=== PATIENT | female | born 1940 ===

== ENCOUNTER 2024-06-04 08:29 | Emergency (ER) | payer BC, SELFPAY ==
--- NOTE | ~2024-06-04 | XR_ITS ---
EXAMINATION: XR hip BI 2V w AP pelvis DATE: 06/04/2024 10:03 INDICATION: Fall post right hip surgery one week prior TECHNIQUE: Anteroposterior view of the pelvis and anteroposterior and frog-leg lateral views of the l eft hip and anteroposterior and cross-table lateral views of the right hip and were obtained. COMPARISON: None. FINDINGS: Mild lumbar levocurvature with at least moderate lower lumbar spondylosis. Subcapital fracture of the proximal right femur which is fixed with 3 cannulated screws with washers. No other fractures identi fied. Mild bilateral hip and sacroiliac osteoarthritis. Atherosclerotic calcifications in the pelvis and left groin. IMPRESSION: 1. Laterally impacted subcapital fracture of the proximal right femur with screw fixation. No acute o sseous abnormality. Reviewed, dictated and finalized at location B. TURNER IMPRESSION: 1. Laterally impacted subcapital fracture of the proximal right femur with scre w fixation. No acute osseous abnormality.
--- NOTE | ~2024-06-04 | CT_ITS ---
CT head without contrast Indication: Status post fall Technique: Serial scans were obtained through the brain without the administration of contrast. Dose reduction technique was used on this scan by utilizing automated exposure control and iterative recon struction technique. The dose-length product (DLP) was 605.33 mGy-cm. Findings: There is no evidence of intracranial hemorrhage, mass lesion, or acute infarct. The ventri cles and subarachnoid spaces are dilated, consistent with moderate atrophy. Low attenuation regions are seen within the periventricular white matter bilaterally, likely representing changes from chroni c microvascular ischemic disease. There is no evidence of edema, mass effect or midline shift. The visualized paranasal sinuses and mastoid air cells are clear. Impression: No intracranial hemorrhage, mass, or acute infarct. Atrophy and chronic white matter changes, as above. Reviewed, dictated and finalized at location . WINDER Impression: No intracranial hemorrhage, mass, or acute infarct. Atrophy and chronic white matter changes, as above.
--- NOTE | ~2024-06-04 | XR_ITS ---
EXAMINATION: XR chest 2V DATE: 06/04/2024 10:03 INDICATION: Fall post hip surgery one week prior TECHNIQUE: frontal and lateral views of the chest were obtained. COMPARISON: None FINDINGS: There are coarse interstitial opacities in the bilateral mid and lower lung zones which could represe nt mild pulmonary edema or less likely pneumonia in the acute setting or more chronic interstitial talat ng disease. No pleural effusion or pneumothorax. Heart size is normal. Mild S-shaped curvature of the thoracic and lumbar spine with severe midthoracic spondylosis. Surgical clips at the base of the nec k. Cholecystectomy clips in right upper quadrant. IMPRESSION: 1. Coarse interstitial pattern in the bilateral mid and lower lung zones which could represent mild p ulmonary edema, atelectasis, pneumonia or chronic interstitial lung disease. Reviewed, dictated and finalized at location B. MANAGER IMPRESSION: 1. Coarse interstitial pattern in the bilateral mid and lower lung zones which could represent mild pulmonary edema, atelectasis, pneumonia or chronic interst itial lung disease.
--- NOTE | ~2024-06-04 | CT_ITS ---
EXAMINATION: CT cervical spine wo con DATE: 06/04/2024 10:06 INDICATION: Fall TECHNIQUE: Computed tomography (CT) of the cervical spine was performed without intravenous contrast. Automated exposure control and iterative reconstruction technique were employed. The dose-length pr oduct was 138.28 mGy-cm. COMPARISON: None FINDINGS: 7 degrees cervicothoracic levocurvature. There is one-2 mm anterolisthesis C3 on C4 and 1-2 mm retrol isthesis C5 on C6. Moderate osteoarthritis at the atlantoaxial articulation. Vertebral body heights a re normal. No fracture. Severe disc height loss with severe uncovertebral osteoarthritis at C4-C5 and C5-C6. Mild to moderate right-sided predominant disc height loss at C6-C7. Mild disc height loss at C3-C4 and C7-T1. Posterior endplate osteophytes contribute to mild central canal stenosis at C4-C5, C 5-C6 and C6-C7. Severe facet osteoarthritis on the right at C2-C3 and C3-C4 and on the left at C4-C5, C6-C7 and C7-T1. Mild to moderate facet osteoarthritis and remainder of the cervical spine. This con tributes to mild neural from stenosis at multiple levels on both the left and right size of the cervi jordon spine. There are surgical clips at the neck likely related to prior thyroidectomy. Mild emphysema and mild biapical pleural-parenchymal scarring. IMPRESSION: 1. Severe cervical spondylosis with no acute osseous abnormality. Reviewed, dictated and finalized at location B. FEEDER OPERATOR
[2024-06-04 08:30] VITALS: BP 141/71; PULSE 91; RESP 18; O2SAT 93
--- NOTE | 2024-06-04 09:27 | ED_ITS ---
HPI - General Adult General Chief complaint: Fall Stated complaint: fall, R hip pain, recent R hip sx Time Seen by Provider: 06/04/24 09:14 History of Present Illness HPI narrative: Savannah Curry is an 84-year-old female who presents from nursing rehab facility that she is staying at after being 1 week post right hip surgery. Patient has past medical history of AFib she is on Eliquis daily, she has a history of dementia her and a recent urinary tract infection. On arrival here in the exam she is alert and oriented x4 she is requiring 2 L of oxygen which she states that has been ongoing off and on at the nursing facility since she has been there. She also states that she had a fall last night around 2330 but she is not exactly sure if she just slipped from the edge of the bed or how she fell out of the bed but staff found her on the floor and she could not get up on her own and staff assisted her up off of the floor. She denies hitting her head she denies having loss consciousness she only complains of having pain to the right hip that was postsurgical. Related Data Home Medications ?Medication ?Instructions ?Recorded ?Confirmed ?Last Taken ?Type acetaminophen 325 mg tablet 650 mg PO TID 05/30/24 05/30/24 Unknown History apixaban 5 mg tablet (Eliquis) 5 mg PO BID 05/30/24 05/30/24 Unknown History cevimeline 30 mg capsule 30 mg PO TID 05/30/24 05/30/24 Unknown History cyanocobalamin (vitamin B-12) 100 100 mcg PO DAILY 05/30/24 05/30/24 Unknown History mcg tablet diltiazem HCl 120 mg 120 mg PO DAILY 05/30/24 05/30/24 Unknown History capsule,extended release 12 hr (Cardizem SR) esomeprazole magnesium 40 mg 40 mg PO DAILY 05/30/24 05/30/24 Unknown History capsule,delayed release guaifenesin 1,200 mg tablet, 1,200 mg PO DAILY 05/30/24 05/30/24 Unknown History extended release 12 hr hydroxyzine HCl 10 mg tablet 5 mg PO HS PRN unspecified 05/30/24 05/30/24 Unknown History levothyroxine 112 mcg capsule 112 mcg PO DAILY 05/30/24 05/30/24 Unknown History lidocaine 5 % topical patch 1 patch topical Q24H 05/30/24 05/30/24 Unknown History methocarbamol 750 mg tablet 750 mg PO TID 05/30/24 05/30/24 Unknown History multivitamin 1 tablet PO DAILY 05/30/24 05/30/24 Unknown History oxycodone 5 mg tablet 2.5 mg PO Q4H PRN pain 05/30/24 05/30/24 Unknown History polyethylene glycol 3350 17 gram 17 g PO DAILY 05/30/24 05/30/24 Unknown History oral powder packet rosuvastatin 10 mg tablet 10 mg PO HS 05/30/24 05/30/24 Unknown History sennosides 8.6 mg-docusate sodium 1 tab-cap PO BID 05/30/24 05/30/24 Unknown History 50 mg tablet sertraline 100 mg tablet 100 mg PO DAILY 05/30/24 05/30/24 Unknown History Allergies Allergy/AdvReac Type Severity Reaction Status Date / Time codeine Allergy Diarrhea, Verified 06/04/24 10:29 Nausea, Vomitting sulfamethoxazole (From Allergy Hives, Verified 06/04/24 10:29 Sulfamethoxazole-Trimethoprim) Rash, Diarrhea trimethoprim (From Allergy Hives, Verified 06/04/24 10:29 Sulfamethoxazole-Trimethoprim) Rash, Diarrhea morphine AdvReac Hallucinati Verified 06/04/24 10:29 ng prednisone AdvReac Itching Verified 06/04/24 10:29 Review of Systems 2 Review of Systems: All systems reviewed & are unremarkable except as noted in HPI and below PMFSH Social History Social History Smoking status: Never smoker Alcohol intake: current Drinks per week: 1 Substance use: never Substance use type: does not use Do You Feel Safe in your Home?: Yes Lack of Transportation: No Lack of Food: Never True Current Housing: I Have Housing Concerned About Future Housing: No Difficulty Paying Gas/Electric Bills: No Difficulty Paying for Meds: No Currently Unemployed: No Education: High School Diploma/GED Difficulty w/ Childcare or Family Care: No Spiritual care concerns: No Exam 2 Narrative: GENERAL: Well-appearing, well-nourished, and in no acute distress. HEAD: Normocephalic, atraumatic. EYES: PERRLA and EOMI. ENT: Nares clear, no rhinorrhea or epistaxis. NECK: Supple. No adenopathy or masses. No carotid bruits or JVD CHEST: Clear to auscultation. No respiratory distress. No wheezes rales or rhonchi HEART: Regular rate and rhythm. No murmur heard. Normal peripheral pulses. ABDOMEN: Soft, nontender, nondistended, normal active bowel sounds. EXTREMITIES: Right hip postop dressing in place, mild swelling to the right hip area distal pulses present. Left lower extremity full range of motion intact pain distal pulses present. SKIN: Warm, dry, no rash. NEURO: No focal deficits. Alert and oriented x4 PSYCH: Normal mood and affect. Course Vital Signs Vital signs: Vital Signs Pulse Rate 91 06/04/24 08:30 Respiratory Rate 18 06/04/24 08:30 Blood Pressure 141/71 H 06/04/24 08:30 Pulse Oximetry 93 06/04/24 08:30 Oxygen Delivery Nasal Cannula 06/04/24 08:30 Oxygen Flow Rate 2 06/04/24 08:30 Temperature 36.6 C 06/04/24 14:21 Pulse Rate 98 06/04/24 16:18 Respiratory Rate 16 06/04/24 16:18 Blood Pressure 132/75 06/04/24 16:18 Pulse Oximetry 94 06/04/24 16:18 Oxygen Delivery Nasal Cannula 06/04/24 08:30 Oxygen Flow Rate 2 06/04/24 08:30 Medical Decision Making [facility] Narrative Medical decision making narrative: 82-year-old female who presents status post fall from rehab facility that happened last night around 2330. Patient states that she is not quite sure how she fell out of the bed but was able to get up by herself. She complains of pain to her right hip although did not want pain medicine in route and does not want pain medicine at this time either. She denies any shortness of breath, denies chest pain, denies any urinary symptoms denies cough denies sore throat denies runny nose or congestion. On exam patient is alert and oriented x4 there is no obvious facial trauma lung sounds clear bilaterally bowel sounds present no abdominal pain with palpation. Positive pain to her right hip surgery new pains bilateral pulses strong +2 Concern for head injury being on blood thinners, hip fracture, pneumothorax, Plan to check labs including UA with a recent UTI and imaging. CBC-white blood cell 10.2, RBCs 3.79, hemoglobin 11.5 platelet count 418 CMP-creatinine 0.52, otherwise unremarkable UA-trace leuks otherwise unremarkable [id number] non diagnostic Chest x-ray-1. Coarse interstitial pattern in the bilateral mid and lower lung zones which could represent mild pulmonary edema, atelectasis, pneumonia or chronic interstitial lung disease. CT brain-No intracranial hemorrhage, mass, or acute infarct. Atrophy and chronic white matter changes, as above. CT cervical spine-1. Severe cervical spondylosis with no acute osseous abnormality. X-ray had bilateral with pelvis -1. Laterally impacted subcapital fracture of the proximal right femur with screw fixation. No acute osseous abnormality. Discussed the labs and imaging with patient and her family and his her admission here for treatment of pneumonia for closer monitoring since she is requiring 2 L oxygen he had IV antibiotics. After to waiting for admission bad the coordinator of the rehab facility reached out and said that they can take her back continue oxygen and continue antibiotics for her pneumonia and keep a close eye on her. We discussed this plan this alternate plan with patient and family and they both agree that they would like to go back to rehab facility continue antibiotics and keep her on oxygen she can follow up with her primary care doctor for repeat x-ray. Encouraged patient to apply that she has had more symptoms or has any increased shortness of breath chest pain then she should return to the ER. And written orders to wear 2 L of oxygen while at rest and increased oxygen from 2-4 L and a activity. Written orders for continuation of azithromycin 250 mg x 1 for 4 more days and to continue ceftriaxone 1 g once daily for the next week. Medical Records Medical records reviewed: Yes I reviewed the external patient's medical records. Vital Signs Vital Signs: Vital Signs Pulse Rate 91 06/04/24 08:30 Respiratory Rate 18 06/04/24 08:30 Blood Pressure 141/71 H 06/04/24 08:30 Pulse Oximetry 93 06/04/24 08:30 Oxygen Delivery Nasal Cannula 06/04/24 08:30 Oxygen Flow Rate 2 06/04/24 08:30 Temperature 36.6 C 06/04/24 14:21 Pulse Rate 98 06/04/24 16:18 Respiratory Rate 16 06/04/24 16:18 Blood Pressure 132/75 06/04/24 16:18 Pulse Oximetry 94 06/04/24 16:18 Oxygen Delivery Nasal Cannula 06/04/24 08:30 Oxygen Flow Rate 2 06/04/24 08:30 We will review by me Lab Data Lab results reviewed: Yes I reviewed the patient's lab results. 06/04/24 10:29 06/04/24 10:29 Labs: Lab Results 06/04/24 Range/Units 10:29 WBC 10.2 H (4.5-10.0) K/mm3 RBC 3.79 L (4.2-5.4) M/mm3 Hgb 11.5 L (12.0-15.0) g/dL Hct 35.4 L (37.0-47.0) % MCV 93.4 (80-100) fl MCH 30.3 (26-34) pg MCHC 32.5 (32-36) g/dl RDW 15.8 H (11.5-14.5) % Plt Count 418 H D (150-375) k/mm3 MPV 10.1 (7.4-10.4) fl Immature Gran % (Auto) 0.9 H (0-0.5) % Neut % (Auto) 80.5 H (45.5-73.1) % Lymph % (Auto) 9.2 L (18.3-44.2) % [place] % (Auto) 7.4 (2.6-8.5) % Eos % (Auto) 1.6 (0-4.4) % Baso % (Auto) 0.4 (0.2-1.2) % Lymph # (Auto) 0.93 (0.9-3.2) K/mm3 [place] # (Auto) 0.8 H (0.1-0.6) K/mm3 Eos # (Auto) 0.2 (0-0.3) K/mm3 Baso # (Auto) 0.0 (0.0-0.1) K/mm3 Abs Immat Gran (auto) 0.09 H (0.00-0.031) K/mm3 Absolute Neuts (auto) 8.2 H (1.3-6.7) K/mm3 Absolute Nucleated RBC 0.000 (0.0-0.012) K/mm3 Nucleated RBC % 0.0 (0.0-0.2) % Sodium 137 (137-145) mmol/L Potassium 4.1 (3.4-5.0) mmol/L Chloride 101 (98-107) mmol/L Carbon Dioxide 28 (22-30) mmol/L Anion Gap 8 (4-12) mmol/L BUN 10 (7-17) mg/dL Creatinine 0.52 L (0.7-1.0) mg/dL Estim Creat Clear Calc 55 ml/min Estimated GFR > 60 (59 - ) Glucose 120 H (65-110) mg/dL Calcium 8.3 L (8.4-10.2) mg/dL Total Bilirubin 0.6 (0.2-1.3) mg/dL AST 29 (14-36) U/L ALT 19 (6-35) U/L Alkaline Phosphatase 133 H (38-126) U/L NT-Pro-B Natriuret Pep 231 H (19.9-100) pg/mL Total Protein 7.0 (6.3-8.2) g/dL Albumin 3.7 (3.5-5.1) g/dL Urine Color Yellow (Yellow) Urine Appearance Clear (Clear) Urine pH 7.5 (5.0-9.0) Ur Specific [place] 1.009 (1.001-1.035) Urine Protein Negative (Negative) mg/dL Urine Glucose (UA) Negative (Negative) mg/dL Urine Ketones Negative (Negative) mg/dL Ur Blood (Man) Negative (Negative) Urine Nitrate Negative (Negative) Urine Bilirubin Negative (Negative) Urine Urobilinogen 0.2 (<2.0) mg/dL Leukocyte Esterase Rfl Trace H (Negative) MATT/UL Urine RBC 0-2 (0-2) /hpf Urine WBC 0-5 (0-3) /hpf Ur Squamous Epith Cells None seen (Few) /hpf Urine Bacteria None seen /hpf Urine Casts 0-2 Imaging Data Radiologist's impression: Impressions Chest X-Ray 06/04/24 10:06 IMPRESSION: 1. Coarse interstitial pattern in the bilateral mid and lower lung zones which could represent mild pulmonary edema, atelectasis, pneumonia or chronic interstitial lung disease. Head CT 06/04/24 10:08 Impression: No intracranial hemorrhage, mass, or acute infarct. Atrophy and chronic white matter changes, as above. Hip/Pelvis X-Ray 06/04/24 10:08 IMPRESSION: 1. Laterally impacted subcapital fracture of the proximal right femur with screw fixation. No acute osseous abnormality. Cervical Spine CT 06/04/24 10:23 IMPRESSION: 1. Severe cervical spondylosis with no acute osseous abnormality. Discharge Plan Discharge Clinical Impression: Pneumonia Qualifiers: Pneumonia type: due to unspecified organism Laterality: bilateral Lung location: unspecified part of lung Qualified Code(s): J18.9 - Pneumonia, unspecified organism Patient Disposition: Inpatient Rehab Facility Condition: Stable Time of Disposition: 14:53
[2024-06-04 10:31] VITALS: BP 142/64; PULSE 86; RESP 18; O2SAT 92
[2024-06-04 10:44] LABS: Basophils Percent Auto 0.4 % (0.2-1.2); Eosinophils Absolute Auto 0.2 K/mm3 (0-0.3); Eosinophils Percent Auto 1.6 % (0-4.4); Hematocrit 35.4 % (37.0-47.0); Hemoglobin 11.5 g/dL (12.0-15.0); Immature Granulocyte Absolute 0.09 K/mm3 (0.00-0.031); Immature Granulocyte Percent A 0.9 % (0-0.5); Lymphocytes Absolute Auto 0.93 K/mm3 (0.9-3.2); Lymphocytes Percent Auto 9.2 % (18.3-44.2); Mean Corpuscular HGB Conc 32.5 g/dl (32-36); Mean Corpuscular Hemoglobin 30.3 pg (26-34); Mean Corpuscular Volume 93.4 fl (80-100); Mean Platelet Volume 10.1 fl (7.4-10.4); Monocytes Absolute Auto 0.8 K/mm3 (0.1-0.6); Monocytes Percent Auto 7.4 % (2.6-8.5); Neutrophils Absolute Auto 8.2 K/mm3 (1.3-6.7); Neutrophils Percent Auto 80.5 % (45.5-73.1); Platelet Count Result 418 k/mm3 (150-375); Red Blood Count 3.79 M/mm3 (4.2-5.4); Red Cell Distribution Width 15.8 % (11.5-14.5); White Blood Count 10.2 K/mm3 (4.5-10.0)
[2024-06-04 10:50] LABS: Add Urine Microscopic? YES; Appearance Urine Clear (Clear); Bacteria Urine None Seen /hpf; Bilirubin Urine Negative (Negative); Blood Urine Negative (Negative); Color Urine Yellow (Yellow); Glucose Urine UA Negative (Negative); Ketones Urine Negative (Negative); Leukocyte Esterase Ur Trace LEU/UL (Negative); Nitrate Urine Negative (Negative); Non Pathogenic Casts 0-2; Protein Urine Negative (Negative); RBC Urine 0-2 /hpf (0-2); Specific Grav Ur 1.009 (1.001-1.035); Squamous Epithelial Cell Urine None Seen /hpf (Few); Urobilinogen Urine 0.2 mg/dL (<2.0); WBC Urine 0-5 /hpf (0-3); pH Urine 7.5 (5.0-9.0)
--- OUTSIDE RECORDS SUMMARY | 2024-06-04 10:51 | XMS_ITS ---
Author Organization [facility] [address] [place] [id number] Care Team Providers Care Rag Boiler Name Role Phone Mohan Kerr MD Primary Care Provider + [phone] Behzad Fagan MD Unavailable Tamiko Teran MD Unavailable [phone] Active Problems Problem Noted Date Diagnosed Date Cognitive decline 05/28/2024 Assessment & Plan (05/28/2024 2:15 PM HADOOP ARCHITECT): - Noted by family - Score low on cognitive exam by OT - Outpatient referral to Neurology- memory clinic Acute traumatic pain 05/27/2024 Assessment & Plan (05/27/2024 12:16 PM HADOOP ARCHITECT): - Tylenol 650mg q6h - Robaxin 750mg TID - Oxycodone 2.5mg q4h PRN Acute blood loss anemia 05/27/2024 Assessment & Plan (05/30/2024 11:52 AM HADOOP ARCHITECT): - Hgb (05/26): 12.3g/dL - Hgb (05/27): 11.5g/dL - Hgb (05/28) 11.2 UTI (urinary tract infection) 05/26/2024 Assessment & Plan (05/28/2024 2:14 PM HADOOP ARCHITECT): # UTI - Urine culture (05/25): Escherichia coli - 3d ceftriaxone (susceptible), started in ED- completed Discharge planning issues 05/26/2024 Assessment & Plan (05/30/2024 11:51 AM HADOOP ARCHITECT): 05/26: PT/OT to be ordered after patient comes back from OR today 05/27: awaiting PT/OT 05/28: Weaning O2. Awaiting OT eval. 05/29-05/30 Patient is medically stable for discharge, SW/CM updated. Discharge pending facility bed availability Discharged 05/30 Closed displaced fracture of right femoral neck 05/25/2024 Assessment & Plan (05/27/2024 11:39 AM HADOOP ARCHITECT): - Orthopedic consult - Abx: periop Ancef - s/p Closed reduction, percutaneous fixation of the right hip fracture. (05/26) [CLEVER] - WBAT RLE - PT/OT Physical exam, annual 11/27/2023 Assessment & Plan (01/12/2024 1:35 PM CDT): Preventive exam; reviewed recommended preventive screenings and vaccinations. Encourage annual flu vaccine. Wear sunscreen/protective clothing when outdoors. -repeat DEXA 06/2025 Myalgia, other site 10/30/2023 Pain in both lower extremities 10/18/2023 Greater trochanteric bursitis of right hip 08/22 Hospital discharge follow-up 06/21/2023 Assessment & Plan (06/21/2023 11:11 AM HADOOP ARCHITECT): Ailyn Ly NP have personally reviewed pertinent inpatient and/or ED records, including discharge medications and [employer] if applicable. This patient's discharge medication list has been reviewed and reconciled with her outpatient medication list and has also been reviewed with patient and/or caregiver. I have noted any changes. Atrial fibrillation ([facility]) 06/21/2023 Assessment & Plan (05/27/2024 12:21 PM HADOOP ARCHITECT): - Hold Eliquis - Continue Diltiazem 120mg daily - Continue Rosuvastatin 10mg HS - Continue Cevimeline 30mg TID Assessment & Plan (01/01/2024 4:33 PM CDT): Continue apixaban. Assessment & Plan (11/27/2023 9:11 AM CDT): Following with Dr. Naqvi after episode of pAF. Denies any sob, dizziness. Doing well on diltiazem and eliquis. No problems with bleeding or bruising. Assessment & Plan (06/27/2023 2:30 PM HADOOP ARCHITECT): The patient had an episode of paroxysmal atrial fibrillation. She now is in sinus rhythm on diltiazem and Eliquis. I recommend no changes at this time Assessment & Plan (06/21/2023 11:13 AM HADOOP ARCHITECT): Clinically sinus rhythm today and rate controlled. Reviewed diltiazem and Eliquis and the risks and rationale of these medications. Reviewed other options such as warfarin which would require routine monitoring. Reviewed risks of blood clots/ bleeding. She states understanding. She is agreeable to starting Eliquis. She will also supervisor opening and picking the diltiazem from the pharmacy. She will follow-up with Dr. Naqvi as scheduled. We reviewed red flags which would warrant return to ED. She and her are in agreement with plan and states understanding. 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 Will place referral to development vice president for further evaluation and treatment. Fatigue 04/13/2023 Assessment & Plan (04/13/2023 11:34 AM HADOOP ARCHITECT): Vague reports of fatigue. She has thyroid labs ordered by Oncology. Will add CBC. Reviewed lifestyle recommendations. No other focal findings. Will monitor response. Cognitive and behavioral changes 03/06/2023 Assessment & Plan (04/13/2023 11:33 AM HADOOP ARCHITECT): A&O x3. Good conversation. Continue following with Neurology as directed. 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 Continue Synthroid 112 mcg daily. TSH in 2 months. Follow-up in 7 months Assessment & Plan (01/17/2023 10:35 PM CDT): Lab Results Component Value Date TSH 5.43 (H) 12/12/2022 Continue levothyroxine 112 mcg daily She is scheduled for repeat TSH next months. 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 Suppressed thyroglobulin is undetectable with negative anti TG antibody. TSH goal 0.3-1.0 due to recent AFib. Thyrogen stimulated labs with . Assessment & Plan (06/21/2023 11:11 AM HADOOP ARCHITECT): Stable. Continue Synthroid. Will continue to monitor. Assessment & Plan (04/13/2023 11:34 AM HADOOP ARCHITECT): Status post thyroidectomy. Continue following with multiple specialists as directed. Assessment & Plan (11/25/2022 9:42 AM CDT): S/p thyroidectomy with negative margins. Managed by ENT and radiation oncology. Repeat body scan and US in 6 months. Continues levothyroxine 88 mcg daily. Lab Results Component Value Date TSH 3.11 11/11/2022 TSH 231.00 (H) 10/26/2022 TSH 8.03 (H) 10/12/2022 Papillary carcinoma of thyroid 08/17/2022 Overview (08/17/2022): Added automatically from request for surgery [id number] Assessment & Plan (01/17/2023 10:34 PM CDT): Status post total thyroidectomy in August 2022 followed by adjuvant therapy with 30 mCi of iodine 131 in October 2022. Withdrawal whole-body scan showed uptake in thyroid bed -suppressive levothyroxine therapy as tolerated -TSH goal< 0.3. -Thyrogen stimulated thyroglobulin panel whole-body scan with radiation oncology Other osteoporosis without current pathological fracture 07/13/2022 Assessment & Plan (01/17/2023 10:32 PM CDT): Treatment options, risks and alternatives discussed. Will start denosumab 60 mg Q 6 months. Potential side effects including but not limited to allergic reaction, hypocalcemia, ONJ and atypical femoral fractures discussed. Continue calcium and vitamin-D supplementation. Repeat bone density in 2 years. Assessment & Plan (11/25/2022 8:53 AM CDT): Left fem neck -3.8 Left hip and lumbar spine -3.0 Previously taking Fosamax. Discussed medications to treat osteoporosis, patient declines. Continues calcium and vitamin D supplement and weight bearing exercise. Assessment & Plan (07/13/2022 9:48 PM HADOOP ARCHITECT): Previously treated with alendronate. She is a good candidate for denosumab. She will discuss with primary MD. Will check PTH rule out Normocalcemic hyperparathyroidism. Continue calcium and vitamin-D Weight-bearing exercises as tolerated Fall precautions.. Excessive sweating 07/13/2022 Assessment & Plan (07/13/2022 9:53 PM HADOOP ARCHITECT): 82 years old female with history of osteoporosis seen for evaluation of excessive sweating and itching. No associated tremors, palpitations or panic attacks. No new medications. Will check TFTs and morning cortisol/ACTH. Low clinical suspicion for adrenal disorder. Will check tryptase to rule out systemic mastocytosis. Will recommend dermatology evaluation if endocrine workup is unremarkable. All questions were addressed. Follow-up in 4 months. Itching 07/13/2022 Lactose intolerance 01/21/2022 Assessment & Plan (01/21/2022 12:02 PM CDT): Intermittently symptomatic. She was encouraged to continue probiotic and also avoid dairy products. I reviewed her most recent colonoscopy (2017) that did not reveal any neoplasm. Lactaid tablets p.r.n.. Regular check-up 12/31/2021 Hyperlipidemia 07/05/2019 Assessment & Plan (01/12/2024 1:34 PM CDT): Stable; continue present management with rosuvastatin 10 mg daily. Assessment & Plan (01/01/2024 4:34 PM CDT): Continue Crestor. Assessment & Plan (07/21/2023 9:32 PM CDT): Lab Results Component Value Date LDLCALC 102 12/28/2022 Stable Continue rosuvastatin. Assessment & Plan (06/27/2023 2:30 PM HADOOP ARCHITECT): Continue Crestor. Assessment & Plan (01/17/2023 10:34 PM CDT): Lipids well controlled. Continue rosuvastatin Low cholesterol diet. Assessment & Plan (12/30/2022 1:31 PM CDT): Lipids are acceptable. Continue Crestor 10 mg daily. Assessment & Plan (11/25/2022 9:30 AM CDT): Reviewed lipid panel with patient, continue crestor 10 mg daily. Assessment & Plan (07/13/2022 9:55 PM HADOOP ARCHITECT): Lab Results Component Value Date LDLCALC 103 06/23/2022 Continue rosuvastatin Low cholesterol diet Assessment & Plan (12/31/2021 1:36 PM CDT): Continue crestor at current dose. Assessment & Plan (01/01/2021 3:23 PM CDT): Continue Crestor RTC 1 year Check Lipids in about 6 months. Assessment & Plan (07/03/2020 1:51 PM HADOOP ARCHITECT): Check lipid profile today. Assessment & Plan (07/05/2019 10:10 AM HADOOP ARCHITECT): Continue Crestor. Check both lipid and hepatic panels. 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 Biopsy result revealed no evidence of dysplasia. She was reassured. Inflammatory arthritis 05/06/2019 Osteoarthritis 11/28/2012 Overview (05/19/2023): Note: Unchanged Coronary artery disease 08/01/2012 Overview (05/19/2023): Note: Unchanged Raynaud's phenomenon 08/01/2012 Overview (05/19/2023): Note: Unchanged Scleroderma 08/01/2012 Overview (05/19/2023): Note: Unchanged Snapping jaw 08/01/2012 Overview (05/19/2023): Note: Unchanged Raynauds disease 07/12/2012 Sicca syndrome 07/12/2012 Mitral valve disorder 03/27/2009 Overview (05/19/2023): Note: prolapse Assessment & Plan (12/30/2022 1:31 PM CDT): Stable, asymptomatic. Assessment & Plan (12/31/2021 1:36 PM CDT): Asymptomatic. No change. Assessment & Plan (07/03/2020 1:50 PM HADOOP ARCHITECT): Stable ECG unchanged in 4 years. Carpal tunnel syndrome 03/27/2009 Allergic rhinitis 02/10/2009 Benign essential hypertension 02/10/2009 Assessment & Plan (05/27/2024 1:03 PM HADOOP ARCHITECT): - Continue Diltiazem XT 120mg daily Palpitations 01/30/2009 Current Oncology Plans No current plan information found. Past Plans No past plan information found. Radiation Treatments * No radiation treatments are documented for this patient in [facility]. Treatments may have been administered in another system. Lifetime Dose Tracking * Chemical Lifetime Dose Automatic Entry Manual Entr y Fluoro Time 1.27 minutes 1.27 minutes 0 minutes Air kerma at the reference point (Ka,r) 12.92 mGy 1 2.92 mGy 0 mGy DLP 1,191 mGycm 1,191 mGycm 0 mGycm Resolved Problems Problem Noted Date Diagnosed Date Resolved Date Goiter diffuse 07/13/2022 01/17/2023 Assessment & Plan (07/13/2022 9:54 PM HADOOP ARCHITECT): Nodular right thyroid lobe on exam. Thyroid ultrasound for further evaluation
--- OUTSIDE RECORDS SUMMARY | 2024-06-04 10:51 | XMS_ITS | Continuity of Care Document ---
Author Organization [facility] Address [address] [place] [address] Phone Care Team Providers Care Operations Research Group Manager Name Role Phone Russell Seo MD Unavailable Unavailable Allergies, Adverse Reactions, Alerts Substance Reaction Status Criticality Sulfa (Sulfonamide Antibiotics) Active No Information Medications Medication Instructions Dosage Effective Dates (start - stop) Status Comments Celebrex 100 mg capsule take 1 capsule by oral route 2 times every day 100 MG - Active Nexium 40 mg capsule,delayed release take 1 capsule by oral route every day 40 MG - Active rosuvastatin 10 mg tablet take 1 tablet by oral route every day 10 MG - Active Voltaren 1 % topical gel apply (2G) by topical route 4 times every day to the affected area(s) - Active fluticasone 50 mcg/actuation nasal spray,suspension spray 2 spray by intranasal route every day in each nostril - Active cetirizine 10 mg tablet take 1 tablet by oral route every day as needed 10 MG - Active Vitamin D3 1,000 unit tablet take 1 tablet by oral route every day 1 tablet - Active Advance Directives Directive Yes / No Effective Date File Name No Information Encounters Encounter Description Practice Location Reason(s) For Visit Diagnoses Date Provider Providers Copied on Encounter [facility], [address], [place], [place], [id number] , [place] tel: [phone] [facility] No Information 9 Rayray Wells. [address] [facility], [address], [place], [place], [id number] , [place]. tel: [phone] [facility], [address], [place], [place], [address] , tel: [phone] [facility] No Information 8 Rayray Wells. [address] [place] [address], [address] , [place], [place], [id number] , . tel: [phone] [facility], [address], [place], [place], [id number] , tel: [phone] [facility] Screening for osteoporosis 8 Rayray Wells. [address] [place] [address], [address], [place], [place], [address] , . tel: [phone] [facility], [address], [place], [place], [address] , tel: [phone] [facility] SclerodermaGastroesop hageal reflux disease, esophagitis presence not specifiedHyperlipidem ia, unspecified hyperlipidemia typeRaynaud's phenomenon (secondary)Primary osteoarthritis involving multiple jointsScreening for breast cancerScreening for colon cancer 8 Rayray Wells. [address] [place] [address], [address] , [place], [place], [address] , . tel: [phone] Referring Provider: Russell Seo, [address] [place] [address] [address], [place], [address] . tel:[phone] Family History Family Member Type Diagnosis Age At Onset Father Problem (finding) hypercholesterolemia Father Problem (finding) prostate cancer Mother Problem (finding) alzheimer's disease Father Problem (finding) Arthritis Father Problem (finding) coronary arterioscleros is Immunizations Vaccine Date Status Comments Fluzone High-Dose , high dose, preservative free administered Source: Source U nspecified Zoster administered Source: Source Unspecified Pneumococcal polysaccharide PPV23 adminis tered Source: Source Unspecified Payers Payer name Insurance type Covered alliance party ID Authoriza tion(s) No Information Social History Type Description Quantity Date Captured Comments Alcohol Use Details Unknown Caffeine Use Details Unknown Tobacco Use Status No Information Smoking Status No Information Sex Female Sexual Orientation Straight or heterosexual Gender Identity Female Chief Complaint And Reason For Visit No Information Reason For Referral Reason For Referral No Information History Of Present Illness Encounter Date Complaint History Of Prese nt Illness No Information Functional Status Date Functional Assessmen t No Information Instructions Date Instruction Additional Infor mation No Information Assessments Type Assessment Date No Information Patient Care Teams Name Effective Dates (start - stop) Status Members No Information
--- OUTSIDE RECORDS SUMMARY | 2024-06-04 10:51 | XMS_ITS | Referral Summary ---
Author Organization [facility] [address] [place] [id number] Care Team Providers Care Paper Reel Operator Name Role Phone Mohan Kerr MD Primary Care Provider [phone] Behzad Fagan MD Unavailable [phone] Tamiko Teran MD Unavailable [phone] Encounters Date Type Department Care Team Description 05/25/2024 3:32 PM ONLINE COMMUNICATIONS MANAGER - 05/30/2024 3:41 PM ONLINE COMMUNICATIONS MANAGER Hospital Encounter [address] [address] Arpan Norman MD PhD Gianluca Garcia MD Kranker, Nicole Michel MD Closed displaced fracture of right femoral neck (HCC) (Primary Dx); Atrial fibrillation and flutter (HCC) Discharge Disposition: Discharge to SNF 05/27/2024 Treatment [facility] [address] [facility] 3rd [place] [address] Carol Ann De León MD 05/27/2024 Orders Only [facility] [address] [place] [address] Advanced Medicine 6th [place] [address] [place] [address] Ruth Hand MD Closed displaced fracture of right femoral neck (HCC) (Primary Dx) 05/26/2024 11:59 AM ONLINE COMMUNICATIONS MANAGER Anesthesia Event [facility] Operating Room 1 [place] [address] Jake Mitchell MD PhD 05/26/2024 1:15 PM ONLINE COMMUNICATIONS MANAGER - 05/26/2024 3:50 PM ONLINE COMMUNICATIONS MANAGER Surgery [facility] Operating Room [address] [place] [address] Russell Justin MD PhD PINNING PERCUTANEOUS - [place] 05/25/2024 2:56 PM ONLINE COMMUNICATIONS MANAGER - 05/25/2024 11:59 PM ONLINE COMMUNICATIONS MANAGER Hospital Encounter [facility] Discharge Disposition: Discharge to home or self care 05/25/2024 11:50 AM ONLINE COMMUNICATIONS MANAGER - 05/25/2024 2:51 PM ONLINE COMMUNICATIONS MANAGER Emergency [facility] Emergency Department 1 [place] [address] Kulwinder Johnston MD Closed fracture of right hip, initial encounter ([facility]) (Primary Dx) Discharge Disposition: Discharge to not defined facility 05/21/[address] [place] [address] Russell Pacheco MD 04/29/2024 Telephone [facility] [address] [address] Mohan Kerr MD 04/09/2024 2:58 PM ONLINE COMMUNICATIONS MANAGER - 04/09/2024 11:59 PM ONLINE COMMUNICATIONS MANAGER Hospital Encounter [facility] [address] [facility] [place] [address] Amy Wheatley NP Myalgia, other site (Primary Dx); Greater trochanteric bursitis of right hip Discharge Disposition: Discharge to home or self care 03/12/2024 1:18 PM ONLINE COMMUNICATIONS MANAGER - 03/12/2024 11:59 PM ONLINE COMMUNICATIONS MANAGER Hospital Encounter [facility] 2 [facility] [place] [address] Darian Baron MD Myalgia, other site Discharge Disposition: Discharge to home or self care from Last 3 Months Allergies Active Allergy Reactions Criticality Noted Date Comments Codeine Diarrhea,Nausea & Vomiting Low 2 Morphine Hallucinations Medium 07/12/2012 Prednisone Itching Medium 09/07/2015 Sulfamethoxazole-Trimethop rim Hives,Rash Medium 10/25/2013 Medications multivitamin tabletIndicati ons:Vitamin Deficiency Prevention Take 1 tablet by mouth daily Active guaiFENesin 1,200 mg tablet extended release 12hr Take 1,200 mg by mouth daily Active acetaminophen (TYLENOL) 325 mg tablet Take 2 tablets (650 mg total) by mouth 3 (three) times a day Active cyanocobalamin (Vitamin B-12) 100 mcg tabletIndicati ons:Prevention of Vitamin B12 Deficiency Take 1 tablet (100 mcg total) by mouth daily Active sertraline (ZOLOFT) 100 mg tablet TAKE 1 TABLET BY MOUTH ONCE DAILY 14 tablet 01/04/20 24 Active Eliquis 5 mg tablet TAKE 1 TABLET BY MOUTH TWICE DAILY 28 tablet 01/04/20 24 Active dilTIAZem SR (CARDIZEM SR) 120 mg 12 hr capsule TAKE 1 CAPSULE BY MOUTH ONCE DAILY 14 capsule 01/04/[address] (NexIUM) 40 mg capsule TAKE 1 CAPSULE BY MOUTH ONCE DAILY 14 capsule 01/04/20 24 Active levothyroxine (SYNTHROID) 112 mcg tablet TAKE 1 TABLET BY MOUTH ONCE DAILY 14 tablet 01/04/20 24 Active rosuvastatin (CRESTOR) 10 mg tablet TAKE 1 TABLET BY MOUTH AT BEDTIME 14 tablet 01/04/20 24 Active polyethylene glycol (MIRALAX) 17 gram/dose bulk powderIndicati ons:constipati on Take 17 g by mouth daily 05/30/19 25 Active methocarbamoL (ROBAXIN) 750 mg tablet Take 1 tablet (750 mg total) by mouth 3 (three) times a day 05/30/19 25 Active lidocaine (LIDODERM) 5 % Place 1 patch on the skin daily Remove & discard patch within 12 hours or as directed by . 05/31/19 25 025 Active senna-docusate (PERICOLACE) 8.6-50 mgIndications: constipation Take 1 tablet by mouth 2 (two) times a day 05/30/19 25 Active oxyCODONE (ROXICODONE) 5 mg immediate release tabletIndicati ons:Pain Take 0.5 tablets (2.5 mg total) by mouth every 4 (four) hours as needed for pain 10 tablet 05/30/19 25 Active hydrOXYzine (ATARAX) 10 mg tablet Take 0.5 tablets (5 mg total) by mouth nightly as needed for anxiety 30 tablet 05/30/19 25 Active cevimeline (EVOXAC) 30 mg capsule Take 1 capsule (30 mg total) by mouth 3 (three) times a day 42 capsule 05/30/19 25 Active diphenhydrAMIN E 25 mg capsule Take 1 tablet/capsu le (25 mg total) by mouth every morning 025 Discontinued(St op Taking at Discharge) cevimeline (EVOXAC) 30 mg capsule TAKE 1 CAPSULE BY MOUTH THREE TIMES DAILY 42 capsule 23 01/04/20 24 025 Discontinued dilTIAZem CD/XR/XT (CARDIZEM CD,DILACOR XR) 120 mg 24 hr capsule Take 1 capsule (120 mg total) by mouth daily 90 capsule 3 01/05/20 24 025 Discontinued hydrOXYzine (ATARAX) 10 mg tablet Take 0.5 tablets (5 mg total) by mouth nightly as needed for anxiety 30 tablet 05/30/19 25 025 Discontinued hydrOXYzine (ATARAX) 10 mg tablet Take 0.5 tablets (5 mg total) by mouth nightly as needed for anxiety 05/30/19 25 025 Discontinued Active Problems Problem Noted Date Diagnosed Date Cognitive decline 05/28/2024 Assessment & Plan (05/28/2024 2:15 PM ONLINE COMMUNICATIONS MANAGER): - Noted by family - Score low on cognitive exam by OT - Outpatient referral to Neurology- memory clinic Acute traumatic pain 05/27/2024 Assessment & Plan (05/27/2024 12:16 PM ONLINE COMMUNICATIONS MANAGER): - Tylenol 650mg q6h - Robaxin 750mg TID - Oxycodone 2.5mg q4h PRN Acute blood loss anemia 05/27/2024 Assessment & Plan (05/30/2024 11:52 AM ONLINE COMMUNICATIONS MANAGER): - Hgb (05/26): 12.3g/dL - Hgb (05/27): 11.5g/dL - Hgb (05/28) 11.2 UTI (urinary tract infection) 05/26/2024 Assessment & Plan (05/28/2024 2:14 PM ONLINE COMMUNICATIONS MANAGER): # UTI - Urine culture (05/25): Escherichia coli - 3d ceftriaxone (susceptible), started in ED- completed Discharge planning issues 05/26/2024 Assessment & Plan (05/30/2024 11:51 AM ONLINE COMMUNICATIONS MANAGER): 05/26: PT/OT to be ordered after patient comes back from OR today 05/27: awaiting PT/OT 05/28: Weaning O2. Awaiting OT eval. 05/29-05/30 Patient is medically stable for discharge, SW/CM updated. Discharge pending facility bed availability Discharged 05/30 Closed displaced fracture of right femoral neck 05/25/2024 Assessment & Plan (05/27/2024 11:39 AM ONLINE COMMUNICATIONS MANAGER): - Orthopedic consult - Abx: periop Ancef [...] 06/21/2023 Assessment & Plan (06/21/2023 11:11 AM ONLINE COMMUNICATIONS MANAGER): I, Ailyn Moreno NP have personally reviewed pertinent inpatient and/or ED records, including discharge medications and [employer] if applicable. This patient's discharge medication list has been reviewed and reconciled with her outpatient medication list and has also been reviewed with patient and/or caregiver. I have noted any changes. Atrial fibrillation (CMS/HCC) 06/21/2023 Assessment & Plan (05/27/2024 12:21 PM ONLINE COMMUNICATIONS MANAGER): - Hold Eliquis - Continue Diltiazem 120mg [...] bruising. Assessment & Plan (06/27/2023 2:30 PM ONLINE COMMUNICATIONS MANAGER): The patient had an episode of paroxysmal atrial fibrillation. She now is in sinus rhythm on diltiazem and Eliquis. I recommend no changes at this time Assessment & Plan (06/21/2023 11:13 AM ONLINE COMMUNICATIONS MANAGER): Clinically sinus rhythm today and rate controlled. Reviewed diltiazem and Eliquis and the risks and rationale of these medications. Reviewed other options such as warfarin which would require routine monitoring. Reviewed risks of blood clots/ bleeding. She states understanding. She is agreeable to starting Eliquis. She will also vegetable picker the diltiazem from the pharmacy. She will follow-up with Dr. Naqvi as scheduled. We reviewed red flags which would warrant return to ED. She and her are in agreement with plan and states understanding. 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 Will place referral to domestic freight forwarder for further evaluation and treatment. Fatigue 04/13/2023 Assessment & Plan (04/13/2023 11:34 AM ONLINE COMMUNICATIONS MANAGER): Vague reports of fatigue. She has thyroid labs ordered by Oncology. Will add CBC. Reviewed lifestyle recommendations. No other focal findings. Will monitor response. Cognitive and behavioral changes 03/06/2023 Assessment & Plan (04/13/2023 11:33 AM ONLINE COMMUNICATIONS MANAGER): A&O x3. Good conversation. Continue following with [...] . Assessment & Plan (06/21/2023 11:11 AM ONLINE COMMUNICATIONS MANAGER): Stable. Continue Synthroid. Will continue to monitor. Assessment & Plan (04/13/2023 11:34 AM ONLINE COMMUNICATIONS MANAGER): Status post thyroidectomy. Continue following with multiple [...] (08/17/2022): Added automatically from request for surgery [id number] Assessment & Plan (01/17/2023 10:34 PM CDT): [...] exercise. Assessment & Plan (07/13/2022 9:48 PM ONLINE COMMUNICATIONS MANAGER): Previously treated with alendronate. She is a good candidate for denosumab. She will discuss with primary MD. Will check PTH rule out Normocalcemic hyperparathyroidism. Continue calcium and vitamin-D Weight-bearing exercises as tolerated Fall precautions.. Excessive sweating 07/13/2022 Assessment & Plan (07/13/2022 9:53 PM ONLINE COMMUNICATIONS MANAGER): 82 years old female with history of [...] rosuvastatin. Assessment & Plan (06/27/2023 2:30 PM ONLINE COMMUNICATIONS MANAGER): Continue Crestor. Assessment & Plan (01/17/2023 10:34 PM CDT): Lipids well controlled. Continue rosuvastatin Low cholesterol diet. Assessment & Plan (12/30/2022 1:31 PM CDT): Lipids are acceptable. Continue Crestor 10 mg daily. Assessment & Plan (11/25/2022 9:30 AM CDT): Reviewed lipid panel with patient, continue crestor 10 mg daily. Assessment & Plan (07/13/2022 9:55 PM ONLINE COMMUNICATIONS MANAGER): Lab Results Component Value Date LDLCALC 103 06/23/2022 Continue rosuvastatin Low cholesterol diet Assessment & Plan (12/31/2021 1:36 PM CDT): Continue crestor at current dose. Assessment & Plan (01/01/2021 3:23 PM CDT): Continue Crestor RTC 1 year Check Lipids in about 6 months. Assessment & Plan (07/03/2020 1:51 PM ONLINE COMMUNICATIONS MANAGER): Check lipid profile today. Assessment & Plan (07/05/2019 10:10 AM ONLINE COMMUNICATIONS MANAGER): Continue Crestor. Check both lipid and hepatic [...] change. Assessment & Plan (07/03/2020 1:50 PM ONLINE COMMUNICATIONS MANAGER): Stable ECG unchanged in 4 years. Carpal tunnel syndrome 03/27/2009 Allergic rhinitis 02/10/2009 Benign essential hypertension 02/10/2009 Assessment & Plan (05/27/2024 1:03 PM ONLINE COMMUNICATIONS MANAGER): - Continue Diltiazem XT 120mg daily Palpitations 01/30/2009 Resolved Problems Problem Noted Date Diagnosed Date Resolved Date Goiter diffuse 07/13/2022 01/17/2023 Assessment & Plan (07/13/2022 9:54 PM ONLINE COMMUNICATIONS MANAGER): Nodular right thyroid lobe on exam. Thyroid ultrasound for further evaluation Immunizations Name Administration Dates Next Due H1N1 All Forms 02/09/2010 Influenza, Quadrivalent, Purnima l Culture-based MDCK, Antibiotic Free, Intramuscular 03/05/2019 Influenza, Quadrivalent, Spl it, Intramuscular 03/02/2018 Influenza, Quadrivalent, Spl it, Preservative Free, Intramuscular 03/05/2019,02/09/2016,02/02/2015,03/05,02/27/2013 Influenza, Trivalent, High D ose, Split, Preservative Free, Intramuscular 03/10/2017 Influenza, Trivalent, IM (MDV) 02/09/2016 Influenza, Unspecified 03/02/2023,02/05/2022 Moderna SARS-CoV-2 Monovalen t Vaccination (12+ YRS) 05/20/2020 Pneumococcal Conjugate PCV 13 02/09/2016 Pneumococcal Polysaccharide PPV23 02/09/2016,10/2008 RSV Vaccine, Pref, Recombina nt, Subunit, Adjuvanted, PF, IM (Arexvy) 03/02/2023 Tdap 03/22/2019,06/23/2015,06/19/2015 ZOSTER LIVE 02/19/2019,11/05/2016,12/02/2010 ZOSTER Recombinant 04/22/2019,02/19/2019 Social History Tobacco Use Types Packs/Day Years Used Date Smoking Tobacco: Former Cigarettes Passive Smoke Exposure: Past Smokeless Tobacco: Never Tobacco Cessation:Counseling Given: Not Answered Alcohol Use Standard Drinks/Week Comments Never 0 (1 standard drink = 0.6 oz pur e alcohol) AUDIT-C Answer Date Recorded Q1: How often do you have a drink containing alc ohol? Monthly or less 08/29/2023 Q2: How many drinks containi ng alcohol do you have on a typical day when you are drinking? 1 or 2 08/29/2023 Q3: How often do you have si x or more drinks on one occasion? Never 08/29/2023 PHQ-2 Answer Date Recorded PHQ-2 Total Score (If total score is 3 or more points, staff should administer the PHQ-9) 0 02/21/2024 Personal Safety Answer Date Recorded Have you ever been in or are you currently in a harmful physical or emotional relationship or is someone making you feel afraid or unsafe? Denies 05/25/2024 Comments No Sex and Gender Information Value Date Recorded Sex Assigned at Not on file Legal Sex Female 11:55 PM ONLINE COMMUNICATIONS MANAGER Gender Identity Female 06/28/2019 7:58 AM ONLINE COMMUNICATIONS MANAGER Sexual Orientation Straight 06/28/2019 7: 59 AM ONLINE COMMUNICATIONS MANAGER Last Filed Vital Signs Vital Sign Reading Time Taken Comments Blood Pressure 109/62 05/30/2024 11:21 AM ONLINE COMMUNICATIONS MANAGER Pulse 90 05/30/2024 11:21 AM ONLINE COMMUNICATIONS MANAGER Temperature 36.9 ??C (98.4 ??F) 05/30/2024 11:[address] Respiratory Rate 18 05/30/2024 11:21 AM ONLINE COMMUNICATIONS MANAGER Oxygen Saturation 93% 05/30/2024 1:14 PM ONLINE COMMUNICATIONS MANAGER Inhaled Oxygen Concentration - - Weight 50.8 kg (112 lb) 05/25/2024 11:51 PM ONLINE COMMUNICATIONS MANAGER Height 157.5 cm (5' 2.01 ) 05/25/2024 11:[address] Body Mass Index 20.48 05/25/2024 11:51 PM ONLINE COMMUNICATIONS MANAGER Plan of Treatment Not on file Medical Devices Implanted Type Area Marine Firefighter Device Identifier Shelf Expiration Date Model / Serial / Lot Synthes 7.3mm 8.2mm 2.9mm 80mm Cannulated Self Tap Self Drill 209.680 - S0 - [id number] Implanted:Qty: 3 on 05/26/2024 by Russell Justin MD PhD at [facility] Screw Right: Hip Synthes 209.680 / 0 / 0 Synthes 13mm Washer Orthopedic Stainless Steel Nonsterile 6.5/7/7.3mm 219.99 - S0 - [id number] Implanted:Qty: 3 on 05/26/2024 by Russell Justin MD PhD at [facility] Washer Right: Hip Synthes 219.99 / 0 / 0 [employer] Sls-Clip Ligate Triangular Wire Sabrina Groove Small Chevron Clip Latex Free [id number] - [id number] Implanted:Qty: 2 on 08/25/2022 by Tamiko Teran MD at [facility] N/A: Neck [employer] [id number] 02/04/2027 [id number] / / [id number] Procedures Procedure Name Priority Date/Time Associated Diagnosis Comments EGFR Routine 05/27/2024 8:29 PM ONLINE COMMUNICATIONS MANAGER PHOSPHORUS Routine 05/27/2024 8:29 PM ONLINE COMMUNICATIONS MANAGER MAGNESIUM Routine 05/27/2024 8:29 PM ONLINE COMMUNICATIONS MANAGER BASIC METABOLIC PANEL Routine 05/27/2024 8:29 PM ONLINE COMMUNICATIONS MANAGER CBC WITHOUT DIFFERENTIAL Routine 05/27/2024 8:29 PM ONLINE COMMUNICATIONS MANAGER EGFR Routine 05/26/2024 10:39 PM ONLINE COMMUNICATIONS MANAGER PHOSPHORUS Routine 05/26/2024 10:39 PM ONLINE COMMUNICATIONS MANAGER MAGNESIUM Routine 05/26/2024 10:39 PM ONLINE COMMUNICATIONS MANAGER BASIC METABOLIC PANEL Routine 05/26/2024 10:39 PM ONLINE COMMUNICATIONS MANAGER CBC WITHOUT DIFFERENTIAL Routine 05/26/2024 10:39 PM ONLINE COMMUNICATIONS MANAGER XR SHOULDER RIGHT 2 OR MORE VIEWS ED Urgent/IP Urgent 05/26/2024 9:10 PM ONLINE COMMUNICATIONS MANAGER FL FLUOROSCOPY < 1 HOUR IP Routine 05/26/2024 1:00 PM ONLINE COMMUNICATIONS MANAGER DE AN PROCEDURE PLACEHOLDER Routine 05/26/2024 12:40 PM ONLINE COMMUNICATIONS MANAGER DE AN PROCEDURE PLACEHOLDER Routine 05/26/2024 12:39 PM ONLINE COMMUNICATIONS MANAGER DE AN ELECTIVE ENDOTRACHEAL AIRWAY Routine 05/26/2024 12:39 PM ONLINE COMMUNICATIONS MANAGER PINNING PERCUTANEOUS - HIP 05/26/2024 12:01 PM ONLINE COMMUNICATIONS MANAGER Closed displaced fracture of right femoral neck (HCC) PREPARE RBC Timed 05/26/2024 3:07 AM ONLINE COMMUNICATIONS MANAGER TROPONIN I HIGH-SENSITIVITY 4-HOUR Timed 05/25/2024 9:35 PM ONLINE COMMUNICATIONS MANAGER POCUS GUIDED NEEDLE PLACEMENT 05/25/2024 9:33 PM ONLINE COMMUNICATIONS MANAGER URINALYSIS, MICROSCOPIC ONLY STAT 05/25/2024 7:26 PM ONLINE COMMUNICATIONS MANAGER URINE CULTURE STAT 05/25/2024 7:26 PM ONLINE COMMUNICATIONS MANAGER URINALYSIS AND REFLEX TO MICROSCOPIC AND CULTURE STAT 05/25/2024 7:26 PM ONLINE COMMUNICATIONS MANAGER TROPONIN I HIGH-SENSITIVITY 2-HOUR Timed 05/25/2024 7:21 PM ONLINE COMMUNICATIONS MANAGER DE INJECTION AA&/STRD OTHER PERIPHERAL NERVE/BRANCH Routine 05/25/2024 6:32 PM ONLINE COMMUNICATIONS MANAGER CT PELVIS WO CONTRAST ED 05/25/2024 5:47 PM ONLINE COMMUNICATIONS MANAGER CT HEAD AND CERVICAL SPINE WO CONTRAST ED 05/25/2024 5:47 PM ONLINE COMMUNICATIONS MANAGER ECG 12-LEAD Routine 05/25/2024 5:31 PM ONLINE COMMUNICATIONS MANAGER TROPONIN I HIGH-SENSITIVITY SERIES (BASELINE, 2HR, 4HR, 6HR) STAT 05/25/2024 5:22 PM ONLINE COMMUNICATIONS MANAGER ANTIBODY IDENTIFICATION STAT 05/25/2024 5:21 PM ONLINE COMMUNICATIONS MANAGER XR KNEE RIGHT 1 OR 2 VIEWS ED 05/25/2024 5:18 PM ONLINE COMMUNICATIONS MANAGER XR FEMUR RIGHT 2 OR MORE VIEWS ED 05/25/2024 5:17 PM ONLINE COMMUNICATIONS MANAGER XR CHEST 1 VIEW ED 05/25/2024 5:17 PM ONLINE COMMUNICATIONS MANAGER B CHECK SAMPLE STAT 05/25/2024 4:38 PM ONLINE COMMUNICATIONS MANAGER EGFR STAT 05/25/2024 4:26 PM ONLINE COMMUNICATIONS MANAGER DIFFERENTIAL AUTO STAT 05/25/2024 4:2 6 PM ONLINE COMMUNICATIONS MANAGER HEPARIN ANTI FACTOR XA ACTIVITY STAT 05/25/2024 4:26 PM ONLINE COMMUNICATIONS MANAGER BASIC METABOLIC PANEL STAT 05/25/2024 4:26 PM ONLINE COMMUNICATIONS MANAGER CBC WITH AUTO DIFFERENTIAL STAT 05/25/2024 4:26 PM ONLINE COMMUNICATIONS MANAGER APTT STAT 05/25/2024 4:26 PM ONLINE COMMUNICATIONS MANAGER PROTIME-INR STAT 05/25/2024 4:26 PM ONLINE COMMUNICATIONS MANAGER TYPE AND SCREEN STAT 05/25/2024 4:26 PM ONLINE COMMUNICATIONS MANAGER ECG 12-LEAD Routine 05/25/2024 1:58 PM ONLINE COMMUNICATIONS MANAGER XR HIP RIGHT W PELVIS 2 OR 3 VIEWS ED 05/25/2024 12:46 PM ONLINE COMMUNICATIONS MANAGER EGFR STAT 05/25/2024 12:32 PM ONLINE COMMUNICATIONS MANAGER DIFFERENTIAL AUTO STAT 05/25/2024 12: 32 PM ONLINE COMMUNICATIONS MANAGER COMPREHENSIVE METABOLIC PANEL STAT 05/25/2024 12:32 PM ONLINE COMMUNICATIONS MANAGER CBC WITH AUTO DIFFERENTIAL STAT 05/25/2024 12:32 PM ONLINE COMMUNICATIONS MANAGER PAIN MGMT IMAGING ULTRASOUND TRIGGER POINT INJ 3+ MUSCLE GROUP Schedule Routine, Read Routine (OP Routine) 03/12/2024 1:18 PM ONLINE COMMUNICATIONS MANAGER Myalgia, other site DEXA AXIAL SKELETON BONE DENSITY 1 OR MORE SITES Schedule Routine, Read Routine (OP Routine) 06/23/2022 12:15 PM ONLINE COMMUNICATIONS MANAGER Asymptomatic menopausal state from Last 3 Months or Most Recently Relevant to Health Maintenance Results * eGFR (05/27/2024 8:29 PM ONLINE COMMUNICATIONS MANAGER) eGFR 88 >=60 mL/min/1. 73 m2 Comment: Interpretive Data Reference Interval Normal ?>/= 90 mL/min/1.73m2 Mildly decreased* ? 60 - 89 mL/min/1.73m2 Mildly to moderately decreased ?45 - 59 mL/min/1.73m2 Moderately to severely decreased ??30 - 44 mL/min/1.73m2 Severely decreased ?15 - 29 mL/min/1.73m2 Kidney Failure ?< 15 ??mL/min/1.73m2 *Relative to young adult level Estimated glomerular filtration rate is determined by the 2020 CKD-EPI equation recommended by the National Kidney Foundation (A Unifying Approach to GFR Estimation: Recommendations of the NKF-ASK Task Force on Reassessing the Inclusion of Race in Diagnosing Kidney Disease, JASN 202). The CKD-EPI equation should not be used for patients with unstable renal function and has not been validated in children and those over 70. Current interpretive data was last reviewed 2021. Blood 05/27/2024 8:29 PM ONLINE COMMUNICATIONS MANAGER 05/27/2024 9:28 PM ONLINE COMMUNICATIONS MANAGER Nicole Borrego MD LAB BLOOD ORDERABLES F inal Result Performing Organization Address [facility] Co de Phone Number [facility] Department [place] [address] * (ABNORMAL) CBC without differential (05/27/2024 8:29 PM ONLINE COMMUNICATIONS MANAGER) Pathologist [facility] WBC 9.1 3.8 - 9.9 K/cumm Hgb 11.2(L) 11.9 - 15.5 g/dL [facility] Hct 34.0(L) 35.6 - 45.5 % [facility] Plt 179 150 - 400 K/cumm [facility] MPV 11.0 9.1 - 12.3 fL [facility] RBC 3.58(L) 3.90 - 5.20 M/cumm [facility] MCV 95.0 81.3 - 96.4 fL [facility] MCH 31.3 27.1 - 33.3 pg [facility] MCHC 32.9 32.3 - 35.7 g/dL [facility] RDW CV 15.6(H) 11.1 - 14.9 % [facility] RDW SD 55.1(H) 35.7 - 48.1 fL [facility] NRBC abs 0.00 0.00 - 0.01 K/cumm [facility] Blood 05/27/2024 8:29 PM ONLINE COMMUNICATIONS MANAGER 05/27/2024 9:38 PM ONLINE COMMUNICATIONS MANAGER Nicole Borrego MD LAB BLOOD ORDERABLES F inal Result [facility] [place] [address] * Phosphorus (05/27/2024 8:29 PM ONLINE COMMUNICATIONS MANAGER) Phosphorus, pl 2.8 2.3 - 4.5 mg/dL Blood 05/27/2024 8:29 PM ONLINE COMMUNICATIONS MANAGER 05/27/2024 9:28 PM ONLINE COMMUNICATIONS MANAGER Nicole Borrego MD LAB BLOOD ORDERABLES F inal Result Performing Organization Address [facility] Co de Phone Number [facility] Department [place] [place] [address] * Magnesium (05/27/2024 8:29 PM ONLINE COMMUNICATIONS MANAGER) Pathologist [facility] Magnesium 1.8 1.4 - 2.5 mg/dL Blood 05/27/2024 8:29 PM ONLINE COMMUNICATIONS MANAGER 05/27/2024 9:28 PM ONLINE COMMUNICATIONS MANAGER Nicole Borrego MD LAB BLOOD ORDERABLES F inal Result Performing Organization Address [facility] de Phone Number [facility] [place] [address] * (ABNORMAL) Basic metabolic panel (05/27/2024 8:29 PM ONLINE COMMUNICATIONS MANAGER) [facility] Sodium 140 135 - 145 mmol/L Potassium, pl 3.9 3.3 - 4.9 mmol/L [facility] Chloride 103 97 - 110 mmol/L [facility] CO2 27 22 - 32 mmol/L [facility] Anion gap 10 2 - 15 mmol/L [facility] BUN 10 6 - 25 mg/dL [facility] Creatinine 0.64 0.60 - 1.10 mg/dL [facility] Glucose 110 70 - 199 mg/dL [facility] Comment: Interpretive Data Fasting glucose >/= 126 mg/dl is diagnostic for diabetes. ?? Fasting is defined as no caloric intake for at least 8 hours. Fasting glucose between 100 mg/dl to 125 mg/dl is diagnostic of prediabetes. In a patient with classic symptoms of hyperglycemia or hyperglycemic crisis, a random glucose >/= 200 mg/dl is diagnostic for diabetes. In the absence of unequivocal hyperglycemia, results should be confirmed by repeat testing. The classification and Diagnosis of Diabetes Diabetes Care 2021; 46: S19-S40. Current interpretive data was last revised 2022. Calcium 8.2(L) 8.5 - 10.3 mg/dL [facility] Blood 05/27/2024 8:29 PM ONLINE COMMUNICATIONS MANAGER 05/27/2024 9:28 PM ONLINE COMMUNICATIONS MANAGER Nicole Borrego MD LAB BLOOD ORDERABLES F inal Result [facility] Department [place] [address] * eGFR (05/26/2024 10:39 PM ONLINE COMMUNICATIONS MANAGER) eGFR 85 >=60 mL/min/1. 73 m2 Comment: Interpretive Data Reference Interval Normal ?>/= 90 mL/min/1.73m2 Mildly decreased* ? 60 - 89 mL/min/1.73m2 Mildly to moderately decreased ?45 - 59 mL/min/1.73m2 Moderately to severely decreased ??30 - 44 mL/min/1.73m2 Severely decreased ?15 - 29 mL/min/1.73m2 Kidney Failure ?< 15 ??mL/min/1.73m2 *Relative to young adult level Estimated glomerular filtration rate is determined by the 2020 CKD-EPI equation recommended by the National Kidney Foundation (A Unifying Approach to GFR Estimation: Recommendations of the NKF-ASK Task Force on Reassessing the Inclusion of Race in Diagnosing Kidney Disease, JASN 2020). The CKD-EPI equation should not be used for patients with unstable renal function and has not been validated in children and those over 70. Current interpretive data was last reviewed 2021. Blood 05/26/2024 10:3 9 PM ONLINE COMMUNICATIONS MANAGER 05/26/2024 11:50 PM ONLINE COMMUNICATIONS MANAGER Nicole Borrego MD LAB BLOOD ORDERABLES F inal Result Performing Organization Address [facility] de Phone Number [facility] Department [place] [address] * (ABNORMAL) CBC without differential (05/26/2024 10:39 PM ONLINE COMMUNICATIONS MANAGER) [facility] WBC 8.7 3.8 - 9.9 K/cumm Hgb 11.5(L) 11.9 - 15.5 g/dL [facility] Hct 36.2 35.6 - 45.5 % [facility] Plt 170 150 - 400 K/cumm [facility] MPV 11.0 9.1 - 12.3 fL [facility] RBC 3.74(L) 3.90 - 5.20 M/cumm [facility] MCV 96.8(H) 81.3 - 96.4 fL [facility] MCH 30.7 27.1 - 33.3 pg [facility] MCHC 31.8(L) 32.3 - 35.7 g/dL [facility] RDW CV 15.8(H) 11.1 - 14.9 % [facility] RDW SD 56.0(H) 35.7 - 48.1 fL [facility] NRBC abs 0.00 0.00 - 0.01 K/cumm [facility] Blood 05/26/2024 10:3 9 PM ONLINE COMMUNICATIONS MANAGER 05/26/2024 11:52 PM ONLINE COMMUNICATIONS MANAGER Nicole Borrego MD LAB BLOOD ORDERABLES F inal Result Performing Organization Address [facility] Co de Phone Number [facility] Department [place] [address] * Phosphorus (05/26/2024 10:39 PM ONLINE COMMUNICATIONS MANAGER) [facility] Phosphorus, pl 4.3 2.3 - 4.5 mg/dL Blood 05/26/2024 10:3 9 PM ONLINE COMMUNICATIONS MANAGER 05/26/2024 11:50 PM ONLINE COMMUNICATIONS MANAGER Nicole Borrego MD LAB BLOOD ORDERABLES F inal Result [facility] [place] [address] * Magnesium (05/26/2024 10:39 PM ONLINE COMMUNICATIONS MANAGER) [facility] Magnesium 1.8 1.4 - 2.5 mg/dL Blood 05/26/2024 10:3 9 PM ONLINE COMMUNICATIONS MANAGER 05/26/2024 11:50 PM ONLINE COMMUNICATIONS MANAGER Nicole Borrego MD LAB BLOOD ORDERABLES F inal Result Performing Organization Address [facility] Co de Phone Number [facility] [place] [address] * (ABNORMAL) Basic metabolic panel (05/26/2024 10:39 PM ONLINE COMMUNICATIONS MANAGER) [facility] Sodium 144 135 - 145 mmol/L Potassium, pl 3.7 3.3 - 4.9 mmol/L [facility] Chloride 108 97 - 110 mmol/L [facility] CO2 25 22 - 32 mmol/L [facility] Anion gap 11 2 - 15 mmol/L [facility] BUN 10 6 - 25 mg/dL [facility] Creatinine 0.71 0.60 - 1.10 mg/dL [facility] Glucose 113 70 - 199 mg/dL [facility] Comment: Interpretive Data Fasting glucose >/= 126 mg/dl is diagnostic for diabetes. ?? Fasting is defined as no caloric intake for at least 8 hours. Fasting glucose between 100 mg/dl to 125 mg/dl is diagnostic of prediabetes. In a patient with classic symptoms of hyperglycemia or hyperglycemic crisis, a random glucose >/= 200 mg/dl is diagnostic for diabetes. In the absence of unequivocal hyperglycemia, results should be confirmed by repeat testing. The classification and Diagnosis of Diabetes Diabetes Care 2021; 46: S19-S40. Current interpretive data was last revised 2022. Calcium 8.4(L) 8.5 - 10.3 mg/dL [facility] Blood 05/26/2024 10:3 9 PM ONLINE COMMUNICATIONS MANAGER 05/26/2024 11:50 PM ONLINE COMMUNICATIONS MANAGER Nicole Borrego MD LAB BLOOD ORDERABLES F inal Result [facility] Department [place] [address] * XR Shoulder Right 2 or More Views (05/26/2024 9:10 PM ONLINE COMMUNICATIONS MANAGER) Anatomical Region Laterality Modality Upper Extremities, Shoulder Right Comp uted Radiography 05/27/2024 6:08 AM ONLINE COMMUNICATIONS MANAGER Impressions 05/27/2024 6:08 AM ONLINE COMMUNICATIONS MANAGER 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 Electronically signed by: Johny Shaffer M.D. Narrative 05/27/2024 6:08 AM ONLINE COMMUNICATIONS MANAGER XR SHOULDER RIGHT 2 OR MORE VIEWS HISTORY: ??Right shoulder pain. FINDINGS: ??3 views of the right shoulder are obtained and interpreted without comparison. There is no fracture. ??There is moderate acromioclavicular and mild glenohumeral osteoarthritis. ??Alignment and soft tissues are normal. Procedure Note Johny Shaffer MD - 05/27/2024 XR SHOULDER RIGHT 2 OR MORE VIEWS HISTORY: Right shoulder pain. FINDINGS: 3 views of the right shoulder are obtained and interpreted without comparison. There is no fracture. There is moderate acromioclavicular and mild glenohumeral osteoarthritis. Alignment and soft tissues are normal. 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 Electronically signed by: Johny Shaffer M.D. Nicole Borrego MD IMG XR PROCEDURES Kita l Result * FL Fluoroscopy < 1 Hour (05/26/2024 1:00 PM ONLINE COMMUNICATIONS MANAGER) Narrative [facility] - 05/26/2024 1:01 PM ONLINE COMMUNICATIONS MANAGER The images from this study are not interpreted by Radiology. ??Please refer to the physician's procedure / OR operative note. us Russell Justin MD PhD IMG FLUOROSCOPY PROC EDURES Final Result [facility] * DE AN PROCEDURE PLACEHOLDER (05/26/2024 12:40 PM ONLINE COMMUNICATIONS MANAGER) Narrative Mansoor Daily CRNA - 05/26/2024 12:40 PM ONLINE COMMUNICATIONS MANAGER Mansoor Daily CRNA ? 05/26/2024 12:40 PM Peripheral IV Catheter Patient location: OR Staff: Placed by: WET ROASTER: Mansoor Daily CRNA Preprocedure prep: Prep solution: chlorhexadine PPE: gloves and provider hat/mask PIV line: Laterality: left Site: wrist Catheter size: 20 g Technique: palpatation Procedure details: occlusive dressing applied and good blood return Number of attempts: 1 Assessment: Events: patient tolerated procedure well with no complications us Jake Mitchell MD PhD ANESTHESIA ORDERABLES Final Result * DE AN ELECTIVE ENDOTRACHEAL AIRWAY, DE AN PROCEDURE PLACEHOLDER (05/26/2024 12:39 PM ONLINE COMMUNICATIONS MANAGER) Narrative Mansoor Daily CRNA - 05/26/2024 12:39 PM ONLINE COMMUNICATIONS MANAGER Mansoor Daily CRNA ? 05/26/2024 12:39 PM Airway Patient location: OR Urgency: elective Indications for airway management: anesthesia Difficult airway: no Staff: Supervising provider: Jake Mitchell MD PhD Placed by: WET ROASTER: Mansoor Daily CRNA Emergent airway documentation: Risks and benefits discussed: yes Consent obtained: yes Consent given by: patient Airway prep: Preoxygenated: yes Patient position: sniffing Mask difficulty assessment: 1 - vent by mask Spontaneous ventilation during airway: absent Sedation level during airway: GA Final airway details: Final airway type: endotracheal airway Tube type: ETT ETT size: 7.0 mm Cuffed: yes Technique used for successful ETT placement: direct laryngoscopy Insertion site: oral Blade type: Edie Blade size: 3 Cormack-Lehane (direct): grade I - full view of glottis Cuff volume: 25 mL Cuff inflated with: air ETT to lips: 21 cm Placement verified by: auscultation and CO2 detection Airway secured with: silk tape Number of attempts: 1no us Jake Mitchell MD PhD ANESTHESIA ORDERABLES Final Result * Prepare RBC: 2 Units (05/26/2024 3:07 AM ONLINE COMMUNICATIONS MANAGER) Product code [id number] Unit Number [id number] 0-Y [facility] Product Blood Type ONEG [facility] Dispense Status RETURNED [facility] Product code [id number] [facility] Unit Number [id number] 5-3 [facility] Product Blood Type ONEG [facility] Dispense Status RETURNED [facility] Blood 05/26/2024 3:07 AM ONLINE COMMUNICATIONS MANAGER 05/26/2024 3:06 AM ONLINE COMMUNICATIONS MANAGER Narrative [facility] - 05/29/2024 12:05 AM ONLINE COMMUNICATIONS MANAGER Are special requirements needed? (All products are leukoreduced and CMV- safe)- >No Date required:-[id number] LRRBC # of [id number] Reasons:-Intra-op transfusion} us Nicole Borrego MD BLOOD BANK PRODUCT ORD ERABLES Final Result [facility] Department [place] [address] * Troponin I high-sensitivity 4-hour (05/25/2024 9:35 PM ONLINE COMMUNICATIONS MANAGER) Trop I hs <4 <=17 ng/L Comment: Interpretive Data For further hscTnI resources including the diagnostic algorithm and an aid in interpretation, copy and paste this link: [email or web address].[email or web address]/show/[email or web address] Current Interpretive Data last revised 2019. Trop I hs delta 0 ng/L [facility] Trop I hs interp Insignificant [facility] Blood 05/25/2024 9:35 PM ONLINE COMMUNICATIONS MANAGER 05/25/2024 10:25 PM ONLINE COMMUNICATIONS MANAGER us Lesia Lisa MD LAB BLOOD ORDERABLES Fin al Result [facility] Department [place] [address] * POCUS GUIDED NEEDLE PLACEMENT (05/25/2024 9:33 PM ONLINE COMMUNICATIONS MANAGER) Anatomical Region Laterality Modality Other 05/25/2024 6:10 PM ONLINE COMMUNICATIONS MANAGER Narrative 05/25/2024 10:25 PM ONLINE COMMUNICATIONS MANAGER Performed by: Gianluca Garcia Procedural guidance: ?Exam Information: ?Exam type: ??Diagnostic ?Procedure type: ??Nerve block ?See procedure note in [facility] Electronically signed by Gianluca Garcia on Saturday, May 25, 2024 at 10:25 PM I have reviewed the images & the resident's interpretation. I agree with the findings. Procedure Note Gianluca Garcia MD - 05/25/2024 Performed by: Gianluca Garcia Procedural guidance: Exam Information: Exam type: Diagnostic Procedure type: Nerve block See procedure note in Epic Electronically signed by Gianluca Garcia on Saturday, May 25, 2024 at10:25 PM I have reviewed the images & the resident's interpretation. I agree withthe findings. us Gianluca Garcia MD POCUS ORDERABLES Final Res ult * (ABNORMAL) Urinalysis reflex to microscopic and culture Urine, bladder (05/25/2024 7:26 PM ONLINE COMMUNICATIONS MANAGER) Color, ur Yellow Yellow Clarity, ur Cloudy(A) Clear [facility] Specific gravity, ur 1.013 1.003 - 1.030 [facility] pH, urine 7.0 [facility] Comment: Interpretive Data ? Urine pH is affected by diet, medications, systemic acid-base disturbances, and renal tubular function. ??pH may affect urinary stone formation. ??For example, urine pH below 6.0 may help reduce the tendency for calcium phosphate stones and pH greater than 6.0 may reduce the tendency for uric acid stone formation. Source: [facility] Current Interpretive Data was last revised on 2017 Protein, ur ql Trace Negative [facility] Glucose, ur ql Negative Negative [facility] Ketones, ur Negative Negative [facility] Bilirubin, ur Negative Negative [facility] Blood, ur Negative Negative [facility] Urobilinogen, ur <2.0 <2.0 mg/dL [facility] Nitrite, ur Positive(A) Negative [facility] Leukocyte esterase, ur 3+(A) Negative [facility] UA reflex comment Reflex to microscopic UA will be performed. [facility] Urine, bladder 05/25/2024 7: 26 PM ONLINE COMMUNICATIONS MANAGER 05/25/2024 7:36 PM ONLINE COMMUNICATIONS MANAGER Trinh Peacock MD LAB MICROBIOLOGY - GENERA L ORDERABLES Final Result Performing Organization Address [facility] de Phone Number [facility] Department [place] [address] * (ABNORMAL) Urinalysis, microscopic only (05/25/2024 7:26 PM ONLINE COMMUNICATIONS MANAGER) WBC, ur >50(A) 0 - 5 /HPF RBC, ur 3-5(A) 0 - 2 /HPF [facility] Bacteria, ur 4+(A) [facility] Mucous, ur Present(A) [facility] Culture Reflex Comment Reflex to urine culture will be performed. [facility] Urine, bladder 05/25/2024 7: 26 PM ONLINE COMMUNICATIONS MANAGER 05/25/2024 7:36 PM ONLINE COMMUNICATIONS MANAGER us Trinh Peacock MD LAB URINE ORDERABLES Kita l Result Performing Organization Address [facility] Co de Phone Number [facility] [place] [address] * (ABNORMAL) Urine culture Urine, bladder (05/25/2024 7:26 PM ONLINE COMMUNICATIONS MANAGER) Report Final Report: Greater than or equal to 100,000 colonies/mL of Escherichia coli (.) Organism ESCHERICHIA COLI [facility] Urine, bladder 05/25/2024 7: 26 PM ONLINE COMMUNICATIONS MANAGER 05/25/2024 8:33 PM ONLINE COMMUNICATIONS MANAGER Narrative [facility] - 05/27/2024 3:34 PM ONLINE COMMUNICATIONS MANAGER Urine culture reflexed based upon urinalysis results. Testing performed by [facility] ([phone]) Organism Antibiotic Method Susceptibility Escherichia coli Ampicillin INTERPRETATION Resistant Escherichia coli Cefazolin INTERPRETATION Susceptible Escherichia coli Nitrofurantoin INTERPRETATION Susceptible Escherichia coli Gentamicin INTERPRETATION Susceptible Escherichia coli Trimethoprim with Sulfamethoxazole IN TERPRETATION Susceptible Escherichia coli Meropenem INTERPRETATION Susceptible Escherichia coli Cefepime INTERPRETATION Susceptible Escherichia coli Ciprofloxacin INTERPRETATION Resistant Escherichia coli Ceftazidime INTERPRETATION Susceptible Escherichia coli Ceftriaxone INTERPRETATION Susceptible Escherichia coli Piperacillin/Tazobactam INTERPRETATIO N Susceptible Escherichia coli Cephalexin INTERPRETATION Susceptible Escherichia coli Cefuroxime-axetil INTERPRETATION Susceptible Escherichia coli Cefdinir INTERPRETATION Susceptible us Trinh Peacock MD LAB MICROBIOLOGY - GENERA L ORDERABLES Final Result Performing Organization Address City/[facility]/ZIP Co de Phone Number [facility] Department [place] [address] * Troponin I high-sensitivity 2-hour (05/25/2024 7:21 PM ONLINE COMMUNICATIONS MANAGER) Trop I hs 4 <=17 ng/L Comment: Interpretive Data For [facility] resources including the diagnostic algorithm and an aid in interpretation, copy and paste this link: [email or web address]/[email or web address] Current Interpretive Data last revised 2019. Trop I hs delta 0 ng/L [facility] Trop I hs interp Insignificant [facility] Blood 05/25/2024 7:21 PM ONLINE COMMUNICATIONS MANAGER 05/25/2024 7:43 PM ONLINE COMMUNICATIONS MANAGER us Lesia Lisa MD LAB BLOOD ORDERABLES Fin al Result Performing Organization Address City/[facility]/ZIP Co de Phone Number [facility] Department [place] [address] * DE INJECTION AA&/STRD OTHER PERIPHERAL NERVE/BRANCH (05/25/2024 6:32 PM ONLINE COMMUNICATIONS MANAGER) Narrative Gianluca Garcia MD - 05/25/2024 6:32 PM ONLINE COMMUNICATIONS MANAGER Lesia Lisa MD ? 05/25/2024 ??6:32 PM Nerve Block Date/Time: 05/25/2024 6:32 PM Performed by: Lesia Lisa MD Authorized by: Gianluca Garcia MD ?? [place] Protocol: ??RN Notified of Procedure: yes ?Informed consent: ??Risks, benefits, alternatives discussed ??Patient's stated name/ matches armband: ??Yes ??Allergies confirmed: yes ?Consent form signed, dated, timed; matches correct patient, intended procedure and site: ??Yes ??Imaging: ??Pertinent imaging reviewed, correctly oriented and match to patient identifiers Indications: ??Indications: ??Procedural anesthesia Location: ??Body area: ??Lower extremity ??Lower extremity nerve: ??Fascia iliaca ??Laterality: ??Right Pre-procedure details: ??Skin preparation: ??2% chlorhexidine Skin anesthesia (see MAR for exact dosages): ??Skin anesthesia method: ??None Procedure details (see MAR for exact dosages): ??Block needle gauge: ??20 G ??Guidance: ultrasound ?Anesthetic injected: ??Bupivacaine 0.5% ??Steroid injected: ??None ??Additive injected: ??Normal saline ??Injection procedure: ??Anatomic landmarks identified, incremental injection, introduced needle, anatomic landmarks palpated and negative aspiration for blood Post-procedure details: ??Dressing: bandage. ??Patient tolerance of procedure: ??Tolerated well, no immediate complications us Gianluca Garcia MD IN CLINIC/BEDSIDE ORDERABL ES Final Result * CT Head and Cervical Spine WO Contrast (05/25/2024 5:47 PM ONLINE COMMUNICATIONS MANAGER) Anatomical Region Laterality Modality Head and Neck N/A Computed Tomogra phy 05/25/2024 6:09 PM ONLINE COMMUNICATIONS MANAGER Impressions 05/25/2024 6:14 PM ONLINE COMMUNICATIONS MANAGER 1. No acute intracranial process. 2. No evidence of acute fracture in the cervical spine. 3. Retained debris noted within the upper thoracic esophagus, placing the patient risk of aspiration. ?? 4. Biapical consolidation, right greater than left, which may represent atelectasis, scarring, and/or aspiration. ?? Dictated by: Tyler Albright M.D. The radiology attending physician has personally reviewed this study, and had reviewed and/or edited this written report and agrees with it. Electronically signed by: Joseph Pryor MD Narrative 05/25/2024 6:14 PM ONLINE COMMUNICATIONS MANAGER EXAMINATION: 1. CT head without contrast 2. CT of the cervical spine without contrast HISTORY: Fall while on Eliquis. TECHNIQUE: CT of the head was performed with images acquired from skull base to vertex without intravenous contrast. CT of the cervical spine was performed according to the standard protocol without intravenous contrast. COMPARISON: MRI from 09/22/2023. FINDINGS: HEAD: Redemonstrated partially calcified meningiomas along the anterior and posterior falx cerebri measuring up to 1.0 and 1.6 cm in size, respectively. Scattered areas of periventricular white matter hypoattenuation, a nonspecific finding but likely related to chronic small vessel ischemic disease. ??Mild diffuse cerebral volume loss with associated ex vacuo ventricular dilatation. There is no acute intracranial hemorrhage. Moderate ventriculomegaly. No mass effect or midline shift is present. The zelaya-white matter differentiation is normal. ??Bilateral lens replacements and scleral calcifications. ??The visualized portions of the orbits are otherwise normal. The visualized portions of the mastoids are normal. The visualized portions of the paranasal sinuses are normal. No fractures are identified. CERVICAL SPINE: Grade 1 anterolisthesis of C3-C4, C6-C7 and C7-T1. There is no acute fracture. ??Mild diffuse osteopenia. ??Vertebral bodies are normal in height without compression fractures. Intervertebral disk heights are normal. ??Degenerative changes of the atlantoaxial articulations. ??The craniocervical junction is normal. Limited views of the skull base appear normal. The sphenoid sinus is well aerated. ??Retained debris noted within the upper thoracic esophagus. ??Biapical consolidation, right greater than left, which may represent atelectasis, scarring, and/or aspiration. ??Postsurgical changes of thyroidectomy. Varying degrees of multilevel facet and uncovertebral arthropathy leading to varying degrees of multilevel neuroforaminal stenosis. Varying degrees of multilevel degenerative disc disease, most pronounced and moderate from C4 to C6. ?No severe neuroforaminal stenosis. ??No severe spinal stenosis. ?? Procedure Note Joseph Pryor MD PhD - 05/25/2024 EXAMINATION: 1. CT head without contrast 2. CT of the cervical spine without contrast HISTORY: Fall while on Eliquis. TECHNIQUE: CT of the head was performed with images acquired from skull base to vertex without intravenous contrast. CT of the cervical spine was performed according to the standard protocol without intravenous contrast. COMPARISON: MRI from 09/22/2023. FINDINGS: HEAD: Redemonstrated partially calcified meningiomas along the anterior and posterior falx cerebri measuring up to 1.0 and 1.6 cm in size, respectively. Scattered areas of periventricular white matter hypoattenuation, a nonspecific finding but likely related to chronic small vessel ischemic disease. Mild diffuse cerebral volume loss with associated ex vacuo ventricular dilatation. There is no acute intracranial hemorrhage. Moderate ventriculomegaly. No mass effect or midline shift is present. The zelaya-white matter differentiation is normal. Bilateral lens replacements and scleral calcifications. The visualized portions of the orbits are otherwise normal. The visualized portions of the mastoids are normal. The visualized portions of the paranasal sinuses are normal. No fractures are identified. CERVICAL SPINE: Grade 1 anterolisthesis of C3-C4, C6-C7 and C7-T1. There is no acute fracture. Mild diffuse osteopenia. Vertebral bodies are normal in height without compression fractures. Intervertebral disk heights are normal. Degenerative changes of the atlantoaxial articulations. The craniocervical junction is normal. Limited views of the skull base appear normal. The sphenoid sinus is well aerated. Retained debris noted within the upper thoracic esophagus. Biapical consolidation, right greater than left, which may represent atelectasis, scarring, and/or aspiration. Postsurgical changes of thyroidectomy. Varying degrees of multilevel facet and uncovertebral arthropathy leading to varying degrees of multilevel neuroforaminal stenosis. Varying degrees of multilevel degenerative disc disease, most pronounced and moderate from C4 to C6. No severe neuroforaminal stenosis. No severe spinal stenosis. IMPRESSION: 1. No acute intracranial process. 2. No evidence of acute fracture in the cervical spine. 3. Retained debris noted within the upper thoracic esophagus, placing the patient risk of aspiration. 4. Biapical consolidation, right greater than left, which may represent atelectasis, scarring, and/or aspiration. Dictated by: Tyler Albright M.D. The radiology attending physician has personally reviewed this study, and had reviewed and/or edited this written report and agrees with it. Electronically signed by: Joseph Pryor MD us Lesia Lisa MD IMG CT PROCEDURES Final Result * CT Pelvis WO Contrast (05/25/2024 5:47 PM ONLINE COMMUNICATIONS MANAGER) Anatomical Region Laterality Modality Body N/A Computed Tomogra phy 05/25/2024 5:58 PM ONLINE COMMUNICATIONS MANAGER Impressions 05/25/2024 7:19 PM ONLINE COMMUNICATIONS MANAGER Nondisplaced minimally impacted transcervical femoral neck fracture. Dictated by: Fili Velasquez MD The radiology attending physician has personally reviewed this study, and had reviewed and/or edited this written report and agrees with it. Electronically signed by: Fidel Troncoso MD, PHD Narrative 05/25/2024 7:19 PM ONLINE COMMUNICATIONS MANAGER EXAMINATION: CT of the pelvis without intravenous contrast. HISTORY: Femoral neck fracture. TECHNIQUE: Transaxial computed tomographic images of the pelvis were obtained without contrast according to standard protocol. ?? COMPARISON: Same day radiographs. FINDINGS: Diffuse osteopenia limits evaluation. Nondisplaced minimally impacted transcervical femoral neck fracture. The femoral head is seated well within the acetabulum. ??Mild bilateral hip osteoarthritis. ??Multilevel degenerative changes in the imaged lower spine. The imaged lower pelvis is unremarkable. ??Bilateral iliac vascular calcifications. Procedure Note Fidel Troncoso MD PhD - 05/25/2024 EXAMINATION: CT of the pelvis without intravenous contrast. HISTORY: Femoral neck fracture. TECHNIQUE: Transaxial computed tomographic images of the pelvis were obtained without contrast according to standard protocol. COMPARISON: Same day radiographs. FINDINGS: Diffuse osteopenia limits evaluation. Nondisplaced minimally impacted transcervical femoral neck fracture. The femoral head is seated well within the acetabulum. Mild bilateral hip osteoarthritis. Multilevel degenerative changes in the imaged lower spine. The imaged lower pelvis is unremarkable. Bilateral iliac vascular calcifications. IMPRESSION: Nondisplaced minimally impacted transcervical femoral neck fracture. Dictated by: Fili Velasquez MD The radiology attending physician has personally reviewed this study, and had reviewed and/or edited this written report and agrees with it. Electronically signed by: Fidel Troncoso MD, PHD us Lesia Lisa MD IMG CT PROCEDURES Final Result * ECG 12-LEAD (05/25/2024 5:31 PM ONLINE COMMUNICATIONS MANAGER) Narrative [facility] - 05/25/2024 5:31 PM ONLINE COMMUNICATIONS MANAGER Gianluca Garcia MD ? 05/25/2024 ??5:31 PM ECG 12 lead Date/Time: 05/25/2024 5:31 PM Performed by: Gianluca Garcia MD Authorized by: Lesia Lisa MD ?? Rate: ??ECG rate: ??96 ??ECG rate assessment: normal ?? Rhythm: ??Rhythm: sinus rhythm ?? Ectopy: ??Ectopy: none ?? QRS: ??QRS axis: ??Normal ??QRS intervals: ??Normal Conduction: ??Conduction: normal ?? ST segments: ??ST segments: ??Normal T waves: ??T waves: normal ?? Previous ECG: ??Previous ECG: ??Unavailable Recommended Follow-up: ??Recommended follow up: further workup in the ED ?? Procedure Note Gianluca Garcia MD - 05/25/2024 5:31 PM CST Procedure ECG 12 lead Date/Time: 05/25/2024 5:31 PM Performed by: Gianluca Garcia MD Authorized by: Lesia Lisa MD Rate: ECG rate: 96 ECG rate assessment: normal Rhythm: Rhythm: sinus rhythm Ectopy: Ectopy: none QRS: QRS axis: Normal QRS intervals: Normal Conduction: Conduction: normal ST segments: ST segments: Normal T waves: T waves: normal Previous ECG: Previous ECG: Unavailable Recommended Follow-up: Recommended follow up: further workup in the ED Gianluca Garcia MD 05/25/24 1731 us Lesia Lisa MD ECG ORDERABLES Final Re sult Performing Organization Address City/[facility]/ZIP Co de Phone Number [facility] * Troponin I high-sensitivity series (baseline, 2hr, 4hr, 6hr) (05/25/2024 5:22 PM ONLINE COMMUNICATIONS MANAGER) Trop I hs <4 <=17 ng/L Comment: Interpretive Data For further hscTnI resources including the diagnostic algorithm and an aid in interpretation, copy and paste this link: [email or web address]://bjhlab.testcatalog.org/show/[email or web address] Current Interpretive Data last revised 2019. Blood 05/25/2024 5:22 PM ONLINE COMMUNICATIONS MANAGER 05/25/2024 5:38 PM ONLINE COMMUNICATIONS MANAGER us Lesia Lisa MD LAB BLOOD ORDERABLES Fin al Result Performing Organization Address [facility] Co de Phone Number SAMUEL [facility] Department [place] [address] * Antibody identification (05/25/2024 5:21 PM ONLINE COMMUNICATIONS MANAGER) [facility] Antibody ID 1 Anti-D Blood 05/25/2024 5:21 PM ONLINE COMMUNICATIONS MANAGER 05/25/2024 5:21 PM ONLINE COMMUNICATIONS MANAGER us Lesia Lisa MD LAB BLOOD BANK TEST ORDE RABLES Final Result Performing Organization Address [facility] Co de Phone Number [facility] [place] [address] * XR Knee Right 1 or 2 Views (05/25/2024 5:18 PM ONLINE COMMUNICATIONS MANAGER) Anatomical Region Laterality Modality Lower Extremities, Knee Right Computed Radiography 05/25/2024 5:24 PM ONLINE COMMUNICATIONS MANAGER Impressions 05/25/2024 8:22 PM ONLINE COMMUNICATIONS MANAGER Chest: Small lung volumes. ??Streaky bilateral opacities favor atelectasis. No pneumothorax or pleural effusion. ??Stable cardiomediastinal silhouette. Right femur: Unchanged mildly displaced subcapital right femoral neck fracture. The mid and distal femur are unremarkable. ??Mild right hip osteoarthritis. Right knee: No acute fracture or dislocation. ??Normal alignment. ??Mild tricompartmental osteoarthritis. ??No joint effusion. ??Vascular calcifications. Dictated by: Fili Velasquez MD The radiology attending physician has personally reviewed this study, and had reviewed and/or edited this written report and agrees with it. Electronically signed by: Fidel Troncoso MD, PHD Narrative 05/25/2024 8:22 PM ONLINE COMMUNICATIONS MANAGER EXAMINATION: XR CHEST 1 VIEW, XR FEMUR RIGHT 2 OR MORE VIEWS, XR KNEE RIGHT 1 OR 2 VIEWS HISTORY: dev trauma COMPARISON: 06/18/2023 Procedure Note Fidel Troncoso MD PhD - 05/25/2024 EXAMINATION: XR CHEST 1 VIEW, XR FEMUR RIGHT 2 OR MORE VIEWS, XR KNEE RIGHT 1 OR 2 VIEWS HISTORY: dev trauma COMPARISON: 06/18/2023 IMPRESSION: Chest: Small lung volumes. Streaky bilateral opacities favor atelectasis. No pneumothorax or pleural effusion. Stable cardiomediastinal silhouette. Right femur: Unchanged mildly displaced subcapital right femoral neck fracture. The mid and distal femur are unremarkable. Mild right hip osteoarthritis. Right knee: No acute fracture or dislocation. Normal alignment. Mild tricompartmental osteoarthritis. No joint effusion. Vascular calcifications. Dictated by: Fili Velasquez MD The radiology attending physician has personally reviewed this study, and had reviewed and/or edited this written report and agrees with it. Electronically signed by: Fidel Troncoso MD, PHD Lesia Lisa MD IMG XR PROCEDURES Final Result * XR Femur Right 2 or More Views (05/25/2024 5:17 PM ONLINE COMMUNICATIONS MANAGER) Anatomical Region Laterality Modality Lower Extremities, Thigh, Femur Right Computed Radiography 05/25/2024 5:24 PM ONLINE COMMUNICATIONS MANAGER Impressions 05/25/2024 8:22 PM ONLINE COMMUNICATIONS MANAGER Chest: Small lung volumes. ??Streaky bilateral opacities favor atelectasis. No pneumothorax or pleural effusion. ??Stable cardiomediastinal silhouette. Right femur: Unchanged mildly displaced subcapital right femoral neck fracture. The mid and distal femur are unremarkable. ??Mild right hip osteoarthritis. Right knee: No acute fracture or dislocation. ??Normal alignment. ??Mild tricompartmental osteoarthritis. ??No joint effusion. ??Vascular calcifications. Dictated by: Fili Velasquez MD The radiology attending physician has personally reviewed this study, and had reviewed and/or edited this written report and agrees with it. Electronically signed by: Fidel Troncoso MD, PHD Narrative 05/25/2024 8:22 PM ONLINE COMMUNICATIONS MANAGER EXAMINATION: XR CHEST 1 VIEW, XR FEMUR RIGHT 2 OR MORE VIEWS, XR KNEE RIGHT 1 OR 2 VIEWS HISTORY: dev trauma COMPARISON: 06/18/2023 Procedure Note Fidel Troncoso MD PhD - 05/25/2024 EXAMINATION: XR CHEST 1 VIEW, XR FEMUR RIGHT 2 OR MORE VIEWS, XR KNEE RIGHT 1 OR 2 VIEWS HISTORY: dev trauma COMPARISON: 06/18/2023 IMPRESSION: Chest: Small lung volumes. Streaky bilateral opacities favor atelectasis. No pneumothorax or pleural effusion. Stable cardiomediastinal silhouette. Right femur: Unchanged mildly displaced subcapital right femoral neck fracture. The mid and distal femur are unremarkable. Mild right hip osteoarthritis. Right knee: No acute fracture or dislocation. Normal alignment. Mild tricompartmental osteoarthritis. No joint effusion. Vascular calcifications. Dictated by: Fili Velasquez MD The radiology attending physician has personally reviewed this study, and had reviewed and/or edited this written report and agrees with it. Electronically signed by: Fidel Troncoso MD, PHD Lesia Lisa MD IMG XR PROCEDURES Final Result * XR Chest 1 View (05/25/2024 5:17 PM ONLINE COMMUNICATIONS MANAGER) Anatomical Region Laterality Modality Body, Chest N/A Computed Radiogr aphy 05/25/2024 5:24 PM ONLINE COMMUNICATIONS MANAGER Impressions 05/25/2024 8:22 PM ONLINE COMMUNICATIONS MANAGER Chest: Small lung volumes. ??Streaky bilateral opacities favor atelectasis. No pneumothorax or pleural effusion. ??Stable cardiomediastinal silhouette. Right femur: Unchanged mildly displaced subcapital right femoral neck fracture. The mid and distal femur are unremarkable. ??Mild right hip osteoarthritis. Right knee: No acute fracture or dislocation. ??Normal alignment. ??Mild tricompartmental osteoarthritis. ??No joint effusion. ??Vascular calcifications. Dictated by: Fili Velasquez MD The radiology attending physician has personally reviewed this study, and had reviewed and/or edited this written report and agrees with it. Electronically signed by: Fidel Troncoso MD, PHD Narrative 05/25/2024 8:22 PM ONLINE COMMUNICATIONS MANAGER EXAMINATION: XR CHEST 1 VIEW, XR FEMUR RIGHT 2 OR MORE VIEWS, XR KNEE RIGHT 1 OR 2 VIEWS HISTORY: dev trauma COMPARISON: 06/18/2023 Procedure Note Fidel Troncoso MD PhD - 05/25/2024 EXAMINATION: XR CHEST 1 VIEW, XR FEMUR RIGHT 2 OR MORE VIEWS, XR KNEE RIGHT 1 OR 2 VIEWS HISTORY: dev trauma COMPARISON: 06/18/2023 IMPRESSION: Chest: Small lung volumes. Streaky bilateral opacities favor atelectasis. No pneumothorax or pleural effusion. Stable cardiomediastinal silhouette. Right femur: Unchanged mildly displaced subcapital right femoral neck fracture. The mid and distal femur are unremarkable. Mild right hip osteoarthritis. Right knee: No acute fracture or dislocation. Normal alignment. Mild tricompartmental osteoarthritis. No joint effusion. Vascular calcifications. Dictated by: Fili Velasquez MD The radiology attending physician has personally reviewed this study, and had reviewed and/or edited this written report and agrees with it. Electronically signed by: Fidel Troncoso MD, PHD us Lesia Lisa MD IMG XR PROCEDURES Final Result * Check Sample (05/25/2024 4:38 PM ONLINE COMMUNICATIONS MANAGER) ABO Rh O Negative [facility] HCLL OTHER 05/25/2024 4:38 PM ONLINE COMMUNICATIONS MANAGER 05/25/2024 4:45 PM ONLINE COMMUNICATIONS MANAGER us Gianluca Garcia MD LAB BLOOD ORDERABLES Final Result Performing Organization Address [facility] de Phone Number [facility] Department [place] [address] [facility] * eGFR (05/25/2024 4:26 PM ONLINE COMMUNICATIONS MANAGER) eGFR 87 >=60 mL/min/1. 73 m2 Comment: Interpretive Data Reference Interval Normal ?>/= 90 mL/min/1.73m2 Mildly decreased* ? 60 - 89 mL/min/1.73m2 Mildly to moderately decreased ?45 - 59 mL/min/1.73m2 Moderately to severely decreased ??30 - 44 mL/min/1.73m2 Severely decreased ?15 - 29 mL/min/1.73m2 Kidney Failure ?< 15 ??mL/min/1.73m2 *Relative to young adult level Estimated glomerular filtration rate is determined by the 2020 CKD-EPI equation recommended by the National Kidney Foundation (A Unifying Approach to GFR Estimation: Recommendations of the NKF-ASK Task Force on Reassessing the Inclusion of Race in Diagnosing Kidney Disease, JASN 2020). The CKD-EPI equation should not be used for patients with unstable renal function and has not been validated in children and those over 70. Current interpretive data was last reviewed 2021. Blood 05/25/2024 4:26 PM ONLINE COMMUNICATIONS MANAGER 05/25/2024 4:48 PM ONLINE COMMUNICATIONS MANAGER us Lesia Lisa MD LAB BLOOD ORDERABLES Fin al Result Performing Organization Address [facility] Co de Phone Number SAMUEL [facility] Department [place] [address] * (ABNORMAL) Differential, auto (05/25/2024 4:26 PM ONLINE COMMUNICATIONS MANAGER) Neutrophil abs 8.6(H) 1.5 - 6.5 K/cumm Imm gran abs 0.0 0.0 - 0.1 K/cumm [facility] Lymphocyte abs 0.7(L) 0.8 - 3.3 K/cumm [facility] Monocyte abs 0.8 0.2 - 0.8 K/cumm [facility] Eosinophil abs 0.0 0.0 - 0.5 K/cumm [facility] Basophil abs 0.0 0.0 - 0.1 K/cumm [facility] Neutrophil pct 84.7 % [facility] Comment: Interpretive Data Percent cell count reference ranges are not reported, since discordance with absolute values may lead to misinterpretation of CBC data. Current Interpretive Data was last revised on 2017. Imm gran pct 0.4 % [facility] Comment: Interpretive Data Percent cell count reference ranges are not reported, since discordance with absolute values may lead to misinterpretation of CBC data. Current Interpretive Data was last revised on 2017. Lymphocyte pct 6.9 % [facility] Comment: Interpretive Data Percent cell count reference ranges are not reported, since discordance with absolute values may lead to misinterpretation of CBC data. Current Interpretive Data was last revised on 2017. Monocyte pct 7.6 % [facility] Comment: Interpretive Data Percent cell count reference ranges are not reported, since discordance with absolute values may lead to misinterpretation of CBC data. Current Interpretive Data was last revised on 2017. Eosinophil pct 0.2 % [facility] Comment: Interpretive Data Percent cell count reference ranges are not reported, since discordance with absolute values may lead to misinterpretation of CBC data. Current Interpretive Data was last revised on 2017. Basophil pct 0.2 % [facility] Comment: Interpretive Data Percent cell count reference ranges are not reported, since discordance with absolute values may lead to misinterpretation of CBC data. Current Interpretive Data was last revised on 2017. Blood 05/25/2024 4:26 PM ONLINE COMMUNICATIONS MANAGER 05/25/2024 4:48 PM ONLINE COMMUNICATIONS MANAGER Lesia Lisa MD LAB BLOOD ORDERABLES Fin al Result Performing Organization Address [facility] de Phone Number SAMUEL [facility] [place] [address] * Heparin anti factor Xa activity (05/25/2024 4:26 PM ONLINE COMMUNICATIONS MANAGER) [facility] Anti Factor Xa 1.87 IUnits/mL Comment: Interpretive Data Enoxaparin therapeutic range (peak): VTE treatment, Q12hr dosin.60-1.00 IUnits/mL VTE treatment, Q24hr dosin.00-2.00 IUnits/mL Q24hr dosing for renal impairment (CrCl <30 mL/min): 0.60-1.00 IUnits/mL VTE prevention: 0.10-0.40 IUnits/mL - Anti-Xa therapeutic ranges apply to blood samples drawn 4 hours after last dose (peak). - Unfractionated heparin (UFH) therapeutic range: 0.30-0.70 IUnits/mL - Direct factor Xa inhibitors (rivaroxaban, apixaban): Results must be interpreted qualitatively. No activity detected suggests little anticoagulant activity. - In severe antithrombin deficiency, anti-Xa measurement may be inaccurate. - Interpretive guidelines developed in adult populations. Interpretive guidelines for pediatric patients have not been rigorously defined. - Current interpretive data was last revised on 2018. Blood 05/25/2024 4:26 PM ONLINE COMMUNICATIONS MANAGER 05/25/2024 5:40 PM ONLINE COMMUNICATIONS MANAGER Lesia Lisa MD LAB BLOOD ORDERABLES Fin al Result Performing Organization Address [facility] de Phone Number [facility] [place] [address] * (ABNORMAL) CBC with auto differential (05/25/2024 4:26 PM ONLINE COMMUNICATIONS MANAGER) [facility] WBC 10.1(H) 3.8 - 9.9 K/cumm Hgb 12.3 11.9 - 15.5 g/dL [facility] Hct 37.9 35.6 - 45.5 % [facility] Plt 223 150 - 400 K/cumm [facility] MPV 10.2 9.1 - 12.3 fL [facility] RBC 4.15 3.90 - 5.20 M/cumm [facility] MCV 91.3 81.3 - 96.4 fL [facility] MCH 29.6 27.1 - 33.3 pg [facility] MCHC 32.5 32.3 - 35.7 g/dL [facility] RDW CV 15.4(H) 11.1 - 14.9 % [facility] RDW SD 51.8(H) 35.7 - 48.1 fL [facility] NRBC abs 0.00 0.00 - 0.01 K/cumm [facility] Blood 05/25/2024 4:26 PM ONLINE COMMUNICATIONS MANAGER 05/25/2024 4:48 PM ONLINE COMMUNICATIONS MANAGER us Lesia Lisa MD LAB BLOOD ORDERABLES Fin al Result Performing Organization Address [facility] Co de Phone Number [facility] Department [place] [address] * aPTT (05/25/2024 4:26 PM ONLINE COMMUNICATIONS MANAGER) [facility] aPTT 38 28 - 38 sec Comment: Interpretive Data Heparin therapeutic range: 66.0 - 100.0 seconds. Range based on correlation with therapeutic heparin activity range of 0.3 - 0.7 Units/mL. Current interpretive data was last revised on 2023. Blood 05/25/2024 4:26 PM ONLINE COMMUNICATIONS MANAGER 05/25/2024 5:40 PM ONLINE COMMUNICATIONS MANAGER us Lesia Lisa MD LAB BLOOD ORDERABLES Fin al Result Performing Organization Address [facility] Co de Phone Number [facility] [place] [address] * (ABNORMAL) Protime-INR (05/25/2024 4:26 PM ONLINE COMMUNICATIONS MANAGER) Pathologist [facility] PT 15.7(H) 9.7 - 13.0 sec INR 1.44(H) 0.90 - 1.20 [facility] Comment: Interpretive data Oral anticoagulant therapeutic ranges: Venous thromboembolism prophylaxis or treatment: 2.0-3.0 CARDIOLOGY Standard range: 2.0-3.0 High-intensity range: 2.5-3.5 Refer to indication-specific guidelines for appropriate target ranges for prosthetic heart valve replacement. Current interpretive data was last revised on 2019. Blood 05/25/2024 4:26 PM ONLINE COMMUNICATIONS MANAGER 05/25/2024 5:40 PM ONLINE COMMUNICATIONS MANAGER us Lesia Lisa MD LAB BLOOD ORDERABLES Fin al Result Performing Organization Address City/[facility]/ZIP Co de Phone Number [facility] [place] [address] * (ABNORMAL) Type and screen (05/25/2024 4:26 PM ONLINE COMMUNICATIONS MANAGER) [facility] Oma, indirect Positive(A) ABO Rh O Negative [facility] Blood 05/25/2024 4:26 PM ONLINE COMMUNICATIONS MANAGER 05/25/2024 4:34 PM ONLINE COMMUNICATIONS MANAGER Narrative [facility] - 05/25/2024 5:21 PM ONLINE COMMUNICATIONS MANAGER Has the patient had Daratumumab or Isatuximab in the past 6 months?->Unknown us Lesia Lisa MD LAB BLOOD BANK TEST ORDE RABLES Final Result Performing Organization Address City/[facility]/[place] [address] * (ABNORMAL) Basic metabolic panel (05/25/2024 4:26 PM ONLINE COMMUNICATIONS MANAGER) [facility] Sodium 142 135 - 145 mmol/L Potassium, pl 3.4 3.3 - 4.9 mmol/L [facility] Chloride 105 97 - 110 mmol/L [facility] CO2 26 22 - 32 mmol/L [facility] Anion gap 11 2 - 15 mmol/L [facility] BUN 9 6 - 25 mg/dL [facility] Creatinine 0.67 0.60 - 1.10 mg/dL [facility] Glucose 129 70 - 199 mg/dL [facility] Comment: Interpretive Data Fasting glucose >/= 126 mg/dl is diagnostic for diabetes. ?? Fasting is defined as no caloric intake for at least 8 hours. Fasting glucose between 100 mg/dl to 125 mg/dl is diagnostic of prediabetes. In a patient with classic symptoms of hyperglycemia or hyperglycemic crisis, a random glucose >/= 200 mg/dl is diagnostic for diabetes. In the absence of unequivocal hyperglycemia, results should be confirmed by repeat testing. The classification and Diagnosis of Diabetes Diabetes Care 2021; 46: S19-S40. Current interpretive data was last revised 2022. Calcium 8.4(L) 8.5 - 10.3 mg/dL [facility] Blood 05/25/2024 4:26 PM ONLINE COMMUNICATIONS MANAGER 05/25/2024 4:48 PM ONLINE COMMUNICATIONS MANAGER us Lesia Lisa MD LAB BLOOD ORDERABLES Fin al Result [facility] Department [place] [address] * ECG 12 lead (05/25/2024 1:58 PM ONLINE COMMUNICATIONS MANAGER) 05/25/2024 1:58 PM ONLINE COMMUNICATIONS MANAGER Narrative [facility] - 05/27/2024 9:22 AM ONLINE COMMUNICATIONS MANAGER Vent Rate: 81 bpm RR Interval: 735 msec DE Interval: 183 msec QRS Duration: 89 msec QT Interval: 392 msec QTC Interval: 429 msec P-R-T [place]: 80 - -62 - 71 degrees IMPRESSION: SINUS RHYTHM POSSIBLE LEFT ATRIAL ENLARGEMENT ??[-0.1mV P-WAVE IN V1/V2] LOW QRS VOLTAGE IN PRECORDIAL LEADS ??[QRS DEFLECTION < 1.0 mV IN CHEST LEADS] PATTERN CONSISTENT WITH PULMONARY DISEASE LEFT ANTERIOR FASCICULAR BLOCK ??[QRS AXIS <= -45, QR IN I, RS IN II] ABNORMAL ECG NO CHANGE FROM PREVIOUS TRACING NOTED Electronically Signed By: Hunter Vazquez MD us Kulwinder Johnston MD ECG ORDERABLES Final Result [facility] * XR Hip Right 2 or 3 Views W Pelvis (05/25/2024 12:46 PM ONLINE COMMUNICATIONS MANAGER) Anatomical Region Laterality Modality Lower Extremities, Hip, Pelvis Right C omputed Radiography 05/25/2024 1:00 PM ONLINE COMMUNICATIONS MANAGER Narrative 05/25/2024 1:02 PM ONLINE COMMUNICATIONS MANAGER EXAM DESCRIPTION: ?? XR HIP RIGHT 2 OR 3 VIEWS W PELVIS REASON FOR STUDY: Right hip pain after fall today. TECHNIQUE: AP pelvis and AP and frog-leg lateral views of the right hip ?? COMPARISON: Right hip radiographs 02/08/2021 FINDINGS: BONES/JOINTS: ??Mildly impacted subcapital right femoral neck fracture. ?No dislocation. ??The iliopectineal and ilioischial lines are intact. SOFT TISSUES: ??Within normal limits. IMPRESSION: Mildly impacted subcapital right femoral neck fracture. ?? THIS IS AN ELECTRONICALLY VERIFIED FINAL REPORT 05/25/2024 1:02 PM - Electronically signed by ??Yoni Calderon M.D. LB: TARIK D: ??05/25/2024 1:02 PM T: ??05/25/2024 1:02 PM Report ID: [id number] Reading Location: ??[id number] Procedure Note Yoni Calderon MD - 05/25/2024 EXAM DESCRIPTION: XR HIP RIGHT 2 OR 3 VIEWS W PELVIS REASON FOR STUDY: Right hip pain after fall today. TECHNIQUE: AP pelvis and AP and frog-leg lateral views of the right hip COMPARISON: Right hip radiographs 02/08/2021 FINDINGS: BONES/JOINTS: Mildly impacted subcapital right femoral neck fracture.No dislocation. The iliopectineal and ilioischial lines are intact. SOFT TISSUES: Within normal limits. IMPRESSION: Mildly impacted subcapital right femoral neck fracture. THIS IS AN ELECTRONICALLY VERIFIED FINAL REPORT 05/25/2024 1:02 PM - Electronically signed by Yoni Calderon M.D. LB: TARIK Report ID: [id number] Reading Location: [place] [address] Kulwinder Johnston MD IMG XR PROCEDURES Final Resu lt * eGFR (05/25/2024 12:32 PM ONLINE COMMUNICATIONS MANAGER) eGFR 88 >=60 mL/min/1. 73 m2 Comment: Interpretive Data Reference Interval Normal ?>/= 90 mL/min/1.73m2 Mildly decreased* ? 60 - 89 mL/min/1.73m2 Mildly to moderately decreased ?45 - 59 mL/min/1.73m2 Moderately to severely decreased ??30 - 44 mL/min/1.73m2 Severely decreased ?15 - 29 mL/min/1.73m2 Kidney Failure ?< 15 ??mL/min/1.73m2 *Relative to young adult level Estimated glomerular filtration rate is determined by the 2020 CKD-EPI equation recommended by the National Kidney Foundation (A Unifying Approach to GFR Estimation: Recommendations of the NKF-ASK Task Force on Reassessing the Inclusion of Race in Diagnosing Kidney Disease, JASN 2020). The CKD-EPI equation should not be used for patients with unstable renal function and has not been validated in children and those over 70. Current interpretive data was last reviewed 2021. Blood 05/25/2024 12:3 2 PM ONLINE COMMUNICATIONS MANAGER 05/25/2024 12:35 PM ONLINE COMMUNICATIONS MANAGER Kulwinder Johnston MD LAB BLOOD ORDERABLES Final R esult [facility] ([place]) 1 [facility] [place] [address] * Differential, auto (05/25/2024 12:32 PM ONLINE COMMUNICATIONS MANAGER) Neutrophil abs 4.3 1.5 - 6.5 K/cumm Imm gran abs 0.0 0.0 - 0.1 K/cumm [facility] ([facility]) Lymphocyte abs 0.9 0.8 - 3.3 K/cumm [facility] ([facility]) Monocyte abs 0.5 0.2 - 0.8 K/cumm [facility] ([facility]) Eosinophil abs 0.1 0.0 - 0.5 K/cumm [facility] ([facility]) Basophil abs 0.0 0.0 - 0.1 K/cumm [facility] ([facility]) Neutrophil pct 73.5 % [facility] ([facility]) Comment: Interpretive Data Percent cell count reference ranges are not reported, since discordance with absolute values may lead to misinterpretation of CBC data. Current Interpretive Data was last revised on 2017. Imm gran pct 0.7 % [facility] ([facility]) Comment: Interpretive Data Percent cell count reference ranges are not reported, since discordance with absolute values may lead to misinterpretation of CBC data. Current Interpretive Data was last revised on 2017. Lymphocyte pct 15.7 % [facility] ([facility]) Comment: Interpretive Data Percent cell count reference ranges are not reported, since discordance with absolute values may lead to misinterpretation of CBC data. Current Interpretive Data was last revised on 2017. Monocyte pct 8.6 % [facility] ([facility]) Comment: Interpretive Data Percent cell count reference ranges are not reported, since discordance with absolute values may lead to misinterpretation of CBC data. Current Interpretive Data was last revised on 2017. Eosinophil pct 1.0 % [facility] ([facility]) Comment: Interpretive Data Percent cell count reference ranges are not reported, since discordance with absolute values may lead to misinterpretation of CBC data. Current Interpretive Data was last revised on 2017. Basophil pct 0.5 % [facility] ([facility]) Comment: Interpretive Data Percent cell count reference ranges are not reported, since discordance with absolute values may lead to misinterpretation of CBC data. Current Interpretive Data was last revised on 2017. Blood 05/25/2024 12:3 2 PM ONLINE COMMUNICATIONS MANAGER 05/25/2024 12:35 PM ONLINE COMMUNICATIONS MANAGER Kulwinder Johnston MD LAB BLOOD ORDERABLES Final R esult [facility] ([place]) [facility] [place] [address] * (ABNORMAL) CBC with auto differential (05/25/2024 12:32 PM ONLINE COMMUNICATIONS MANAGER) WBC 5.8 3.8 - 9.9 K/cumm Hgb 13.2 11.9 - 15.5 g/dL [facility]) Hct 40.6 35.6 - 45.5 % [facility]) Plt 207 150 - 400 K/cumm [facility] ([facility]) MPV 9.9 9.1 - 12.3 fL [facility]) RBC 4.28 3.90 - 5.20 M/cumm [facility] ([facility]) MCV 94.9 81.3 - 96.4 fL [facility] ([facility]) MCH 30.8 27.1 - 33.3 pg [facility] ([facility]) MCHC 32.5 32.3 - 35.7 g/dL [facility] ([facility]) RDW CV 15.5(H) 11.1 - 14.9 % [facility]) RDW SD 53.5(H) 35.7 - 48.1 fL [facility] ([facility]) NRBC abs 0.00 0.00 - 0.01 K/cumm [facility]) Blood 05/25/2024 12:3 2 PM ONLINE COMMUNICATIONS MANAGER 05/25/2024 12:35 PM ONLINE COMMUNICATIONS MANAGER Kulwinder Johnston MD LAB BLOOD ORDERABLES Final R esult [facility] ([place]) [facility] [place] [address] * Comprehensive metabolic panel (05/25/2024 12:32 PM ONLINE COMMUNICATIONS MANAGER) Sodium 140 135 - 145 mmol/L Potassium, pl 3.8 3.3 - 4.9 mmol/L [facility]) Chloride 103 97 - 110 mmol/L [facility]) CO2 27 22 - 32 mmol/L [facility]) Anion gap 11 2 - 15 mmol/L [facility]) BUN 8 6 - 25 mg/dL [facility]) Creatinine 0.65 0.60 - 1.10 mg/dL [facility]) Glucose 135 70 - 199 mg/dL [facility] ([facility]) Comment: Interpretive Data Fasting glucose >/= 126 mg/dl is diagnostic for diabetes. ?? Fasting is defined as no caloric intake for at least 8 hours. Fasting glucose between 100 mg/dl to 125 mg/dl is diagnostic of prediabetes. In a patient with classic symptoms of hyperglycemia or hyperglycemic crisis, a random glucose >/= 200 mg/dl is diagnostic for diabetes. In the absence of unequivocal hyperglycemia, results should be confirmed by repeat testing. The classification and Diagnosis of Diabetes Diabetes Care 2021; 46: S19-S40. Current interpretive data was last revised 2022. Calcium 9.0 8.5 - 10.3 mg/dL [facility]) Bilirubin, total 0.5 0.1 - 1.2 mg/dL [facility]) Protein, pl 6.8 6.5 - 8.5 g/dL [facility]) Albumin 4.3 3.5 - 5.0 g/dL [facility]) Alk phos 107 40 - 130 Units/L [facility]) ALT 19 7 - 45 Units/L [facility]) AST 26 10 - 45 Units/L [facility]) Blood 05/25/2024 12:3 2 PM ONLINE COMMUNICATIONS MANAGER 05/25/2024 12:35 PM ONLINE COMMUNICATIONS MANAGER us Kulwinder Johnston MD LAB BLOOD ORDERABLES Final R esult [facility] ([place]) 1 [facility] Department [place] [address] * Imaging Ultrasound Trigger Point INJ 3+ Muscle Groups () (03/12/2024 1:18 PM ONLINE COMMUNICATIONS MANAGER) Narrative [facility] - 03/12/2024 1:18 PM ONLINE COMMUNICATIONS MANAGER The images from this study are not interpreted by Radiology. ??Please refer to the physician's procedure / OR operative note. us Darian Baron MD IMG PAIN MGMT PROCEDURE S Final Result Performing Organization Address [facility] Co de Phone Number [facility] * Dexa Axial Skeleton Bone Density 1 Or 2 Site (06/23/2022 12:15 PM ONLINE COMMUNICATIONS MANAGER) Anatomical Region Laterality Modality Body N/A Other 06/23/2022 7:39 PM ONLINE COMMUNICATIONS MANAGER Narrative 06/23/2022 7:40 PM ONLINE COMMUNICATIONS MANAGER EXAM DESCRIPTION: ?? DEXA AXIAL SKELETON BONE DENSITY 1 OR MORE SITES REASON FOR STUDY: ?82 y/o ?? year old ?? F ??with given history of screening. ?? 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 Maximum height: ??62 ??inches ? Weight: ??125 ??pounds Risk factors: ??Postmenopausal COMPARISON: 09/26/2018. FINDINGS: AP LUMBAR SPINE L1-L4: Total BMD is ??0.718 ??g/cm2 T-score is ??-3.0 Dissimilar scan types or analysis methods precludes assessment for calculating a significant change. ?? LEFT HIP: Total BMD is ??0.574 ??g/cm2 T-score is ??-3.0 Dissimilar scan types or analysis methods precludes assessment for calculating a significant change. ?? Femoral neck BMD is ??0.427 ??g/cm2 T-score is ??-3.8 ?? FRAX: FRAX not reported due to T-scores of hip, femoral neck and/or spine being at or below -2.5 (Osteoporosis). IMPRESSION: ??Based on the ??left femoral neck ??bone mineral density (T-score ??-3.8 ) the patient has ??osteoporosis . REFERENCE: Bone mineral density: ? Normal (T-score above or = -1.0) ? Low bone mass ??(T-score between -1.0 and -2.5) replaces the previously used term osteopenia ? Osteoporosis (T-score = or below -2.5) Medical evaluation for secondary causes of low bone mineral density may be appropriate. FRAX is a World Health Organization validated fracture risk assessment tool that calculates a person's 10 year probability of a major osteoporosis related fracture and hip fracture. ??According to the National Osteoporosis Foundation guidelines, postmenopausal women and men age 50 or older with low bone mass and a 10 year probability of a major osteoporosis related fracture = or greater than 20% or a 10 year probability of a hip fracture = or greater than 3% should be considered for treatment. For further information, including treatment recommendations, please refer to the 2013 ISCD Official Positions (http://www.iscd.org) and the NOF's Clinician's Guide to Prevention and Treatment of Osteoporosis (http://www.nof.org/professionals/clinical-guidelines) THIS IS AN ELECTRONICALLY VERIFIED FINAL REPORT 06/23/2022 7:40 PM - Electronically signed by ??Zenon Hernandez M.D. MF: [email or web address] D: ??06/23/2022 7:40 PM T: ??06/23/2022 7:40 PM Report ID: [id number] Reading Location: ??[id number] Procedure Note Zenon Hernandez MD - 06/23/2022 EXAM DESCRIPTION: DEXA AXIAL SKELETON BONE DENSITY 1 OR MORE SITES REASON FOR STUDY: 82 y/o year old F with given history ofscreening. 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 FINDINGS: AP LUMBAR SPINE L1-L4: Total BMD is 0.718 g/cm2 T-score is -3.0 Dissimilar scan types or analysis methods precludes assessment for calculating a significant change. LEFT HIP: Total BMD is 0.574 g/cm2 T-score is -3.0 Dissimilar scan types or analysis methods precludes assessment for calculating a significant change. Femoral neck BMD is 0.427 g/cm2 T-score is -3.8 FRAX: FRAX not reported due to T-scores of hip, femoral neck and/or spine beingat or below -2.5 (Osteoporosis). IMPRESSION: Based on the left femoral neck bone mineral density (T-score -3.8 )the patient has osteoporosis . REFERENCE: Bone mineral density: Normal (T-score above or = -1.0) Low bone mass (T-score between -1.0 and -2.5) replaces thepreviously used term osteopenia Osteoporosis (T-score = or below -2.5) Medical evaluation for secondary causes of low bone mineral density may be appropriate. FRAX is a World Health Organization validated fracture risk assessmenttool that calculates a person's 10 year probability of a major osteoporosisrelated fracture and hip fracture. According to the National OsteoporosisFoundation guidelines, postmenopausal women and men age 50 or older with low bonemass and a 10 year probability of a major osteoporosis related fracture = or greater than 20% or a 10 year probability of a hip fracture = or greaterthan 3% should be considered for treatment. For further information, including treatment recommendations, please referto the 2013 ISCD Official Positions (http://www.iscd.org) and the NOF's Clinician's Guide to Prevention and Treatment of Osteoporosis (http://www.nof.org/professionals/clinical-guidelines) THIS IS AN ELECTRONICALLY VERIFIED FINAL REPORT 06/23/2022 7:40 PM - Electronically signed by Zenon Hernandez M.D. MF: [email or web address] Report ID: [id number] Reading Location: [place] [address] Mohan Kerr MD IM DXA PROCEDURES Final Result from Last 3 Months or Most Recently Relevant to Health Maintenance Insurance [facility] Address: [address] [place] [address] [place] [address] MEDICARE [facility] [employer]AL Advance Directives For more information, please contact: [phone] Documents on File Type Date Recorded Patient Log Processor Operator Expl anation Power of Political Advisor 12/11/2023 9:14 AM ADVANCE DIRECTIVE 11/29/2023 3:53 PM POLST FORM Power of Political Advisor 08/25/2022 10:31 AM * Full Code (Latest Code Status on File) Date Activated Date Inactivated Comments 05/25/2024 10:22 PM 05/30/2024 7:41 PM * Full Code Date Activated Date Inactivated Comments 08/25/2022 5:56 PM 08/26/2022 9:11 PM * Full Code Date Activated Date Inactivated Comments 07/03/2018 9:48 AM 07/03/2018 3:26 PM * Full Code Date Activated Date Inactivated Comments 02/20/2018 7:32 AM 02/20/2018 1:11 PM * Full Code Date Activated Date Inactivated Comments 12/19/2017 11:45 AM 12/19/2017 2:56 PM Care Teams Paper Reel Operator Relationship Specialty Start Date End Date Mohan Kerr MD [address] [place] [address] PCP - General Family Medicine 06/23/22 Behzad Fagan MD [address] [place] [address] Consulting Physician Radiation Oncology 09/01/22 Tamiko Teran MD [address] [address] Consulting Physician Otolaryngology 09/01/22
--- OUTSIDE RECORDS SUMMARY | 2024-06-04 10:52 | XMS_ITS ---
Author Organization [facility] ela Address [address] [place] [address] Care Team Providers Care Mobile Pet Groomer Name Role Phone Leigh Newell Unavailable [phone] Lavonne Borjas NP Unavailable Unavailable zzzzMigration, zzzzProvider Unavailable Unav ailable Allergies Allergen (clinical drug ingredient) Drug/Non Drug Allergy documented on EMR Reaction Allergy Type Onset Date Status predniSONE Unknown Drug Allergy 11/16/2020 Activ e morphine Morphine Unknown Drug Allergy 11/16/2020 Active Substance with sulfonamide structure and antibacterial mechanism of action (substance) Sulfa Antibiotics Unknown Drug Allergy 11/16/2020 Active REASON FOR VISIT EMR-Kody Medications Medication SIG (Take, Route, Frequency, Duration) Notes Start Date End Date Status Magnesium Gluconate 30 mg (550 mg) take 1 tablet by oral route once ORAL 1 *Pick strength-form from [facility] for eRX* Active Fexofenadine HCl 180 MG take 1 tablet (180 mg) by oral route once daily Oral 1 Active Enzyme Digest take 1 capsule by oral route once Oral 1 Active NexIUM 40 MG take 1 capsule (40 mg) by oral route once daily Oral 1 Active Mucinex 600 mg take 1 tablet (600 mg) by oral route every 12 hours oral *Pick strength-form from [facility] for eRX* Active Women's 50 Plus Multivitamin 400 mcg-500 mg calcium-20 mcg take 1 tablet by oral route once oral 1 *Reorder from [facility] for eRx and Interaction Alerts* Active Calcium Citrate + D 315 mg-5 mcg (200 unit) take 1 tablet by oral route once oral 1 *Pick strength-form from [facility] for eRX* Active Levothyroxine Sodium 88 MCG take 1 capsule (88 mcg) by oral route once daily Oral 1 Active Cevimeline HCl 30 mg TAKE 1 CAPSULE BY MOUTH THREE TIMES DAILY FOR 30 DAYS Oral 01/16/2023 Active PROBIOTIC WITH PREBIOTIC - take 2 tablets 2 times daily oral *Reorder from [facility] for eRx and Interaction Alerts* Active Crestor 10 MG take 1 tablet (10 mg) by oral route once daily Oral 1 Active Aspirin Adult Low Strength 81 MG take 1 tablet (81 mg) by oral route once daily Oral 1 Active Calcium Carbonate 1250 mg take 2 tablets orally by mouth once a day oral *Pick strength-form from [facility] for eRX* Active esomeprazole 40 mg take orally once a day oral *Reorder from [facility] for eRx and Interaction Alerts* Active Rocaltrol 0.5 mcg take 2 capsules (1 mcg) by oral route once daily Oral 1 Active FiberCon 625 MG take 1 tablet by oral route once Oral 1 Active Align 4 mg take 1 capsule by oral route once Oral 1 Active Rosuvastatin Calcium 10 MG take 1 tablet (10 mg) by oral route once daily at bedtime Oral 1 Active Encounters Encounter Location Date Provider Diagnosis [facility] [address] [place] [address] 02/26/2023 zzzzProvider zzzzMigration Plan Of Treatment No Information Progress Notes * Savannah SKINNERDOB: [birth year] (84 yo F)Acc No.[id number]:02/26/2023 Patient:?Savannah SKINNER :1940???Age:83 Y???Sex:Female Address:[address] [place] [address] Subjective: * Chief Complaints: * ???EMR-Kody * Medical History:? * Surgical History:?Hand surge ry; 2020-11-16C section; [id number]; [id number]; 2020-11-16 * Hospitalization/Major Diagno stic Procedure:? * Family History:?Migrated Fam yolanda History: ALZHEIMER'S , Prostate Cancer .? * Social History:?Migrated Social History:?Migrated Social History: :: 3 Children , Exercise :: Exercises regularly :: note : 06/04/2021 -Cardio 2-3 times a week at [facility], Marital Status :: , Substance Use :: Alcohol-Does not give any significant history , Substance Use :: Tobacco :: Never. * Medications:?TakingCalcium C itrate + D 315 mg-5 mcg (200 unit) tablet take 1 tablet by oral route once oral 1 , Notes to Pharmacist: *Pick strength-form from [facility] for eRX*Aspirin Adult Low Strength 81 MG Tablet Delayed Release take 1 tablet (81 mg) by oral route once daily Oral 1 Women's 50 Plus Multivitamin 400 mcg-500 mg calcium-20 mcg tablet take 1 tablet by oral route once oral 1 , Notes to Pharmacist: *Reorder from [facility] for eRx and Interaction Alerts*Mucinex 600 mg tablet extended release 12hr take 1 tablet (600 mg) by oral route every 12 hours oral , Notes to Pharmacist: *Pick strength-form from [facility] for eRX*FiberCon 625 MG Tablet take 1 tablet by oral route once Oral 1 Magnesium Gluconate 30 mg (550 mg) TABLET take 1 tablet by oral route once ORAL 1 , Notes to Pharmacist: *Pick strength-form from [facility] for eRX*Align 4 mg Capsule take 1 capsule by oral route once Oral 1 Calcium Carbonate 1250 mg take 2 tablets orally by mouth once a day oral , Notes to Pharmacist: *Pick strength-form from [facility] for eRX*Cevimeline HCl 30 mg Capsule TAKE 1 CAPSULE BY MOUTH THREE TIMES DAILY FOR 30 DAYS Oral Crestor 10 MG Tablet take 1 tablet (10 mg) by oral route once daily Oral 1 Levothyroxine Sodium 88 MCG Capsule take 1 capsule (88 mcg) by oral route once daily Oral 1 Rosuvastatin Calcium 10 MG Tablet take 1 tablet (10 mg) by oral route once daily at bedtime Oral 1 Fexofenadine HCl 180 MG Tablet take 1 tablet (180 mg) by oral route once daily Oral 1 Enzyme Digest Capsule take 1 capsule by oral route once Oral 1 Rocaltrol 0.5 mcg Capsule take 2 capsules (1 mcg) by oral route once daily Oral 1 esomeprazole 40 mg take orally once a day oral , Notes to Pharmacist: *[facility] and Interaction [facility]*PROBIOTIC WITH PREBIOTIC - capsule take 2 tablets 2 times daily oral , Notes to Pharmacist: *Reorder from [facility] for eRx and Interaction Alerts*NexIUM 40 MG Capsule Delayed Release take 1 capsule (40 mg) by oral route once daily Oral 1 Taking Calcium Citrate + D 315 mg-5 mcg (200 unit) tablet take 1 tablet by oral route once oral 1 , Notes to Pharmacist: *Pick strength-form from [facility] for eRX*Taking Aspirin Adult Low Strength 81 MG Tablet Delayed Release take 1 tablet (81 mg) by oral route once daily Oral 1 Taking Women's 50 Plus Multivitamin 400 mcg-500 mg calcium-20 mcg tablet take 1 tablet by oral route once oral 1 , Notes to Pharmacist: *Reorder from [facility] for eRx and Interaction Alerts*Taking Mucinex 600 mg tablet extended release 12hr take 1 tablet (600 mg) by oral route every 12 hours oral , Notes to Pharmacist: *Pick strength-form from [facility] for eRX*Taking FiberCon 625 MG Tablet take 1 tablet by oral route once Oral 1 Taking Magnesium Gluconate 30 mg (550 mg) TABLET take 1 tablet by oral route once ORAL 1 , Notes to Pharmacist: *Pick strength-form from [facility] for eRX*Taking Align 4 mg Capsule take 1 capsule by oral route once Oral 1 Taking Calcium Carbonate 1250 mg take 2 tablets orally by mouth once a day oral , Notes to Pharmacist: *Pick strength-form from [facility] for eRX*Taking Cevimeline HCl 30 mg Capsule TAKE 1 CAPSULE BY MOUTH THREE TIMES DAILY FOR 30 DAYS Oral Taking Crestor 10 MG Tablet take 1 tablet (10 mg) by oral route once daily Oral 1 Taking Levothyroxine Sodium 88 MCG Capsule take 1 capsule (88 mcg) by oral route once daily Oral 1 Taking Rosuvastatin Calcium 10 MG Tablet take 1 tablet (10 mg) by oral route once daily at bedtime Oral 1 Taking Fexofenadine HCl 180 MG Tablet take 1 tablet (180 mg) by oral route once daily Oral 1 Taking Enzyme Digest Capsule take 1 capsule by oral route once Oral 1 Taking Rocaltrol 0.5 mcg Capsule take 2 capsules (1 mcg) by oral route once daily Oral 1 Taking esomeprazole 40 mg take orally once a day oral , Notes to Pharmacist: *Reorder from [facility] for eRx and Interaction Alerts*Taking PROBIOTIC WITH PREBIOTIC - capsule take 2 tablets 2 times daily oral , Notes to Pharmacist: *Reorder from [facility] for eRx and Interaction Alerts*Taking NexIUM 40 MG Capsule Delayed Release take 1 capsule (40 mg) by oral route once daily Oral 1 * Allergies:?predniSONE: Aller gy - Onset Date 11/16/2020Morphine: Allergy - Onset Date 11/16/2020ulfa Antibiotics: Allergy - Onset Date 11/16/2020 Objective: * Vitals:? * Physical Examination:? Assessment: Plan: * Treatment: * Procedure Codes:? * * Date:?
--- OUTSIDE RECORDS SUMMARY | 2024-06-04 10:52 | XMS_ITS | Clinical Summary ---
Author Organization [facility] Address [address] [place] [address] Care Team Providers Care Crate Tier Name Role Phone Zenon Thomas MD Primary Care Provider [phone] Allergies No known active allergies Medications atorvastatin (LIPITOR) 10 mg tablet 07/13/2015 Active celecoxib (CELEBREX) 200 mg capsule 07/28/2015 Active VOLTAREN 1 % gel 05/16/2015 Ac tive naproxen (NAPROSYN) 250 mg tablet Take 250 mg by mouth 2 times daily with meals. Active calcium-vitamin D3 (CALTRATE 600+D) 600 mg(1,500mg) -200 unit Tablet Take by mouth. Active Magnesium 100 mg Capsule Take 0.5 mg by mouth. Active ERGOCALCIFEROL, VITAMIN D2, (VITAMIN D ORAL) Take by mouth. Active cetirizine (ZyrTEC) 1 mg/mL Solution Take 1 mg by mouth daily. Active Glucosamine Sulfate 1,000 mg Capsule Take by mouth. Active Active Problems Problem Noted Date Diagnosed Date Inflammatory arthritis Family History Medical History Relation Name Comments Cancer Father Heart Disease Father Arthritis-osteo Mother Relation Name Status Comments Father Mother Social History Tobacco Use Types Packs/Day Years Used Date Smoking Tobacco: Never Smokeless Tobacco: Never Alcohol Use Standard Drinks/Week Comments No 0 (1 standard drink = 0.6 oz pur e alcohol) Comments No Sex and Gender Information Value Date Recorded Sex Assigned at Not on file Legal Sex Female 12:05 PM CDT Gender Identity Not on file Sexual Orientation Not on file Last Filed Vital Signs Vital Sign Reading Time Taken Comments Blood Pressure 119/68 07/27/2016 12:04 PM CDT Pulse 82 07/27/2016 12:04 PM CDT Temperature - - Respiratory Rate - - Oxygen Saturation - - Inhaled Oxygen Concentration - - Weight 53.5 kg (118 lb) 07/27/2016 12:04 PM CDT Height 157.5 cm (5' 2 ) 07/27/2016 12:04 PM CDT Body Mass Index 21.58 07/27/2016 12:04 PM CDT Plan of Treatment Health Maintenance Due Date Last Done Comments DTAP/TDAP/TD VACCINES (1 - Tdap) 1961 PNEUMOCOCCAL VACCINE 65+ YEARS (1 of 1 - PCV) 02/13/19 92 ZOSTER VACCINE (1 of 2) 02/14/1992 OSTEOPOROSIS SCREENING 2007 RSV VACCINE (60+ or ) (1 - 1-dose 75+ series) 2017 INFLUENZA VACCINE (#1) 2023 Insurance [facility] Advance Directives For more information, please contact: [phone] Documents on File Type Date Recorded Patient Dramatic Critic Expl anation Advance Directive Living Will 08/10/2015 2:01 PM Advance Directive Living Will Care Teams Crate Tier Relationship Specialty Start Date End Date Zenon Thomas MD [address] [place] [address] PCP - General Internal Medicine 08/10/15
--- OUTSIDE RECORDS SUMMARY | 2024-06-04 10:52 | XMS_ITS ---
Author Organization [facility] Address [address] [facility] [address] [place] [address] Care Team Providers Care Tire Technician Name Role Phone Leigh Santana Unavailable [phone] Lavonne Borjas NP Unavailable Unavailable REASON FOR VISIT 6 month f/09-07-23@1:02pm left msg to reschedule/flc Encounters Encounter Location Date Provider Diagnosis [facility] [address] [facility] [address] [place] [address] 10/09/2023 Leigh Santana Plan Of Treatment No Information Progress Notes * Savannah CURRYDOB: [birth year] (84 yo F)Acc No.[id number]:10/09/2023 Progress Notes Patient:?Savannah CURRY Provider:?LEIGH SANTANA MD :1940???Age:83 Y???Sex:Female D ate:10/09/2023 Address:[address] [place] [address] Subjective: * Chief Complaints: * ???1. 6 month f/09-07-23@1 :02pm left msg to reschedule/flc. * Medical History:? Objective: * Vitals:? Assessment: Plan: * Treatment: * Billing Information: * Visit Code:? * Procedure Codes:? * Electronic signature of Leigh Santana MD on 06/04/2024 at 10:52 AM SUPERVISOR WATER TREATMENT PLANT Sign off status: Pending * Provider:?LEIGH SANTANA MD Date:?10/09/2023 Generated for Rick escalante/Ricardo/eTransmitting on:?06/04/2024 10:52 AM SUPERVISOR WATER TREATMENT PLANT
--- OUTSIDE RECORDS SUMMARY | 2024-06-04 10:52 | XMS_ITS | Encounter Summary ---
Author Organization [facility] Address [address] [place] [address] Care Team Providers Care Phone Representative Name Role Phone Mohan Kerr MD Primary Care Provider [phone] Behzad Fagan MD Unavailable [phone] Tamiko Teran MD Unavailable [phone] Encounter Details Date Type Department Care Team (Late st Contact Info) Description 05/27/2024 Treatment [facility] [address] [facility] [address] [place] [address] Carol Ann De León MD [address] [facility] [address] [place] [address] Social History Tobacco Use Types Packs/Day Years Used Date Smoking Tobacco: Former Cigarettes Passive Smoke Exposure: Past Smokeless Tobacco: Never Alcohol Use Standard Drinks/Week Comments Never 0 [...] on file Legal Sex Female 11:55 PM ELEVATOR CONSTRUCTOR Gender Identity Female 06/28/2019 7:58 AM ELEVATOR CONSTRUCTOR Sexual Orientation Straight 06/28/2019 7: 59 AM ELEVATOR CONSTRUCTOR documented as of this encounter Progress Notes * Carol Ann De León MD - 05/27/2024 12:09 PM CST Transfusion Medicine Blood Bank Note Patient Information: ABO/Rh: O negative Antibody screen: Positive Previously identified antibodies: no known antibodies New antibodies identified: anti-D Additional testing performed: None Relevant Patient History: Savannah Curry is a 84 y.o. woman with PMH of atrial fibrillation on Eliquis, coronary artery disease, hypertension, hyperlipidemia, osteoporosis, and scleroderma who presented to the ED s/p fall. She was found to have a right femoral neck fracture. She underwent for closed reduction percutaneouspinning on 05/26/2024. Testing Information: The antibody screen was positive. Antibody identification demonstrated antibodies against the D antigen in the patient???s plasma. Additional testing was not performed. All other common, clinically significant antibodies have been ruled out. Clinical Relevance: Antibodies against the D antigen(s) generally have been implicated in hemolytic transfusion reactions. Therefore, anti-D antibodies are generally considered to be clinically significant. Presence of this antibody requires that additional testing be performed and this may result in additional time for blood product selection when ordered for transfusion. Therapeutic Relevance: ABO/Rh and crossmatch compatible red blood cell units will be provided for future transfusions. Contact Information: Please contact the [facility] Transfusion [facility] Service at (option 1) with any questions. This report has been prepared by: Carol Ann De León MD Cosigned by Ana Rosa Ruelas MD PhD at 06/01/2024 8:09 AM ELEVATOR CONSTRUCTOR ATOR CONSTRUCTOR ATOR CONSTRUCTOR Associated attestation - Ana Rosa Ruelas MD PhD - 06/01/2024 8:09 AM ELEVATOR CONSTRUCTOR Attestation: I have personally reviewed the antibody result and agree with the interpretation contained in this written blood bank report. Ana Rosa Ruelas MD PhD documented in this encounter Plan of Treatment Not on file documented as of this encounter Visit Diagnoses Not on filedocumented in this encounter Care Teams Phone Representative Relationship Specialty Start Date End Date Mohan Kerr MD [address] [place] [address] PCP - General Family Medicine 06/23/22 Behzad Fagan MD [address] [place] [address] Consulting Physician Radiation Oncology 09/01/22 Tamiko Teran MD [address] [address] Consulting Physician Otolaryngology 09/01/22 documented as of this encounter
--- OUTSIDE RECORDS SUMMARY | 2024-06-04 10:52 | XMS_ITS | Referral Summary ---
Author Organization [facility] Address [address] [facility] [place] [address] Care Team Providers Care Studio Technician Video Operator Name Role Phone Zenon Thomas MD Primary Care Provider [phone] Source Comments [facility] and Associated Physician Practices is amultiple site organization consisting of ambulatory clinics and hospital sitesin [place], [place], [place] and [place]. This disclosure is being madepursuant to the Care Everywhere program and may not contain all information available regarding this patient. Last updated 18.[facility] [employer] Allergies Active Allergy Reactions Criticality Noted Date Comments Morphine 07/12/2012 Medications * Be aware that medications may not be up to date on this document. Alwaysverify current medications with the patient. Medication Sig Dispensed Refills Start Date End Date Status atorvastatin (LIPITOR) 10 MG tablet Take 10 mg by mouth at bedtime. Active estrogens, conjugated, (PREMARIN) 0.3 MG tablet Take 0.3 mg by mouth once daily. Active metoprolol succinate XL 24hr (TOPROL XL) 25 MG tablet Take 12.5 mg by mouth once daily. Active Calcium Polycarbophil (FIBER LAXATIVE PO) Take by mouth. Active aspirin 81 MG tablet Take 81 mg by mouth once daily. Active Calcium Carbonate-Vitamin D (CALCIUM + D PO) Take by mouth. Acti ve Lactase (DAIRY DIGESTIVE SUPPLEMENT PO) Take by mouth. Active naproxen (NAPROSYN) 500 MG tablet Take 500 mg by mouth 2 times daily. Active diclofenac sodium (VOLTAREN) 1 % gel Apply to affected area 4 times daily. Active loratadine (CLARITIN) 10 MG tabletIndications:Al lergic rhinitis Take 1 Tab by mouth once daily. 30 Tab 5 07/12/2012 Active saline nasal spray (SODIUM CHLORIDE) 0.65 % nasal sprayIndications:All ergic rhinitis Stuart 1 Stuart into each nostril as needed for Dry Nose. 0 07/12/2012 Active acetaminophen (TYLENOL) 500 MG tabletIndications:Os teoarthritis Take 2 Tabs by mouth 3 times daily. Maximum allowable Acetaminophen amount = 4 Grams (4000 mg) / 24 hours. 07/12/2012 Active Cholecalciferol (VITAMIN D) 1000 UNIT capsule Take 1 Cap by mouth once daily. 07/12/2012 Active Active Problems Problem Noted Date Diagnosed Date Raynauds disease 07/12/2012 Heart murmur 07/12/2012 Sicca syndrome 07/12/2012 Social History Tobacco Use Types Packs/Day Years Used Date Smoking Tobacco: Never Assessed Sex and Gender Information Value Date Recorded Sex Assigned at Not on file Gender Identity Not on file Sexual Orientation Not on file Last Filed Vital Signs Vital Sign Reading Time Taken Comments Blood Pressure 114/80 07/12/2012 1:53 PM TECHNOLOGY RESOURCE TEACHER Pulse 72 07/12/2012 1:53 PM TECHNOLOGY RESOURCE TEACHER Temperature - - Respiratory Rate - - Oxygen Saturation - - Inhaled Oxygen Concentration - - Weight 69.1 kg (152 lb 6.4 oz) 07/12/2012 1:53 P M TECHNOLOGY RESOURCE TEACHER Height 157.5 cm (5' 2 ) 07/12/2012 1:53 PM TECHNOLOGY RESOURCE TEACHER Body Mass Index 27.87 07/12/2012 1:53 PM TECHNOLOGY RESOURCE TEACHER Plan of Treatment Not on file Care Teams Studio Technician Video Operator Relationship Specialty Start Date End Date Zenon Thomas MD [address] [place] [phone] PCP - General 06/21/12
--- OUTSIDE RECORDS SUMMARY | 2024-06-04 10:52 | XMS_ITS ---
Author Organization [facility] Address [address] [facility] [address] [place] [address] Care Team Providers Care Hospice Music Therapy Name Role Phone Leigh Santana Unavailable [phone] Suad BOWEN, Lavonne Unavailable Unavailable Allergies Allergen (clinical drug ingredient) Drug/Non Drug Allergy documented on EMR Reaction Allergy Type Onset Date Status predniSONE Unknown Drug Allergy 11/16/2020 Activ e morphine Morphine Unknown Drug Allergy 11/16/2020 Active Substance with sulfonamide structure and antibacterial mechanism of action (substance) Sulfa Antibiotics Unknown Drug Allergy 11/16/2020 Active REASON FOR VISIT yd,f/u,cc, PCP Lavonne Borjas, JESSI, Dr. Kerr Medications Medication SIG (Take, Route, Frequency, Duration) Notes Start Date End Date Status Mucinex 600 mg take 1 tablet (600 mg) by oral route every 12 hours oral *[facility]* Active FiberCon 625 MG take 1 tablet by oral route once Oral 1 Active Aspirin Adult Low Strength 81 MG take 1 tablet (81 mg) by oral route once daily Oral 1 Active NexIUM 40 MG take 1 capsule (40 mg) by oral route once daily Oral 1 Active PROBIOTIC WITH PREBIOTIC - take 2 tablets 2 times daily oral *Reorder from [employer] for eRx and Interaction Alerts* Active Enzyme Digest take 1 capsule by oral route once Oral 1 Active esomeprazole 40 mg take orally once a day oral *Reorder from [facility] for eRx and Interaction Alerts* Active Cevimeline HCl 30 mg TAKE 1 CAPSULE BY MOUTH THREE TIMES DAILY FOR 30 DAYS Oral 01/16/2023 Active Align 4 mg take 1 capsule by oral route once Oral 1 Active Synthroid 112 MCG 1 tablet in the morning on an empty stomach Orally Once a day for 30 day(s) Active Crestor 10 MG take 1 tablet (10 mg) by oral route once daily Oral 1 Active Vital Signs Temperature 97.3 degrees Fahrenheit 04/07/20 23 Blood pressure systolic 139 mm Hg 04/07/20 23 Blood pressure diastolic 74 mm Hg 023 Heart Rate 62 /min 04/07/2023 Height 61 in 04/07/2023 Weight 131.8 lbs 04/07/2023 BMI 24.9 kg/m2 04/07/2023 Oximetry 94 % 04/07/2023 Encounters Encounter Location Date Provider Diagnosis [facility] [address] [facility] [address] [place] [address] 04/07/2023 Leigh Santana 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 ; Raynaud's disease without gangrene I73.00 and Sicca, unspecified type M35.00 Assessments Encounter Date Diagnosis (ICD Code) Assessment Notes Treatment Notes Treatment Clinical Notes Section Notes 04/07/2023 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.1) clinically stable, continue evoxac, return in 6 months 04/07/2023 Raynaud's disease without gangrene (ICD-10 - I73.00) clinically stable, continue evoxac, return in 6 months 04/07/2023 Sicca, unspecified type (ICD-10 - M35.00) clinically stable, continue evoxac, return in 6 months Plan Of Treatment Next Appt Details Follow Up: 6 Months, Reason: f/u Progress Notes * Savannah CURRYDOB: [birth year] (83 yo F)Acc No.[id number]:04/07/2023 Progress Notes Patient:?SUSANNE Savannah Neumann Provider:?LEIGH SANTANA MD :1940???Age:83 Y???Sex:Female D ate:04/07/2023 Address:[address] [place] [address] Subjective: * Chief Complaints: * ???Yd,f/u,ccPCP Lavonne hernandez, FOLEY ARTIST, Dr. Kerr * HPI: ???General Follow up:?CREST - telangiectasia, calcinosis, sclerodactyly, and Raynaud's, sicca symptoms, saw Dr. Fraser, knees ache a little, other joints are fine, no dyspnea, no dysphagia, +dry mouth, took salagen (7.5mg), did not help, on evoxac, biotene did not work, takes XyliDENT, it helps a little 11/2020, MADAY >1:1280 (centromere), 1:160 (homogeneous), SCL 70 (-), anti-DNA/chromatin/SSA/SSB/SM/SENIOR SCIENTIST (-), RF 32.6, CCP (-) 07/08/20: PFTs: air trapping, mildly decreased diffusion, used Mucinex sees tire assembler Dr. Navqi, had ECG and ECHO diagnosed with thyroid cancer, s/p surgery, to have radiation takes Nexium for acid reflux. * ROS:?General / Constitutional:?Patient denies?fevers, chills.?Patient complains of?fatigue.?Musculoskeletal:?Patient complains of?see HPI.?Skin:?Patient denies?rash.? * Medical History:? * Surgical History:?Hand surge ry; 2020-11-16C section; [id number]; [id number]; 2020-11-16 * Hospitalization/Major Diagno stic Procedure:? * Family History:?Migrated Fam yolanda History: ALZHEIMER'S , Prostate Cancer .? * Social History:?Migrated Social History:?Migrated Social History: :: 3 Children , Exercise :: Exercises regularly :: note : 06/04/2021 -Cardio 2-3 times a week at [employer], Marital Status :: , Substance Use :: Alcohol-Does not give any significant history , Substance Use :: Tobacco :: Never. * Medications:?TakingSynthroid 112 MCG Tablet 1 tablet in the morning on an empty stomach Orally Once a day Align 4 mg Capsule take 1 capsule by oral route once Oral 1 Cevimeline HCl 30 mg Capsule TAKE 1 CAPSULE BY MOUTH THREE TIMES DAILY FOR 30 DAYS Oral Crestor 10 MG Tablet take 1 tablet (10 mg) by oral route once daily Oral 1 Enzyme Digest Capsule take 1 capsule by oral route once Oral 1 esomeprazole 40 mg take orally once a day oral , Notes to Pharmacist: *Reorder from [facility] for eRx and Interaction Alerts*PROBIOTIC WITH PREBIOTIC - capsule take 2 tablets 2 times daily oral , Notes to Pharmacist: *Reorder from [facility] for eRx and Interaction Alerts*NexIUM 40 MG Capsule Delayed Release take 1 capsule (40 mg) by oral route once daily Oral 1 Aspirin Adult Low Strength 81 MG Tablet Delayed Release take 1 tablet (81 mg) by oral route once daily Oral 1 Mucinex 600 mg tablet extended release 12hr take 1 tablet (600 mg) by oral route every 12 hours oral , Notes to Pharmacist: *Pick strength-form from [facility] for eRX*FiberCon 625 MG Tablet take 1 tablet by oral route once Oral 1 Taking Synthroid 112 MCG Tablet 1 tablet in the morning on an empty stomach Orally Once a day Taking Align 4 mg Capsule take 1 capsule by oral route once Oral 1 Taking Cevimeline HCl 30 mg Capsule TAKE 1 CAPSULE BY MOUTH THREE TIMES DAILY FOR 30 DAYS Oral Taking Crestor 10 MG Tablet take 1 tablet (10 mg) by oral route once daily Oral 1 Taking Enzyme Digest Capsule take 1 capsule by oral route once Oral 1 Taking esomeprazole 40 mg take orally once a day oral , Notes to Pharmacist: *Reorder from [facility] for eRx and Interaction Alerts*Taking PROBIOTIC WITH PREBIOTIC - capsule take 2 tablets 2 times daily oral , Notes to Pharmacist: *Reorder from [facility] for eRx and Interaction Alerts*Taking NexIUM 40 MG Capsule Delayed Release take 1 capsule (40 mg) by oral route once daily Oral 1 Taking Aspirin Adult Low Strength 81 MG Tablet Delayed Release take 1 tablet (81 mg) by oral route once daily Oral 1 Taking Mucinex 600 mg tablet extended release 12hr take 1 tablet (600 mg) by oral route every 12 hours oral , Notes to Pharmacist: *Pick strength-form from [facility] for eRX*Taking FiberCon 625 MG Tablet take 1 tablet by oral route once Oral 1 DiscontinuedCalcium Citrate + D 315 mg-5 mcg (200 unit) tablet take 1 tablet by oral route once oral 1 , Notes to Pharmacist: *Pick strength-form from [facility] for eRX*Women's 50 Plus Multivitamin 400 mcg-500 mg calcium-20 mcg tablet take 1 tablet by oral route once oral 1 , Notes to Pharmacist: *Reorder from [facility] for eRx and Interaction Alerts*Magnesium Gluconate 30 mg (550 mg) TABLET take 1 tablet by oral route once ORAL 1 , Notes to Pharmacist: *Pick strength-form from [facility] for eRX*Calcium Carbonate 1250 mg take 2 tablets orally by mouth once a day oral , Notes to Pharmacist: *Pick strength-form from [facility] for eRX*Levothyroxine Sodium 88 MCG Capsule take 1 capsule (88 mcg) by oral route once daily Oral 1 Rosuvastatin Calcium 10 MG Tablet take 1 tablet (10 mg) by oral route once daily at bedtime Oral 1 Fexofenadine HCl 180 MG Tablet take 1 tablet (180 mg) by oral route once daily Oral 1 Rocaltrol 0.5 mcg Capsule take 2 capsules (1 mcg) by oral route once daily Oral 1 Medication List reviewed and reconciled with the patientDiscontinued Calcium Citrate + D 315 mg-5 mcg (200 unit) tablet take 1 tablet by oral route once oral 1 , Notes to Pharmacist: *Pick strength-form from [facility] for eRX*Discontinued Women's 50 Plus Multivitamin 400 mcg-500 mg calcium-20 mcg tablet take 1 tablet by oral route once oral 1 , Notes to Pharmacist: *Reorder from [facility] for eRx and Interaction Alerts*Discontinued Magnesium Gluconate 30 mg (550 mg) TABLET take 1 tablet by oral route once ORAL 1 , Notes to Pharmacist: *Pick strength-form from [facility] for eRX*Discontinued Calcium Carbonate 1250 mg take 2 tablets orally by mouth once a day oral , Notes to Pharmacist: *Pick strength-form from [facility] for eRX*Discontinued Levothyroxine Sodium 88 MCG Capsule take 1 capsule (88 mcg) by oral route once daily Oral 1 Discontinued Rosuvastatin Calcium 10 MG Tablet take 1 tablet (10 mg) by oral route once daily at bedtime Oral 1 Discontinued Fexofenadine HCl 180 MG Tablet take 1 tablet (180 mg) by oral route once daily Oral 1 Discontinued Rocaltrol 0.5 mcg Capsule take 2 capsules (1 mcg) by oral route once daily Oral 1 Medication List reviewed and reconciled with the patient * Allergies:?predniSONE: Aller gy - Onset Date 11/16/2020Morphine: Allergy - Onset Date 11/16/2020ulfa Antibiotics: Allergy - Onset Date 11/16/2020no[Allergies Verified] Objective: * Vitals:?BP:139/74mm Hg, HR:6 2/min, Temp:97.3F, Oxygen sat %:94%, Wt:131.8lbs, Ht:61in, BMI:24.90Index. * Examination: ???General Examination: ?General appearance:?alert, well-nourished and in no acute distress.?Head:?normocephalic, atraumatic.?Eyes:?normal.?Skin:?sclerodactyly, +telangiectasia on fingers.?Lungs:?respiratory effort normal.?Neurology: ?Speech:?normal.?Psychiatry: ?Affect / mood:?appropriate.?Rheumatology: ???fingers a little puffy diffusely, nontender. Assessment: * Assessment: 1.?CREST syndrome - M34.1 (P rimary)?2.?Raynaud's disease without gangrene - I73.00?3.?Sicca, unspecified type - M35.00? clinically stable, continue evoxac, return in 6 months. Plan: * Treatment: * Procedure Codes:? * Follow Up:?6 Months (Reason: f/u) * Billing Information: * Visit Code:? 05246 Office Visit, Est Pt., Level 4. * Procedure Codes:? * GN ENGINEER PRODUCTS Sign off status: Completed true * Provider:?LEIGH SANTANA MD Date:?04/07/2023 Generated for Rick escalante/Ricardo/Ramses on:?06/04/2024 10:52 AM DESIGN ENGINEER PRODUCTS History and Physical Notes * HPI (History of Present Illness) Category Sub-Category Detail Notes Category Not es General Follow up CREST - telangiectasia, calcinosis, sclerodactyly, and Raynaud's, sicca symptoms, saw Dr. Fraser, knees ache a little, other joints are fine, no dyspnea, no dysphagia, +dry mouth, took salagen (7.5mg), did not help, on evoxac, biotene did not work, takes XyliDENT, it helps a little 11/2020, MADAY >1:1280 (centromere), 1:160 (homogeneous), SCL 70 (-), anti-DNA/chromatin/SSA/SSB/SM/RN P (-), RF 32.6, CCP (-) 07/08/20: PFTs: air trapping, mildly decreased diffusion, used Mucinex sees tire assembler Dr. Naqvi, had ECG and ECHO diagnosed with thyroid cancer, s/p surgery, to have radiation takes Nexium for acid reflux Examination Category Sub-Category Detail Notes Category Not es Rheumatology fingers a little puffy diffusely, nontender Neurology Speech: normal Psychiatry Affect / mood: appropriate General Examination General appearance: alert, w ell-nourished and in no acute distress Head: normocephalic, atrau matic Eyes: normal Lungs: respiratory effort n ormal Skin: sclerodactyly, +nessa ngiectasia on fingers
--- OUTSIDE RECORDS SUMMARY | 2024-06-04 10:52 | XMS_ITS | Clinical Summary ---
Author Organization [facility] Categorical Address [address] [place] [address] Care Team Providers Care Care Mgr Name Role Phone Zenon Thomas MD Primary Care Provider [phone] Source Comments [facility] and [facility] Practices is amultiple site organization consisting of ambulatory clinics and hospital sitesin [place], [place], [place] and [place]. This disclosure is being madepursuant to the Care Everywhere program and may not contain all information available regarding this patient. Last updated 18.[facility] Allergies Active Allergy Reactions Criticality Noted Date [...] CHLORIDE) 0.65 % nasal sprayIndications:All ergic rhinitis Shoshone 1 Shoshone into each nostril as needed for Dry [...] Comments Blood Pressure 114/80 07/12/2012 1:53 PM [facility] Pulse 72 07/12/2012 1:53 PM [facility] Temperature - - Respiratory Rate - - Oxygen Saturation - - Inhaled Oxygen Concentration - - Weight 69.1 kg (152 lb 6.4 oz) 07/12/2012 1:53 P M [facility] Height 157.5 cm (5' 2 ) 07/12/2012 1:53 PM [facility] Body Mass Index 27.87 07/12/2012 1:53 PM [facility] Plan of Treatment Health Maintenance Due Date Last Done Comments BONE DENSITY TESTING 1942 DTAP/TDAP/TD VACCINES (1 - Tdap) 1961 PNEUMOCOCCAL VACCINE 50+ (1 of 1 - PCV) 02/14/1992 ZOSTER VACCINE (1 of 2) 02/14/1992 Respiratory Syncytial Virus (RSV) Vaccine Pt: or over 60 yrs (1 - 1-dose 75+ series) 2017 COVID-19 VACCINE ( - 2023-2 5 season) 2024 INFLUENZA VACCINE (#1) 2024 DEPRESSION SCREENING 05/08/2024 HEPATITIS B VACCINE Aged Out No longe r eligible based on patient's age to complete this topic HIB VACCINE Aged Out No longer eligi ble based on patient's age to complete this topic HPV VACCINE Aged Out No longer eligi ble based on patient's age to complete this topic MENINGOCOCCAL (Group B) VACCINE Aged Out No longer eligible based on patient's age to complete this topic MENINGOCOCCAL VACCINE Aged Out No maggy gayatri eligible based on patient's age to complete this topic Care Teams Care Mgr Relationship Specialty Start Date End Date Zenon Thomas MD [address] [place] [id number] PCP - General 06/21/12
--- OUTSIDE RECORDS SUMMARY | 2024-06-04 10:52 | XMS_ITS | Clinical Summary ---
Author Organization [facility] Physician Office Building [address] [place] [id number] Care Team Providers Care Route Returner Name Role Phone Mohan Kerr MD Primary Care Provider [phone] Behzad Fagan MD Unavailable Tamiko Teran MD Unavailable [phone] Allergies Active Allergy Reactions Criticality Noted Date [...] BY MOUTH THREE TIMES DAILY 42 capsule 01/04/20 24 025 Discontinued dilTIAZem CD/XR/XT (CARDIZEM [...] 05/28/2024 Assessment & Plan (05/28/2024 2:15 PM SURG TECH): - Noted by family - Score low on cognitive exam by OT - Outpatient referral to Neurology- memory clinic Acute traumatic pain 05/27/2024 Assessment & Plan (05/27/2024 12:16 PM SURG TECH): - Tylenol 650mg q6h - Robaxin 750mg TID - Oxycodone 2.5mg q4h PRN Acute blood loss anemia 05/27/2024 Assessment & Plan (05/30/2024 11:52 AM SURG TECH): - Hgb (05/26): 12.3g/dL - Hgb (05/27): 11.5g/dL - Hgb (05/28) 11.2 UTI (urinary tract infection) 05/26/2024 Assessment & Plan (05/28/2024 2:14 PM SURG TECH): # UTI - Urine culture (05/25): Escherichia coli - 3d ceftriaxone (susceptible), started in ED- completed Discharge planning issues 05/26/2024 Assessment & Plan (05/30/2024 11:51 AM SURG TECH): 05/26: PT/OT to be ordered after patient comes back from OR today 05/27: awaiting PT/OT 05/28: Weaning O2. Awaiting OT eval. 05/29-05/30 Patient is medically stable for discharge, SW/CM updated. Discharge pending facility bed availability Discharged 05/30 Closed displaced fracture of right femoral neck 05/25/2024 Assessment & Plan (05/27/2024 11:39 AM SURG TECH): - Orthopedic consult - Abx: periop Ancef [...] 06/21/2023 Assessment & Plan (06/21/2023 11:11 AM SURG TECH): I, Ailyn Moreno NP have personally reviewed pertinent inpatient and/or ED records, including discharge medications and [employer] if applicable. This patient's discharge medication list has been reviewed and reconciled with her outpatient medication list and has also been reviewed with patient and/or caregiver. I have noted any changes. Atrial fibrillation ([facility]) 06/21/2023 Assessment & Plan (05/27/2024 12:21 PM SURG TECH): - Hold Eliquis - Continue Diltiazem 120mg [...] bruising. Assessment & Plan (06/27/2023 2:30 PM SURG TECH): The patient had an episode of paroxysmal atrial fibrillation. She now is in sinus rhythm on diltiazem and Eliquis. I recommend no changes at this time Assessment & Plan (06/21/2023 11:13 AM SURG TECH): Clinically sinus rhythm today and rate controlled. Reviewed diltiazem and Eliquis and the risks and rationale of these medications. Reviewed other options such as warfarin which would require routine monitoring. Reviewed risks of blood clots/ bleeding. She states understanding. She is agreeable to starting Eliquis. She will also warp picker the diltiazem from the pharmacy. She will follow-up with Dr. Naqvi as scheduled. We reviewed red flags which would warrant return to ED. She and her are in agreement with plan and states understanding. Vaginal venereal warts 04/13/2023 Assessment & Plan (04/13/2023 11:33 AM SURG TECH): Declines exam today. Will place referral to crossing guard for further evaluation and treatment. Fatigue 04/13/2023 Assessment & Plan (04/13/2023 11:34 AM SURG TECH): Vague reports of fatigue. She has thyroid labs ordered by Oncology. Will add CBC. Reviewed lifestyle recommendations. No other focal findings. Will monitor response. Cognitive and behavioral changes 03/06/2023 Assessment & Plan (04/13/2023 11:33 AM SURG TECH): A&O x3. Good conversation. Continue following with [...] . Assessment & Plan (06/21/2023 11:11 AM SURG TECH): Stable. Continue Synthroid. Will continue to monitor. Assessment & Plan (04/13/2023 11:34 AM SURG TECH): Status post thyroidectomy. Continue following with multiple [...] (08/17/2022): Added automatically from request for surgery [id number] Assessment & Plan (01/17/2023 10:34 PM CDT): [...] exercise. Assessment & Plan (07/13/2022 9:48 PM SURG TECH): Previously treated with alendronate. She is a good candidate for denosumab. She will discuss with primary MD. Will check PTH rule out Normocalcemic hyperparathyroidism. Continue calcium and vitamin-D Weight-bearing exercises as tolerated Fall precautions.. Excessive sweating 07/13/2022 Assessment & Plan (07/13/2022 9:53 PM SURG TECH): 82 years old female with history of [...] products. I reviewed her most recent colonoscopy (2018) that did not reveal any neoplasm. Lactaid tablets p.r.n.. Regular check-up 12/31/2021 Hyperlipidemia 07/05/2019 Assessment & Plan (01/12/2024 1:34 PM CDT): Stable; continue present management with rosuvastatin 10 mg daily. Assessment & Plan (01/01/2024 4:34 PM CDT): Continue Crestor. Assessment & Plan (07/21/2023 9:32 PM CDT): Lab Results Component Value Date LDLCALC 102 12/28/2022 Stable Continue rosuvastatin. Assessment & Plan (06/27/2023 2:30 PM SURG TECH): Continue Crestor. Assessment & Plan (01/17/2023 10:34 PM CDT): Lipids well controlled. Continue rosuvastatin Low cholesterol diet. Assessment & Plan (12/30/2022 1:31 PM CDT): Lipids are acceptable. Continue Crestor 10 mg daily. Assessment & Plan (11/25/2022 9:30 AM CDT): Reviewed lipid panel with patient, continue crestor 10 mg daily. Assessment & Plan (07/13/2022 9:55 PM SURG TECH): Lab Results Component Value Date LDLCALC 103 06/23/2022 Continue rosuvastatin Low cholesterol diet Assessment & Plan (12/31/2021 1:36 PM CDT): Continue crestor at current dose. Assessment & Plan (01/01/2021 3:23 PM CDT): Continue Crestor RTC 1 year Check Lipids in about 6 months. Assessment & Plan (07/03/2020 1:51 PM SURG TECH): Check lipid profile today. Assessment & Plan (07/05/2019 10:10 AM SURG TECH): Continue Crestor. Check both lipid and hepatic [...] change. Assessment & Plan (07/03/2020 1:50 PM SURG TECH): Stable ECG unchanged in 4 years. Carpal tunnel syndrome 03/27/2009 Allergic rhinitis 02/10/2009 Benign essential hypertension 02/10/2009 Assessment & Plan (05/27/2024 1:03 PM SURG TECH): - Continue Diltiazem XT 120mg daily Palpitations 01/30/2009 Resolved Problems Problem Noted Date Diagnosed Date Resolved Date Goiter diffuse 07/13/2022 01/17/2023 Assessment & Plan (07/13/2022 9:54 PM SURG TECH): Nodular right thyroid lobe on exam. Thyroid ultrasound for further evaluation Encounters Date Type Department Care Team Description 05/27/2024 Treatment [facility] [address] [place] [address] Carol Ann De León MD 05/27/2024 Orders Only [facility] Orthopaedic Surgery [address] 6th [place] [address] [place] [address] Ruth Hand MD Closed displaced fracture of right femoral neck (HCC) (Primary Dx) 05/26/2024 1:15 PM SURG TECH - 05/26/2024 3:50 PM SURG TECH Surgery [facility] Operating Room [address] [place] [address] Russell Justin MD PhD PINNING PERCUTANEOUS - HI 05/26/2024 11:59 AM SURG TECH Anesthesia Event [facility] Operating Room [address] [place] [address] Jake Mitchell MD PhD 05/25/2024 3:32 PM SURG TECH - 05/30/2024 3:41 PM SURG TECH Hospital Encounter [address] [address] Arpan Norman MD PhD Gianluca Garcia MD Kranker, Lindsay Morgan, MD Closed displaced fracture of right femoral neck (HCC) (Primary Dx); Atrial fibrillation and flutter (HCC) Discharge Disposition: Discharge to SNF 05/25/2024 2:56 PM SURG TECH - 05/25/2024 11:59 PM SURG TECH Hospital Encounter [facility] Discharge Disposition: Discharge to home or self care 05/25/2024 11:50 AM SURG TECH - 05/25/2024 2:51 PM SURG TECH Emergency [facility] Emergency Department [address] [place] [address] Kulwinder Johnston MD Closed fracture of right hip, initial encounter (HCC) (Primary Dx) Discharge Disposition: Discharge to not defined facility 05/21/2024 Telephone [facility] Stroke [address] [place] [id number] Russell Pacheco MD 04/29/2024 Telephone [facility] [address] [address] Mohan Kerr MD 04/09/2024 2:58 PM SURG TECH - 04/09/2024 11:59 PM SURG TECH Hospital Encounter [facility] [address] [place] [address] A, [address] [place] [address] Amy Wheatley NP Myalgia, other site (Primary Dx); Greater trochanteric bursitis of right hip Discharge Disposition: Discharge to home or self care 03/12/2024 1:18 PM SURG TECH - 03/12/2024 11:59 PM SURG TECH Hospital Encounter [facility] [address] [place] [address], 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 THYROIDECTOMY 09/05/2022 - 10/05/2022 POLYPECTOMY Medical History Medical History Date Comments Osteoarthritis Raynaud's disease GERD (gastroesophageal reflux disease) Hyperlipidemia Scleroderma, localized Lactose intolerance PONV (postoperative nausea and vomiting) Thyroid cancer (HCC) s/p resecti on Osteoporosis osteopenia Autoimmune disease (CMS/HCC) (HCC) Atrial fibrillation (CMS/HCC) (HCC) Stroke (HCC) Pneumonia Cataract Colon polyp Family History Medical History Relation Name Comments Cancer Father Heart attack Father Heart disease Father Diabetes Maternal Grandfather Mistake Alzheimer's disease Mother at age 80, Onset in early to mid 70's Colon polyps Mother Alcohol abuse Mother's Brother Alcohol abuse Mother's Sister 1 Depression Mother's Sister 2 -Tawana Diabetes Mother's Sister 3 - Colleen Prostate cancer Other 1 Family histo ry of Cancer, prostate; Heart disease Other 2 Family history of Heart disease; Osteoarthritis Other 3 Family histor y of Osteoarthritis; Relation Name Status Comments Father Maternal Grandfather Mistake Mother Mother's Brother Mother's Sister 1 Mother's Sister 2 -Tawana Mother's Sister 3 - Colleen Other 1 Other 2 Other 3 Social History Tobacco Use Types Packs/Day Years [...] on file Legal Sex Female 11:55 PM SURG TECH Gender Identity Female 06/28/2019 7:58 AM SURG TECH Sexual Orientation Straight 06/28/2019 7: 59 AM SURG TECH Obstetrics History Last Filed Vital Signs Vital Sign Reading Time Taken Comments Blood Pressure 109/62 05/30/2024 11:21 AM SURG TECH Pulse 90 05/30/2024 11:21 AM SURG TECH Temperature 36.9 ??C (98.4 ??F) 05/30/2024 11:[address] Respiratory Rate 18 05/30/2024 11:21 AM SURG TECH Oxygen Saturation 93% 05/30/2024 1:14 PM SURG TECH Inhaled Oxygen Concentration - - Weight 50.8 kg (112 lb) 05/25/2024 11:51 PM SURG TECH Height 157.5 cm (5' 2.01 ) 05/25/2024 11:[address] Body Mass Index 20.48 05/25/2024 11:51 PM SURG TECH Plan of Treatment Health Maintenance Due Date Last Done Comments Hepatitis B Screening 02/14/1958 Covid-19 Vaccine (2 - 2023-2 5 season) 2024 05/20/2020 Influenza Vaccine (#1) 2024 , 02/05/2022, 03/05/2019, Additional history exists Osteoporosis Screening-Bone Density Scan 06/23/2024 06/23/2022, 09/26/2018 Well Visit 65+ 11/26/2024 11/27/2023 Depression Screening 02/20/2025 02/21/2024, 02/21/2024, 11/27/2023, Additional history exists Fall Risk Assessment 05/30/2025 05/30/2024, 11/27/2023, 06/21/2023, Additional history exists DTaP/Tdap/Td Vaccine (4 - Td or Tdap) 03/22/2029 03/22/2019, 06/23/2015, 06/19/2015 Pneumococcal vaccine 65+ Completed 016, 02/09/2016, 02/10/2009 Zoster Vaccine Completed 04/22/2019, 02/05, 02/19/2019, Additional history exists Medical Devices Implanted Type Area Plan Examiner Device Identifier Shelf Expiration Date Model / Serial / Lot Synthes 7.3mm 8.2mm 2.9mm 80mm Cannulated Self Tap Self Drill 209.680 - S0 - [id number] Implanted:Qty: 3 on 05/26/2024 by Russell Justin MD PhD at [facility] Screw Right: Hip Synthes 209.680 / 0 / 0 Synthes 13mm Washer Orthopedic Stainless Steel Nonsterile 6.5/7/7.3mm 219.99 - S0 - [id number] Implanted:Qty: 3 on 05/26/2024 by Russell Justin MD PhD at [facility] Washer Right: Hip Synthes 219.99 / 0 / 0 [employer] Sls-Clip Ligate Triangular Wire Sabrina Groove Small [employer] Clip Latex Free M0827-7 - [id number] Implanted:Qty: 2 on 08/25/2022 by Tamiko Teran MD at [facility] N/A: Neck [employer] [id number] 02/04/2027 [id number] / / [id number] Procedures Procedure Name Priority Date/Time Associated Diagnosis Comments EGFR Routine 05/27/2024 8:29 PM SURG TECH PHOSPHORUS Routine 05/27/2024 8:29 PM SURG TECH MAGNESIUM Routine 05/27/2024 8:29 PM SURG TECH BASIC METABOLIC PANEL Routine 05/27/2024 8:29 PM SURG TECH CBC WITHOUT DIFFERENTIAL Routine 05/27/2024 8:29 PM SURG TECH EGFR Routine 05/26/2024 10:39 PM SURG TECH PHOSPHORUS Routine 05/26/2024 10:39 PM SURG TECH MAGNESIUM Routine 05/26/2024 10:39 PM SURG TECH BASIC METABOLIC PANEL Routine 05/26/2024 10:39 PM SURG TECH CBC WITHOUT DIFFERENTIAL Routine 05/26/2024 10:39 PM SURG TECH XR SHOULDER RIGHT 2 OR MORE VIEWS ED Urgent/IP Urgent 05/26/2024 9:10 PM SURG TECH FL FLUOROSCOPY < 1 HOUR IP Routine 05/26/2024 1:00 PM SURG TECH OR AN PROCEDURE PLACEHOLDER Routine 05/26/2024 12:40 PM SURG TECH OR AN PROCEDURE PLACEHOLDER Routine 05/26/2024 12:39 PM SURG TECH OR AN ELECTIVE ENDOTRACHEAL AIRWAY Routine 05/26/2024 12:39 PM SURG TECH PINNING PERCUTANEOUS - HIP 05/26/2024 12:01 PM SURG TECH Closed displaced fracture of right femoral neck (HCC) PREPARE RBC Timed 05/26/2024 3:07 AM SURG TECH TROPONIN I HIGH-SENSITIVITY 4-HOUR Timed 05/25/2024 9:35 PM SURG TECH POCUS GUIDED NEEDLE PLACEMENT 05/25/2024 9:33 PM SURG TECH URINALYSIS, MICROSCOPIC ONLY STAT 05/25/2024 7:26 PM SURG TECH URINE CULTURE STAT 05/25/2024 7:26 PM SURG TECH URINALYSIS AND REFLEX TO MICROSCOPIC AND CULTURE STAT 05/25/2024 7:26 PM SURG TECH TROPONIN I HIGH-SENSITIVITY 2-HOUR Timed 05/25/2024 7:21 PM SURG TECH OR INJECTION AA&/STRD OTHER PERIPHERAL NERVE/BRANCH Routine 05/25/2024 6:[address] PELVIS WO CONTRAST ED 05/25/2024 5:[address] HEAD AND CERVICAL SPINE WO CONTRAST ED 05/25/2024 5:47 PM SURG TECH ECG 12-LEAD Routine 05/25/2024 5:31 PM SURG TECH TROPONIN I HIGH-SENSITIVITY SERIES (BASELINE, 2HR, 4HR, 6HR) STAT 05/25/2024 5:22 PM SURG TECH ANTIBODY IDENTIFICATION STAT 05/25/2024 5:21 PM SURG TECH XR KNEE RIGHT 1 OR 2 VIEWS ED 05/25/2024 5:18 PM SURG TECH XR FEMUR RIGHT 2 OR MORE VIEWS ED 05/25/2024 5:17 PM SURG TECH XR CHEST 1 VIEW ED 05/25/2024 5:17 PM SURG TECH B CHECK SAMPLE STAT 05/25/2024 4:38 PM SURG TECH EGFR STAT 05/25/2024 4:26 PM SURG TECH DIFFERENTIAL AUTO STAT 05/25/2024 4:2 6 PM SURG TECH HEPARIN ANTI FACTOR XA ACTIVITY STAT 05/25/2024 4:26 PM SURG TECH BASIC METABOLIC PANEL STAT 05/25/2024 4:26 PM SURG TECH CBC WITH AUTO DIFFERENTIAL STAT 05/25/2024 4:26 PM SURG TECH APTT STAT 05/25/2024 4:26 PM SURG TECH PROTIME-INR STAT 05/25/2024 4:26 PM SURG TECH TYPE AND SCREEN STAT 05/25/2024 4:26 PM SURG TECH ECG 12-LEAD Routine 05/25/2024 1:58 PM SURG TECH XR HIP RIGHT W PELVIS 2 OR 3 VIEWS ED 05/25/2024 12:46 PM SURG TECH EGFR STAT 05/25/2024 12:32 PM SURG TECH DIFFERENTIAL AUTO STAT 05/25/2024 12: 32 PM SURG TECH COMPREHENSIVE METABOLIC PANEL STAT 05/25/2024 12:32 PM SURG TECH CBC WITH AUTO DIFFERENTIAL STAT 05/25/2024 12:32 PM SURG TECH PAIN MGMT IMAGING ULTRASOUND TRIGGER POINT INJ 3+ MUSCLE GROUP Schedule Routine, Read Routine (OP Routine) 03/12/2024 1:18 PM SURG TECH Myalgia, other site DEXA AXIAL SKELETON BONE DENSITY 1 OR MORE SITES Schedule Routine, Read Routine (OP Routine) 06/23/2022 12:15 PM SURG TECH Asymptomatic menopausal state from Last 3 Months or Most Recently Relevant to Health Maintenance Results * eGFR (05/27/2024 8:29 PM SURG TECH) eGFR 88 >=60 mL/min/1. 73 m2 Comment: [...] last reviewed 2021. Blood 05/27/2024 8:29 PM SURG TECH 05/27/2024 9:28 PM SURG TECH Nicole Borrego MD LAB BLOOD ORDERABLES F inal Result Performing Organization Address City/[facility]/ZIP Co de Phone Number [facility] Department [place] [address] * (ABNORMAL) CBC without differential (05/27/2024 8:29 PM SURG TECH) Pathologist [facility] [place] WBC 9.1 3.8 - 9.9 K/cumm Hgb 11.2(L) 11.9 - 15.5 g/dL [facility] Hct 34.0(L) 35.6 - 45.5 % [facility] Plt 179 150 - 400 K/cumm [facility] MPV 11.0 9.1 - 12.3 fL [facility] RBC 3.58(L) 3.90 - 5.20 M/cumm [facility] MCV 95.0 81.3 - 96.4 fL [facility] MCH 31.3 27.1 - 33.3 pg [facility] MCHC 32.9 32.3 - 35.7 g/dL [facility] RDW CV 15.6(H) 11.1 - 14.9 % [facility] RDW SD 55.1(H) 35.7 - 48.1 fL [facility] NRBC abs 0.00 0.00 - 0.01 K/cumm [facility] Blood 05/27/2024 8:29 PM SURG TECH 05/27/2024 9:38 PM SURG TECH Nicole Borrego MD LAB BLOOD ORDERABLES F inal Result Performing Organization Address City/[facility]/ZIP Co de Phone Number [facility] [place] [address] * Phosphorus (05/27/2024 8:29 PM SURG TECH) [facility] Phosphorus, pl 2.8 2.3 - 4.5 mg/dL Blood 05/27/2024 8:29 PM SURG TECH 05/27/2024 9:28 PM SURG TECH Nicole Borrego MD LAB BLOOD ORDERABLES F inal Result Performing Organization Address City/[facility] Co de Phone Number [facility] [place] [address] * Magnesium (05/27/2024 8:29 PM SURG TECH) [facility] Magnesium 1.8 1.4 - 2.5 mg/dL Blood 05/27/2024 8:29 PM SURG TECH 05/27/2024 9:28 PM SURG TECH Result [facility] Nicole Borrego MD LAB BLOOD ORDERABLES F inal Result Performing Organization Address [facility] [place] [address] * (ABNORMAL) Basic metabolic panel (05/27/2024 8:29 PM SURG TECH) [facility] Sodium 140 135 - 145 mmol/L Potassium, pl 3.9 3.3 - 4.9 mmol/L [facility] Chloride 103 97 - 110 mmol/L [facility] CO2 27 22 - 32 mmol/L [facility] Anion gap 10 2 - 15 mmol/L [facility] BUN 10 6 - 25 mg/dL [facility] Creatinine 0.64 0.60 - 1.10 mg/dL [facility] Glucose 110 70 - 199 mg/dL [facility] Comment: Interpretive Data Fasting glucose >/= 126 [...] classification and Diagnosis of Diabetes Diabetes Care 202; 46: S19-S40. Current interpretive data was last revised 2022. Calcium 8.2(L) 8.5 - 10.3 mg/dL [facility] Blood 05/27/2024 8:29 PM SURG TECH 05/27/2024 9:28 PM SURG TECH us Nicole Borrego MD LAB BLOOD ORDERABLES F inal Result [facility] Department [place] [address] * eGFR (05/26/2024 10:39 PM SURG TECH) eGFR 85 >=60 mL/min/1. 73 m2 Comment: [...] reviewed 2021. Blood 05/26/2024 10:3 9 PM SURG TECH 05/26/2024 11:50 PM SURG TECH Nicole Borrego MD LAB BLOOD ORDERABLES F inal Result Performing Organization Address City/[facility]/ZIP Co de Phone Number [facility] [place] [address] * (ABNORMAL) CBC without differential (05/26/2024 10:39 PM SURG TECH) WBC 8.7 3.8 - 9.9 K/cumm Hgb 11.5(L) 11.9 - 15.5 g/dL [facility] Hct 36.2 35.6 - 45.5 % [facility] Plt 170 150 - 400 K/cumm [facility] MPV 11.0 9.1 - 12.3 fL [facility] RBC 3.74(L) 3.90 - 5.20 M/cumm [facility] MCV 96.8(H) 81.3 - 96.4 fL [facility] MCH 30.7 27.1 - 33.3 pg [facility] MCHC 31.8(L) 32.3 - 35.7 g/dL [facility] RDW CV 15.8(H) 11.1 - 14.9 % [facility] RDW SD 56.0(H) 35.7 - 48.1 fL [facility] NRBC abs 0.00 0.00 - 0.01 K/cumm [facility] Blood 05/26/2024 10:3 9 PM SURG TECH 05/26/2024 11:52 PM SURG TECH Nicole Borrego MD LAB BLOOD ORDERABLES F inal Result [facility] [place] [place] [address] * Phosphorus (05/26/2024 10:39 PM SURG TECH) [facility] Phosphorus, pl 4.3 2.3 - 4.5 mg/dL Blood 05/26/2024 10:3 9 PM SURG TECH 05/26/2024 11:50 PM SURG TECH Nicole Borrego MD LAB BLOOD ORDERABLES F inal Result Performing Organization Address [facility] de Phone Number [facility] [place] [address] * Magnesium (05/26/2024 10:39 PM SURG TECH) [facility] Magnesium 1.8 1.4 - 2.5 mg/dL Blood 05/26/2024 10:3 9 PM SURG TECH 05/26/2024 11:50 PM SURG TECH Nicole Borrego MD LAB BLOOD ORDERABLES F inal Result Performing Organization Address [facility] de Phone Number [facility] [place] [address] * (ABNORMAL) Basic metabolic panel (05/26/2024 10:39 PM SURG TECH) [facility] Sodium 144 135 - 145 mmol/L Potassium, pl 3.7 3.3 - 4.9 mmol/L [facility] Chloride 108 97 - 110 mmol/L [facility] CO2 25 22 - 32 mmol/L [facility] Anion gap 11 2 - 15 mmol/L [facility] BUN 10 6 - 25 mg/dL [facility] Creatinine 0.71 0.60 - 1.10 mg/dL [facility] Glucose 113 70 - 199 mg/dL [facility] Comment: Interpretive Data Fasting glucose >/= 126 [...] 2022. Calcium 8.4(L) 8.5 - 10.3 mg/dL [facility] Blood 05/26/2024 10:3 9 PM SURG TECH 05/26/2024 11:50 PM SURG TECH us Nicole Borrego MD LAB BLOOD ORDERABLES F inal Result [facility] Department [place] [address] * XR Shoulder Right 2 or More Views (05/26/2024 9:10 PM SURG TECH) Anatomical Region Laterality Modality Upper Extremities, Shoulder Right Comp uted Radiography 05/27/2024 6:08 AM SURG TECH Impressions 05/27/2024 6:08 AM SURG TECH 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 Electronically signed by: Johny Shaffer M.D. Narrative 05/27/2024 6:08 AM SURG TECH XR SHOULDER RIGHT 2 OR MORE VIEWS [...] Fluoroscopy < 1 Hour (05/26/2024 1:00 PM SURG TECH) Narrative [facility] - 05/26/2024 1:01 PM SURG TECH The images from this study are not interpreted by Radiology. ??Please refer to the physician's procedure / OR operative note. Russell Justin MD PhD IMG FLUOROSCOPY PROC EDURES Final Result [facility] * OR AN PROCEDURE PLACEHOLDER (05/26/2024 12:40 PM SURG TECH) Narrative Mansoor Daily CRNA - 05/26/2024 12:40 PM SURG TECH Mansoor Daily CRNA ? 05/26/2024 12:40 PM Peripheral IV Catheter Patient location: OR Staff: Placed by: SCREENING NURSE: Mansoor Daily CRNA Preprocedure prep: Prep solution: chlorhexadine PPE: gloves and provider hat/mask PIV line: Laterality: left Site: wrist Catheter size: 20 g Technique: palpatation Procedure details: occlusive dressing applied and good blood return Number of attempts: 1 Assessment: Events: patient tolerated procedure well with no complications Jake Mitchell MD PhD ANESTHESIA ORDERABLES Final Result * OR AN ELECTIVE ENDOTRACHEAL AIRWAY, OR AN PROCEDURE PLACEHOLDER (05/26/2024 12:39 PM SURG TECH) Narrative Mansoor Daily CRNA - 05/26/2024 12:39 PM SURG TECH Mansoor Daily CRNA ? 05/26/2024 12:39 PM Airway Patient location: OR Urgency: elective Indications for airway management: anesthesia Difficult airway: no Staff: Supervising provider: Jake Mitchell MD PhD Placed by: SCREENING NURSE: Mansoor Daily CRNA Emergent airway documentation: Risks [...] Prepare RBC: 2 Units (05/26/2024 3:07 AM SURG TECH) [facility] Product code [id number] Unit Number [id number] [facility] Product Blood Type ONEG [facility] Dispense Status RETURNED [facility] Product code [id number] [facility] Unit Number [id number] [id number] [facility] Product Blood Type ONEG [facility] Dispense Status RETURNED [facility] Blood 05/26/2024 3:07 AM SURG TECH 05/26/2024 3:06 AM SURG TECH Narrative [facility] - 05/29/2024 12:05 AM SURG TECH Are special requirements needed? (All products are leukoreduced and CMV- safe)- >No Date required:-[id number] LRRBC # of [id number] Reasons:-Intra-op transfusion} us Nicole Borrego MD BLOOD BANK PRODUCT ORD ERABLES Final Result [facility] Department [place] [address] * Troponin I high-sensitivity 4-hour (05/25/2024 9:35 PM SURG TECH) Pathologist [facility] [place] Trop I hs <4 <=17 ng/L Comment: Interpretive Data For further hscTnI resources including the diagnostic algorithm and an aid in interpretation, copy and paste this link: https://bjhlab.testcatalog.org/show/hsTrop-1 Current Interpretive Data last revised 2019. Trop I hs delta 0 ng/L [facility] Trop I hs interp Insignificant [facility] Blood 05/25/2024 9:35 PM SURG TECH 05/25/2024 10:25 PM SURG TECH us Lesia Lisa MD LAB BLOOD ORDERABLES Fin al Result [facility] [place] [address] * POCUS GUIDED NEEDLE PLACEMENT (05/25/2024 9:33 PM SURG TECH) Anatomical Region Laterality Modality Other 05/25/2024 6:10 PM SURG TECH Narrative 05/25/2024 10:25 PM SURG TECH Performed by: Gianluca Garcia Procedural guidance: ?Exam Information: ?Exam type: ??Diagnostic ?Procedure type: ??Nerve block ?See procedure note in [facility] Electronically signed by Gianluca Garcia on Saturday, May 25, 2024 at 10:25 PM I have reviewed the images & the resident's interpretation. I agree with the findings. Procedure Note Gianluca Garcia MD - 05/25/2024 Performed by: Gianluca Garcia Procedural guidance: Exam Information: Exam type: Diagnostic Procedure type: Nerve block See procedure note in [facility] Electronically signed by Gianluca Garcia on Saturday, May 25, 2024 at10:25 PM I have reviewed the images & the resident's interpretation. I agree withthe findings. us Gianluca Garcia MD POCUS ORDERABLES Final Res ult * (ABNORMAL) Urinalysis reflex to microscopic and culture Urine, bladder (05/25/2024 7:26 PM SURG TECH) Color, ur Yellow Yellow Clarity, ur Cloudy(A) Clear [facility] Specific gravity, ur 1.013 1.003 - 1.030 [facility] pH, urine 7.0 [facility] Comment: Interpretive Data ? Urine pH is affected by diet, medications, systemic acid-base disturbances, and renal tubular function. ??pH may affect urinary stone formation. ??For example, urine pH below 6.0 may help reduce the tendency for calcium phosphate stones and pH greater than 6.0 may reduce the tendency for uric acid stone formation. Source: [facility] Current Interpretive Data was last revised on 2017 Protein, ur ql Trace Negative [facility] Glucose, ur ql Negative Negative [facility] Ketones, ur Negative Negative [facility] Bilirubin, ur Negative Negative [facility] Blood, ur Negative Negative [facility] Urobilinogen, ur <2.0 <2.0 mg/dL [facility] Nitrite, ur Positive(A) Negative [facility] Leukocyte esterase, ur 3+(A) Negative [facility] UA reflex comment Reflex to microscopic UA will be performed. [facility] Urine, bladder 05/25/2024 7: 26 PM SURG TECH 05/25/2024 7:36 PM SURG TECH Trinh Peacock MD LAB MICROBIOLOGY - GENERA L ORDERABLES Final Result [facility] [place] [address] * (ABNORMAL) Urinalysis, microscopic only (05/25/2024 7:26 PM SURG TECH) WBC, ur >50(A) 0 - 5 /HPF RBC, ur 3-5(A) 0 - 2 /HPF [facility] Bacteria, ur 4+(A) [facility] Mucous, ur Present(A) [facility] Culture Reflex Comment Reflex to urine culture will be performed. [facility] Urine, bladder 05/25/2024 7: 26 PM SURG TECH 05/25/2024 7:36 PM SURG TECH Trinh Peacock MD LAB URINE ORDERABLES Kita l Result Performing Organization Address [facility] Co de Phone Number [facility] Department [place] [address] * (ABNORMAL) Urine culture Urine, bladder (05/25/2024 7:26 PM SURG TECH) Report Final Report: Greater than or equal to 100,000 colonies/mL of Escherichia coli (.) Organism ESCHERICHIA COLI [facility] Urine, bladder 05/25/2024 7: 26 PM SURG TECH 05/25/2024 8:33 PM SURG TECH Narrative [facility] - 05/27/2024 3:34 PM SURG TECH Urine culture reflexed based upon urinalysis results. Testing performed by [facility] ([phone]) Organism Antibiotic Method Susceptibility Escherichia coli Ampicillin [...] INTERPRETATION Susceptible Escherichia coli Cefdinir INTERPRETATION Susceptible Trinh Peacock MD LAB MICROBIOLOGY - GENERA L ORDERABLES Final Result Performing Organization Address [facility] Co de Phone Number [facility] Department [place] [address] * Troponin I high-sensitivity 2-hour (05/25/2024 7:21 PM SURG TECH) Trop I hs 4 <=17 ng/L Comment: Interpretive Data For further [facility] resources including the diagnostic algorithm and an aid in interpretation, copy and paste this link: https://bjhlab.testcatalog.org/show/hsTrop-1 Current Interpretive Data last revised 2019. Trop I hs delta 0 ng/L [facility] Trop I hs interp Insignificant [facility] Blood 05/25/2024 7:21 PM SURG TECH 05/25/2024 7:43 PM SURG TECH us Lesia Lisa MD LAB BLOOD ORDERABLES Fin al Result [facility] [place] [address] * OR INJECTION AA&/STRD OTHER PERIPHERAL NERVE/BRANCH (05/25/2024 6:32 PM SURG TECH) Narrative Gianluca Garcia MD - 05/25/2024 6:32 PM SURG TECH Lesia Lisa MD ? 05/25/2024 ??6:32 PM Nerve Block Date/Time: 05/25/2024 6:32 PM Performed by: Lesia Lisa MD Authorized by: Gianluca Garcia MD ?? [place] Protocol: ??RN Notified of Procedure: yes ?Informed [...] Cervical Spine WO Contrast (05/25/2024 5:47 PM SURG TECH) Anatomical Region Laterality Modality Head and Neck N/A Computed Tomogra phy 05/25/2024 6:09 PM SURG TECH Impressions 05/25/2024 6:14 PM SURG TECH 1. No acute intracranial process. 2. No [...] Joseph Pryor MD Narrative 05/25/2024 6:14 PM SURG TECH EXAMINATION: 1. CT head without contrast 2. [...] and agrees with it. Electronically signed by: Josehp Pryor MD Lesia Lisa MD IMG CT PROCEDURES Final Result * CT Pelvis WO Contrast (05/25/2024 5:47 PM SURG TECH) Anatomical Region Laterality Modality Body N/A Computed Tomogra phy 05/25/2024 5:58 PM SURG TECH Impressions 05/25/2024 7:19 PM SURG TECH Nondisplaced minimally impacted transcervical femoral neck fracture. Dictated by: Fili Velasquez MD The radiology attending physician has personally reviewed this study, and had reviewed and/or edited this written report and agrees with it. Electronically signed by: Fidel Troncoso MD, PHD Narrative 05/25/2024 7:19 PM SURG TECH EXAMINATION: CT of the pelvis without intravenous [...] unremarkable. ??Bilateral iliac vascular calcifications. Procedure Note Troncoso, Fidel Satish, MD PhD - 05/25/2024 EXAMINATION: CT of [...] Troncoso MD, PHD Lesia Lisa MD IMG CT PROCEDURES Final Result * ECG 12-LEAD (05/25/2024 5:31 PM SURG TECH) Narrative [facility] - 05/25/2024 5:31 PM SURG TECH Gianluca Garcia MD ? 05/25/2024 ??5:31 PM [...] ORDERABLES Final Re sult Performing Organization Address [facility] Co de Phone Number [facility] * Troponin I high-sensitivity series (baseline, 2hr, 4hr, 6hr) (05/25/2024 5:22 PM SURG TECH) Trop I hs <4 <=17 ng/L Comment: Interpretive Data For further hscTnI resources including the diagnostic algorithm and an aid in interpretation, copy and paste this link: https://bjhlab.testcatalog.org/show/hsTrop-1 Current Interpretive Data last revised 2019. Blood 05/25/2024 5:22 PM SURG TECH 05/25/2024 5:38 PM SURG TECH us Lesia Lisa MD LAB BLOOD ORDERABLES Fin al Result Performing Organization Address [facility] Co de Phone Number [facility] Department [place] [address] * Antibody identification (05/25/2024 5:21 PM SURG TECH) Antibody ID 1 Anti-D Blood 05/25/2024 5:21 PM SURG TECH 05/25/2024 5:21 PM SURG TECH us Lesia Lisa MD LAB BLOOD BANK TEST ORDE RABLES Final Result Performing Organization Address [facility] Co de Phone Number [facility] Department [place] [address] * XR Knee Right 1 or 2 Views (05/25/2024 5:18 PM SURG TECH) Anatomical Region Laterality Modality Lower Extremities, Knee Right Computed Radiography 05/25/2024 5:24 PM SURG TECH Impressions 05/25/2024 8:22 PM SURG TECH Chest: Small lung volumes. ??Streaky bilateral opacities [...] Troncoso MD, PHD Narrative 05/25/2024 8:22 PM SURG TECH EXAMINATION: XR CHEST 1 VIEW, XR FEMUR [...] 2 or More Views (05/25/2024 5:17 PM SURG TECH) Anatomical Region Laterality Modality Lower Extremities, Thigh, Femur Right Computed Radiography 05/25/2024 5:24 PM SURG TECH Impressions 05/25/2024 8:22 PM SURG TECH Chest: Small lung volumes. ??Streaky bilateral opacities [...] Troncoso MD, PHD Narrative 05/25/2024 8:22 PM SURG TECH EXAMINATION: XR CHEST 1 VIEW, XR FEMUR [...] XR Chest 1 View (05/25/2024 5:17 PM SURG TECH) Anatomical Region Laterality Modality Body, Chest N/A Computed Radiogr aphy 05/25/2024 5:24 PM SURG TECH Impressions 05/25/2024 8:22 PM SURG TECH Chest: Small lung volumes. ??Streaky bilateral opacities [...] Troncoso MD, PHD Narrative 05/25/2024 8:22 PM SURG TECH EXAMINATION: XR CHEST 1 VIEW, XR FEMUR [...] Result * Check Sample (05/25/2024 4:38 PM SURG TECH) ABO Rh O Negative [facility] OTHER 05/25/2024 4:38 PM SURG TECH 05/25/2024 4:45 PM SURG TECH us Gianluca Garcia MD LAB BLOOD ORDERABLES Final Result [facility] [place] [address] [facility] * eGFR (05/25/2024 4:26 PM SURG TECH) eGFR 87 >=60 mL/min/1. 73 m2 Comment: [...] last reviewed 2021. Blood 05/25/2024 4:26 PM SURG TECH 05/25/2024 4:48 PM SURG TECH us Lesia Lisa MD LAB BLOOD ORDERABLES Fin al Result [facility] [place] [address] * (ABNORMAL) Differential, auto (05/25/2024 4:26 PM SURG TECH) Neutrophil abs 8.6(H) 1.5 - 6.5 K/cumm Imm gran abs 0.0 0.0 - 0.1 K/cumm [facility] Lymphocyte abs 0.7(L) 0.8 - 3.3 K/cumm [facility] Monocyte abs 0.8 0.2 - 0.8 K/cumm [facility] Eosinophil abs 0.0 0.0 - 0.5 K/cumm [facility] Basophil abs 0.0 0.0 - 0.1 K/cumm [facility] Neutrophil pct 84.7 % [facility] Comment: Interpretive Data Percent cell count reference ranges are not reported, since discordance with absolute values may lead to misinterpretation of CBC data. Current Interpretive Data was last revised on 2017. Imm gran pct 0.4 % [facility] Comment: Interpretive Data Percent cell count reference ranges are not reported, since discordance with absolute values may lead to misinterpretation of CBC data. Current Interpretive Data was last revised on 2017. Lymphocyte pct 6.9 % [facility] Comment: Interpretive Data Percent cell count reference ranges are not reported, since discordance with absolute values may lead to misinterpretation of CBC data. Current Interpretive Data was last revised on 2017. Monocyte pct 7.6 % [facility] Comment: Interpretive Data Percent cell count reference ranges are not reported, since discordance with absolute values may lead to misinterpretation of CBC data. Current Interpretive Data was last revised on 2017. Eosinophil pct 0.2 % [facility] Comment: Interpretive Data Percent cell count reference ranges are not reported, since discordance with absolute values may lead to misinterpretation of CBC data. Current Interpretive Data was last revised on 2017. Basophil pct 0.2 % [facility] Comment: Interpretive Data Percent cell count reference ranges are not reported, since discordance with absolute values may lead to misinterpretation of CBC data. Current Interpretive Data was last revised on 2017. Blood 05/25/2024 4:26 PM SURG TECH 05/25/2024 4:48 PM SURG TECH us Lesia Lisa MD LAB BLOOD ORDERABLES Fin al Result [facility] Department [place] [address] * Heparin anti factor Xa activity (05/25/2024 4:26 PM SURG TECH) Pathologist [facility] [place] Anti Factor Xa 1.87 IUnits/mL Comment: Interpretive [...] revised on 2018. Blood 05/25/2024 4:26 PM SURG TECH 05/25/2024 5:40 PM SURG TECH us Lesia Lisa MD LAB BLOOD ORDERABLES Fin al Result Performing Organization Address [facility] de Phone Number [facility] Department [place] [address] * (ABNORMAL) CBC with auto differential (05/25/2024 4:26 PM SURG TECH) [facility] WBC 10.1(H) 3.8 - 9.9 K/cumm Hgb 12.3 11.9 - 15.5 g/dL [facility] Hct 37.9 35.6 - 45.5 % [facility] Plt 223 150 - 400 K/cumm [facility] MPV 10.2 9.1 - 12.3 fL [facility] RBC 4.15 3.90 - 5.20 M/cumm [facility] MCV 91.3 81.3 - 96.4 fL [facility] MCH 29.6 27.1 - 33.3 pg [facility] MCHC 32.5 32.3 - 35.7 g/dL [facility] RDW CV 15.4(H) 11.1 - 14.9 % [facility] RDW SD 51.8(H) 35.7 - 48.1 fL [facility] NRBC abs 0.00 0.00 - 0.01 K/cumm [facility] Blood 05/25/2024 4:26 PM SURG TECH 05/25/2024 4:48 PM SURG TECH Lesia Lisa MD LAB BLOOD ORDERABLES Fin al Result Performing Organization Address [facility] Co de Phone Number [facility] Department [place] [address] * aPTT (05/25/2024 4:26 PM SURG TECH) [facility] aPTT 38 28 - 38 sec Comment: Interpretive Data Heparin therapeutic range: 66.0 - 100.0 seconds. Range based on correlation with therapeutic heparin activity range of 0.3 - 0.7 Units/mL. Current interpretive data was last revised on 2023. Blood 05/25/2024 4:26 PM SURG TECH 05/25/2024 5:40 PM SURG TECH Lesia Lisa MD LAB BLOOD ORDERABLES Fin al Result Performing Organization Address [facility] Co de Phone Number [facility] Department [place] [address] * (ABNORMAL) Protime-INR (05/25/2024 4:26 PM SURG TECH) PT 15.7(H) 9.7 - 13.0 sec INR 1.44(H) 0.90 - 1.20 [facility] Comment: Interpretive data Oral anticoagulant therapeutic ranges: Venous thromboembolism prophylaxis or treatment: 2.0-3.0 CARDIOLOGY Standard range: 2.0-3.0 High-intensity range: 2.5-3.5 Refer to indication-specific guidelines for appropriate target ranges for prosthetic heart valve replacement. Current interpretive data was last revised on 2019. Blood 05/25/2024 4:26 PM SURG TECH 05/25/2024 5:40 PM SURG TECH Lesia Lisa MD LAB BLOOD ORDERABLES Fin al Result Performing Organization Address [facility] Co de Phone Number [facility] [place] [address] * (ABNORMAL) Type and screen (05/25/2024 4:26 PM SURG TECH) Oma, indirect Positive(A) ABO Rh O Negative [facility] Blood 05/25/2024 4:26 PM SURG TECH 05/25/2024 4:34 PM SURG TECH Narrative [facility] - 05/25/2024 5:21 PM SURG TECH Has the patient had Daratumumab or Isatuximab in the past 6 months?->Unknown us Lesia Lisa MD LAB BLOOD BANK TEST ORDE RABPRATEEK Final Result Performing Organization Address [facility] Co de Phone Number [facility] Department [place] [address] * (ABNORMAL) Basic metabolic panel (05/25/2024 4:26 PM SURG TECH) Sodium 142 135 - 145 mmol/L Potassium, pl 3.4 3.3 - 4.9 mmol/L [facility] Chloride 105 97 - 110 mmol/L [facility] CO2 26 22 - 32 mmol/L [facility] Anion gap 11 2 - 15 mmol/L [facility] BUN 9 6 - 25 mg/dL [facility] Creatinine 0.67 0.60 - 1.10 mg/dL [facility] Glucose 129 70 - 199 mg/dL [facility] Comment: Interpretive Data Fasting glucose >/= 126 [...] 2022. Calcium 8.4(L) 8.5 - 10.3 mg/dL [facility] Blood 05/25/2024 4:26 PM SURG TECH 05/25/2024 4:48 PM SURG TECH us Lesia Lisa MD LAB BLOOD ORDERABLES Fin al Result Performing Organization Address [facility] Co de Phone Number [facility] Department [place] [address] * ECG 12 lead (05/25/2024 1:58 PM SURG TECH) 05/25/2024 1:58 PM SURG TECH Narrative [facility] - 05/27/2024 9:22 AM SURG TECH Vent Rate: 81 bpm RR Interval: 735 msec OR Interval: 183 msec QRS Duration: 89 msec QT Interval: 392 msec QTC Interval: 429 msec P-R-T [place]: 80 - -62 - 71 degrees IMPRESSION: [...] Kulwinder Johnston MD ECG ORDERABLES Final Result [facility] [email or web address] [facility] * XR Hip Right 2 or 3 Views W Pelvis (05/25/2024 12:46 PM SURG TECH) Anatomical Region Laterality Modality Lower Extremities, Hip, Pelvis Right C omputed Radiography 05/25/2024 1:00 PM SURG TECH Narrative 05/25/2024 1:02 PM SURG TECH EXAM DESCRIPTION: ?? XR HIP RIGHT 2 [...] PM T: ??05/25/2024 1:02 PM Report ID: [id number] Reading Location: ??[id number] Procedure Note Yoni Calderon MD - 05/25/2024 [...] Yoni Calderon M.D. LB: TARIK Report ID: [id number] Reading Location: [place] [address] us Kulwinder Johnston MD IMG XR PROCEDURES Final Resu lt * eGFR (05/25/2024 12:32 PM SURG TECH) eGFR 88 >=60 mL/min/1. 73 m2 Comment: [...] reviewed 2021. Blood 05/25/2024 12:3 2 PM SURG TECH 05/25/2024 12:35 PM SURG TECH us Kulwinder Johnston MD LAB BLOOD ORDERABLES Final R esult [facility] Department [place] [address] * Differential, auto (05/25/2024 12:32 PM SURG TECH) Neutrophil abs 4.3 1.5 - 6.5 K/cumm Imm gran abs 0.0 0.0 - 0.1 K/cumm [facility]) Lymphocyte abs 0.9 0.8 - 3.3 K/cumm [facility] ([place]) Monocyte abs 0.5 0.2 - 0.8 K/cumm [facility] ([place]) Eosinophil abs 0.1 0.0 - 0.5 K/cumm [facility] ([place]) Basophil abs 0.0 0.0 - 0.1 K/cumm [facility] ([place]) Neutrophil pct 73.5 % [facility] Comment: Interpretive Data Percent cell count reference ranges are not reported, since discordance with absolute values may lead to misinterpretation of CBC data. Current Interpretive Data was last revised on 2017. Imm gran pct 0.7 % [facility] Comment: Interpretive Data Percent cell count reference ranges are not reported, since discordance with absolute values may lead to misinterpretation of CBC data. Current Interpretive Data was last revised on 2017. Lymphocyte pct 15.7 % [facility] Comment: Interpretive Data Percent cell count reference ranges are not reported, since discordance with absolute values may lead to misinterpretation of CBC data. Current Interpretive Data was last revised on 2017. Monocyte pct 8.6 % [facility] Comment: Interpretive Data Percent cell count reference [...] on 2017. Blood 05/25/2024 12:3 2 PM SURG TECH 05/25/2024 12:35 PM SURG TECH us Kulwinder Johnston MD LAB BLOOD ORDERABLES Final R esult [facility] Department [place] [address] * (ABNORMAL) CBC with auto differential (05/25/2024 12:32 PM SURG TECH) WBC 5.8 3.8 - 9.9 K/cumm Hgb [...] [facility] Blood 05/25/2024 12:3 2 PM SURG TECH 05/25/2024 12:35 PM SURG TECH us Kulwinder Johnsotn MD LAB BLOOD ORDERABLES Final R esult [facility] Department [place] [address] * Comprehensive metabolic panel (05/25/2024 12:32 PM SURG TECH) Sodium 140 135 - 145 mmol/L Potassium, [...] [facility] Blood 05/25/2024 12:3 2 PM SURG TECH 05/25/2024 12:35 PM SURG TECH us Kulwinder Johnston MD LAB BLOOD ORDERABLES Final R esult [facility] Department [place] [address] * Imaging Ultrasound Trigger Point INJ 3+ Muscle Groups () (03/12/2024 1:18 PM SURG TECH) Narrative [facility] - 03/12/2024 1:18 PM SURG TECH The images from this study are not interpreted by Radiology. ??Please refer to the physician's procedure / OR operative note. us Darian Baron MD IMG PAIN MGMT PROCEDURE S Final Result Performing Organization Address [facility]/ZIP Co de Phone Number [facility] * Dexa Axial Skeleton Bone Density 1 Or 2 Site (06/23/2022 12:15 PM SURG TECH) Anatomical Region Laterality Modality Body N/A Other 06/23/2022 7:39 PM SURG TECH Narrative 06/23/2022 7:40 PM SURG TECH EXAM DESCRIPTION: ?? DEXA AXIAL SKELETON BONE DENSITY 1 OR MORE SITES REASON FOR STUDY: ?82 y/o ?? year old ?? F ??with given history of screening. ?? Postmenopausal Plan Examiner/Model: ?? [employer] ([id number]/N [id number]) CLINICAL INFORMATION: Current height: ??60.5 ??inches ? [...] 7:40 PM - Electronically signed by ??Zenon WALLS: KAVITA D: ??06/23/2022 7:40 PM T: ??06/23/2022 7:40 PM Report ID: [id number] Reading Location: ??[id number] Procedure Note Zenon Hernandez MD - 06/23/2022 EXAM DESCRIPTION: DEXA AXIAL SKELETON BONE DENSITY 1 OR MORE SITES REASON FOR STUDY: 82 y/o year old F with given history ofscreening. Postmenopausal Plan Examiner/Model: [employer] ([id number]/N [id number]) CLINICAL INFORMATION: Current height: 60.5 inches Maximum [...] Zenon Hernandez M.D. MF: KAVITA Report ID: [id number] Reading Location: [place] [address] Mohan Kerr MD IMG DXA PROCEDURES Final Result from Last 3 Months or Most Recently Relevant to Health Maintenance Insurance [facility] [place] [address] MEDICARE [facility] [employer] Advance Directives For more information, please contact: [phone] Documents on File Type Date Recorded Patient Recreational Therapy Technician Expl anation Power of Entry Level Marketing Assistant 12/11/2023 9:14 AM ADVANCE DIRECTIVE 11/29/2023 3:53 PM POLST FORM Power of Entry Level Marketing Assistant 08/25/2022 10:31 AM * Full Code (Latest [...] 11:45 AM 12/19/2017 2:56 PM Care Teams Route Returner Relationship Specialty Start Date End Date Mohan Kerr MD [address] [place] [address] PCP - General Family Medicine 06/23/22 Behzad Fagan MD [address] [place] [address] Consulting Physician Radiation Oncology 09/01/22 Tamiko Teran MD [address] [address] Consulting Physician Otolaryngology 09/01/22
--- OUTSIDE RECORDS SUMMARY | 2024-06-04 10:52 | XMS_ITS | Patient Health Summary ---
Author Organization [facility] Address [address] [place] [address] Care Team Providers Care Sash Finisher Name Role Phone Zenon Thomas MD Primary Care Provider [phone] Note from [facility],non-owned Affiliates and Associated Physician Practices is amultiple site organization consisting of ambulatory clinics and hospital sitesin [place], [place], [place] and [place]. This disclosure is being madepursuant to the Care Everywhere program and may not contain all information available regarding this patient. Last updated 18.[facility] Fluentify Allergies * Morphine Medications * Be aware that medications may not be up to date on this document. Alwaysverify current medications with the patient. * atorvastatin (LIPITOR) 10 MG tablet Take 10 mg by mouth at bedtime. * estrogens, conjugated, (PREMARIN) 0.3 MG tablet Take 0.3 mg by mouth once daily. * metoprolol succinate XL 24hr (TOPROL XL) 25 MG tablet Take 12.5 mg by mouth once daily. * Calcium Polycarbophil (FIBER LAXATIVE PO) Take by mouth. * aspirin 81 MG tablet Take 81 mg by mouth once daily. * Calcium Carbonate-Vitamin D (CALCIUM + D PO) Take by mouth. * Lactase (DAIRY DIGESTIVE SUPPLEMENT PO) Take by mouth. * naproxen (NAPROSYN) 500 MG tablet Take 500 mg by mouth 2 times daily. * diclofenac sodium (VOLTAREN) 1 % gel Apply to affected area 4 times daily. * loratadine (CLARITIN) 10 MG tablet(Started 07/12/2012) Take 1 Tab by mouth once daily. 5 refills left * saline nasal spray (SODIUM CHLORIDE) 0.65 % nasal spray(Started 07/12/2012) Woodstock 1 Woodstock into each nostril as needed for Dry Nose. * acetaminophen (TYLENOL) 500 MG tablet(Started 07/12/2012) Take 2 Tabs by mouth 3 times daily. Maximum allowable Acetaminophen amount = 4 Grams (4000 mg) / 24hours. * Cholecalciferol (VITAMIN D) 1000 UNIT capsule(Started 07/12/2012) Take 1 Cap by mouth once daily. 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 TRUCK DRIVER Procedures * CYNTHIA STAINING PATTERNS REFLEXED(Performed 07/12/2012) Performed for Raynauds disease, Sicca syndrome (HCC) * C-REACTIVE PROTEIN(Performed 07/12/2012) Performed for Raynauds disease, Sicca syndrome (HCC) * MADAY BLOOD SCREEN W/REFLEX TITER(Performed 07/12/2012) Performed for Raynauds disease, Sicca syndrome (HCC) * VITAMIN D 25-HYDROXY(Performed 07/12/2012) Performed for Osteopenia Results * (ABNORMAL) CYNTHIA STAINING PATTERNS ([facility]) (07/12/2012 3:01 PM MILK PICKUP TRUCK DRIVER) Homogeneous Pattern NOT NEEDED [facility] INSURANCE BILL Comment:Ancillary determined the test is not needed Nucleolar Pattern NOT NEEDED [facility] INSURANCE BILL Comment:Ancillary determined the test is not needed Speckled Pattern NOT NEEDED [facility] INSURANCE BILL Comment:Ancillary determined the test is not needed Centromere Pattern 1:1280(H) [facility] INSURANCE BILL Note [facility] INSURANCE BILL Comment: A positive MADAY result may occur in healthy individuals or be associated with a variety of diseases. ??See interpre- tation below: ? . Pattern ?Antigen Detected ??Suggested Disease Association ? Homogeneous ??DNA(ds,ss,), ?High titers - SLE (Smooth) ? Histone ? Speckled ? Sm, PERFORMANCE INSTRUCTOR, SCL-70, ??SLE,MCTD,Scleroderma,Sjogrens ? SS-A/SS-B ? Nucleolar ?SCL-70, PM-1/SCL ??High titers Scleroderma Poly- ? myositis/Scleroderma Overlap ? Centromere ?? Centromere ?PSS w/Crest syndrome variable ?? 07/12/2012 3:01 PM MILK PICKUP TRUCK DRIVER 07/12/2012 6:30 PM MILK PICKUP TRUCK DRIVER Narrative Resulting Agency Comment [facility] [address] ??[facility] [phone] Ariel Sterling MD LAB - PATHOLOGY/CYTO LOGY ORDERABLES Performing Organization Address [facility] Co de Phone Number [facility] INSURANCE BILL * C-REACTIVE PROTEIN (07/12/2012 3:01 PM MILK PICKUP TRUCK DRIVER) C-Reactive Protein 1.1 0.0 - 4.9 mg/L [facility] INSURANCE BILL Blood specimen (specimen) BLOOD SPECIMEN / Unknown 07/12/2012 3:01 PM MILK PICKUP TRUCK DRIVER 07/12/2012 6:30 PM MILK PICKUP TRUCK DRIVER Narrative Resulting Agency Comment [facility] [address] ??[place] [phone] Ariel Sterling MD LAB - CHEMISTRY LITOE RABPRATEEK Performing Organization Address [facility] de Phone Number [facility] INSURANCE BILL * MADAY BLOOD SCREEN W/REFLEX TITER (07/12/2012 3:01 PM MILK PICKUP TRUCK DRIVER) MADAY See patterns [facility] INSURANCE BILL Comment: ?Negative ?? <1:80 ?Borderline ??1:80 ?Positive ?? >1:80 Blood specimen (specimen) BLOOD SPECIMEN / Unknown 07/12/2012 3:01 PM MILK PICKUP TRUCK DRIVER 07/12/2012 6:30 PM MILK PICKUP TRUCK DRIVER Narrative Resulting Agency Comment [facility] [address] ??[facility] [phone] Ariel Sterling MD LAB - CHEMISTRY [place]LLO [facility] INSURANCE BILL * VITAMIN D 25-HYDROXY (07/12/2012 2:57 PM MILK PICKUP TRUCK DRIVER) Vitamin D, 25 Hydroxy 44.9 30.0 - 100.0 ng/mL [facility] INSURANCE BILL Comment: Vitamin D deficiency has been defined by the [place] of Medicine and an Endocrine Society practice guideline as a level of serum 25-OH vitamin D less than 20 ng/mL (1,2). The Endocrine Society went on to further define vitamin D insufficiency as a level between 21 and 29 ng/mL (2). 1. IOM ([place] of Medicine). 2010. Dietary reference ?? intakes for calcium and D. [place]: The ?? National Academies Press. 2. Nova MF, Cristobal [place], Tate BILLY, et al. ?? Evaluation, treatment, and prevention of vitamin D ?? deficiency: an Endocrine Society clinical practice ?? guideline. JCEM. 2010; 96(7):1911-30. Blood specimen (specimen) BLOOD SPECIMEN / Unknown 07/12/2012 2:57 PM MILK PICKUP TRUCK DRIVER 07/12/2012 6:30 PM MILK PICKUP TRUCK DRIVER Narrative Resulting Agency Comment [facility] [address] ??[facility] [phone] Ariel Sterling MD LAB - CHEMISTRY [place] [facility] INSURANCE BILL Care Teams Sash Finisher Relationship Specialty Start Date End Date Zenon Thomas MD [address] [place] [id number] [facility] - General 06/21/12
--- OUTSIDE RECORDS SUMMARY | 2024-06-04 10:52 | XMS_ITS | Encounter Summary ---
Author Organization [facility] Address [address] [place] [address] Care Team Providers Care Receivable Clerk Name Role Phone Mohan Kerr MD Primary Care Provider [phone] Behzad Fagan MD Unavailable [phone] Tamiko Teran MD Unavailable [phone] Encounter Details Date Type Department Care Team (Late st Contact Info) Description 12/15/2023 Telephone [facility] [address] [place] [address] Mohan Kerr MD [address] [place] [address] Social History Tobacco Use Types Packs/Day Years [...] points, staff should administer the PHQ-9) 0 11/27/2023 Personal Safety Answer Date Recorded Have you ever been in or are you currently in a harmful physical or emotional relationship or is someone making you feel afraid or unsafe? Denies 08/29/2023 Comments No Sex and Gender Information Value Date Recorded Sex Assigned at Not on file Legal Sex Female 11:55 PM EXECUTIVE PASTRY CHEF Gender Identity Female 06/28/2019 7:58 AM EXECUTIVE PASTRY CHEF Sexual Orientation Straight 06/28/2019 7: 59 AM EXECUTIVE PASTRY CHEF documented as of this encounter Plan of Treatment Not on file documented as of this encounter Visit Diagnoses Not on filedocumented in this encounter Care Teams Receivable Clerk Relationship Specialty Start Date End Date Mohan Kerr MD [address] [place] [address] PCP - General Family Medicine 06/23/22 Behzad Fagan MD [address] [place] [address] Consulting Physician Radiation Oncology 09/01/22 Tamiko Teran MD [address] [address] Consulting Physician Otolaryngology 09/01/22 documented as of this encounter
--- OUTSIDE RECORDS SUMMARY | 2024-06-04 10:52 | XMS_ITS | Patient Health Record ---
Author Organization [facility] Address [address] [place] [address] Care Team Providers Care Supervisor Acoustical Tile Carpenters Name Role Phone Leigh Newell Unavailable [phone] Lavonne Borjas NP Unavailable Unavailable Allergies Allergen (clinical drug ingredient) Drug/Non Drug Allergy documented on EMR Reaction Allergy Type Onset Date Status predniSONE Unknown Drug Allergy 11/16/2020 Activ e morphine Morphine Unknown Drug Allergy 11/16/2020 Active Substance with sulfonamide structure and antibacterial mechanism of action (substance) Sulfa Antibiotics Unknown Drug Allergy 11/16/2020 Active Reason For Referral No Information Medications Medication SIG (Take, Route, Frequency, Duration) Notes Start Date End Date Status Mucinex 600 mg take 1 tablet (600 mg) by oral route every 12 hours oral *Pick strength-form from [employer] for eRX* Active Aspirin Adult Low Strength 81 MG take 1 tablet (81 mg) by oral route once daily Oral 1 Active NexIUM 40 MG take 1 capsule (40 mg) by oral route once daily Oral 1 Active PROBIOTIC WITH PREBIOTIC - take 2 tablets 2 times daily oral *Reorder from [employer] for eRx and Interaction Alerts* Active Cevimeline HCl 30 mg TAKE 1 CAPSULE BY MOUTH THREE TIMES DAILY FOR 30 DAYS Oral 01/16/2023 Active Align 4 mg take 1 capsule by oral route once Oral 1 Active Synthroid 112 MCG 1 tablet in the morning on an empty stomach Orally Once a day for 30 day(s) Active FiberCon 625 MG take 1 tablet by oral route once Oral 1 Active Enzyme Digest take 1 capsule by oral route once Oral 1 Active Crestor 10 MG take 1 tablet (10 mg) by oral route once daily Oral 1 Active esomeprazole 40 mg take orally once a day oral *Reorder from [facility] for eRx and Interaction Alerts* Active Plan Of Treatment No Information Insurance Providers Payer Name Payer Address Payer Phone Subscriber Number Group Number Insured Name Patient Relationship to Insured Coverage Start Date Coverage End Date Demarcus AMPARO [address] [place] [address] [id number] Savannah Curry Self - patient is the insured Medical (General) History Medical History History ICD Code Sutton's esophagus; GERD (gastroesophageal reflux disease); Hyperlipidemia; osteoarthritis; Scleroderma; Thyroid cancer; Surgical History Surgery Date(Month/Year) cholecystectomy; 2020-11-16 Hysterectomy; 2020-11-16 Hand surgery; 2020-11-16 C section; 2020-11-16
[2024-06-04 11:04] LABS: Alanine Aminotransferase 19 U/L (6-35); Albumin Level 3.7 g/dL (3.5-5.1); Alkaline Phosphatase 133 U/L (38-126); Anion Gap 8 mmol/L (4-12); Aspartate Amino Transferase 29 U/L (14-36); Bilirubin,Total 0.6 mg/dL (0.2-1.3); Blood Urea Nitrogen 10 mg/dL (7-17); Calcium 8.3 mg/dL (8.4-10.2); Carbon Dioxide 28 mmol/L (22-30); Chloride 101 mmol/L (98-107); Estimated CRCL calculation 55 ml/min; Estimated Glomerular Filt Rate > 60; Glucose 120 mg/dL (65-110); Potassium 4.1 mmol/L (3.4-5.0); Sodium 137 mmol/L (137-145)
[2024-06-04 11:13] LABS: NT Pro B Type Natriuretic Pept 231 pg/mL (19.9-100)
[2024-06-04 12:47] VITALS: BP 108/96; PULSE 86; RESP 17; O2SAT 95
[2024-06-04] MEDS: AZITHROMYCIN 500 MG/NS 250 ML 500 MG/250 ML BAG 250 MG IVPB (12:49)
--- NOTE | 2024-06-04 13:36 | P.HP_ITS ---
H&P: HPI History of Present Illness Date/Time: 06/04/24 13:36 Chief Complaint: Fall, Hypoxia Narrative: 84 y/o F presents here for further evaluation of fall and hypoxia with PMH of atrial fibrillation on anticoagulation, dementia, ? ? The patient presents here via EMS from [facility] for further evaluation of fall and hypoxia. The patient had a closed reduction of the right hip at [facility] on XX. She was discharged to [facility] on XX. She reports a fall out of bed last night around XX. She fell on to her XX side. Now reporting 10/10 right hip pain. She denies XX. Upon EMS evaluation, she was noted to be 87% on room air. She does not have a supplemental O2 requirement at baseline. Patient was placed on 2 L nasal cannula with improvement to 93%. Initial VS at presentation: HR 91, RR 18, 141/71, and 93% on 2 L NC. ED workup showed: WBC 10.2, hemoglobin 11.5 (previously 11.6 on 06/01/2024), no significant electrolyte derangements, glucose 120, creatinine 0.52 and GFR >60, BNP 231 (WNL for age), and UA showed trace leuk esterase. CXR showed coarse interstitial pattern in the bilateral mid and lower lung zones (pulmonary edema versus atelectasis versus pneumonia versus chronic ILD). Head CT showed no intracranial hemorrhage, mass, or acute infarct and atrophy/chronic white matter changes. Hip/pelvic XR showed a laterally impacted subcapital fracture of the proximal right femur with screw fixation and no acute osseous abnormality. C- spine CT showed severe cervical spondylosis with no acute osseous abnormality. Review of Systems Review of Systems: All systems reviewed & are unremarkable except as noted in HPI and below [facility] Social History Social History Smoking status: Never smoker Alcohol intake: current Drinks per week: 1 Substance use: never Substance use type: does not use Do You Feel Safe in your Home?: Yes Lack of Transportation: No Lack of Food: Never True Current Housing: I Have Housing Concerned About Future Housing: No Difficulty Paying Gas/Electric Bills: No Difficulty Paying for Meds: No Currently Unemployed: No Education: High School Diploma/GED Difficulty w/ Childcare or Family Care: No Spiritual care concerns: No Meds Home Medications and Allergies Home Medications ?Medication ?Instructions ?Recorded ?Confirmed ?Type acetaminophen 325 mg tablet 650 mg PO TID 05/30/24 05/30/24 History apixaban 5 mg tablet (Eliquis) 5 mg PO BID 05/30/24 05/30/24 History cevimeline 30 mg capsule 30 mg PO TID 05/30/24 05/30/24 History cyanocobalamin (vitamin B-12) 100 100 mcg PO DAILY 05/30/24 05/30/24 History mcg tablet diltiazem HCl 120 mg 120 mg PO DAILY 05/30/24 05/30/24 History capsule,extended release 12 hr (Cardizem SR) esomeprazole magnesium 40 mg 40 mg PO DAILY 05/30/24 05/30/24 History capsule,delayed release guaifenesin 1,200 mg tablet, 1,200 mg PO DAILY 05/30/24 05/30/24 History extended release 12 hr hydroxyzine HCl 10 mg tablet 5 mg PO HS PRN unspecified 05/30/24 05/30/24 History levothyroxine 112 mcg capsule 112 mcg PO DAILY 05/30/24 05/30/24 History lidocaine 5 % topical patch 1 patch topical Q24H 05/30/24 05/30/24 History methocarbamol 750 mg tablet 750 mg PO TID 05/30/24 05/30/24 History multivitamin 1 tablet PO DAILY 05/30/24 05/30/24 History oxycodone 5 mg tablet 2.5 mg PO Q4H PRN pain 05/30/24 05/30/24 History polyethylene glycol 3350 17 gram 17 g PO DAILY 05/30/24 05/30/24 History oral powder packet rosuvastatin 10 mg tablet 10 mg PO HS 05/30/24 05/30/24 History sennosides 8.6 mg-docusate sodium 1 tab-cap PO BID 05/30/24 05/30/24 History 50 mg tablet sertraline 100 mg tablet 100 mg PO DAILY 05/30/24 05/30/24 History Allergies Allergy/AdvReac Type Severity Reaction Status Date / Time codeine Allergy Diarrhea, Verified 06/04/24 10:29 Nausea, Vomitting sulfamethoxazole (From Allergy Hives, Verified 06/04/24 10:29 Sulfamethoxazole-Trimethoprim) Rash, Diarrhea trimethoprim (From Allergy Hives, Verified 06/04/24 10:29 Sulfamethoxazole-Trimethoprim) Rash, Diarrhea morphine AdvReac Hallucinati Verified 06/04/24 10:29 ng prednisone AdvReac Itching Verified 06/04/24 10:29 Vital Signs Vital Signs - 24 hr 06/04/24 08:30 06/04/24 10:31 06/04/24 12:47 Pulse Rate 91 86 86 Respiratory Rate 18 18 17 Blood Pressure 141/71 H 142/64 H 108/96 H Pulse Oximetry 93 92 95 Oxygen Delivery Nasal Cannula Oxygen Flow Rate 2 H&P: Results Labs Labs: Short CBC 06/04/24 Range/Units 10:29 WBC 10.2 H (4.5-10.0) K/mm3 Hgb 11.5 L (12.0-15.0) g/dL Hct 35.4 L (37.0-47.0) % Plt Count 418 H D (150-375) k/mm3 BMP 06/04/24 10:29 Sodium 137 Potassium 4.1 Chloride 101 Carbon Dioxide 28 BUN 10 Creatinine 0.52 L Glucose 120 H Calcium 8.3 L Liver Function 06/04/24 Range/Units 10:29 Total Bilirubin 0.6 (0.2-1.3) mg/dL AST 29 (14-36) U/L ALT 19 (6-35) U/L Alkaline Phosphatase 133 H (38-126) U/L Albumin 3.7 (3.5-5.1) g/dL Urine 06/04/24 Range/Units 10:29 Urine Color Yellow (Yellow) Urine Appearance Clear (Clear) Urine pH 7.5 (5.0-9.0) Ur Specific [place] 1.009 (1.001-1.035) Urine Protein Negative (Negative) mg/dL Urine Glucose (UA) Negative (Negative) mg/dL Assessment and Plan Assessment and plan (1) Pneumonia: Qualifiers: Pneumonia type: due to unspecified organism Laterality: bilateral Lung location: unspecified part of lung Qualified Code(s): J18.9 - Pneumonia, unspecified organism Code(s): J18.9 - Pneumonia, unspecified organism Status: Acute Assessment and Plan: - did not meet SIRS criteria, HR only. New hypoxia. Blood cultures were obtained on 06/04, follow. - CXR: Coarse interstitial pattern in the bilateral mid and lower lung zones which could represent mild pulmonary edema, atelectasis, pneumonia or chronic interstitial lung disease. - risk factors and complicating factors: recent hospitalization, currently in rehab - started on HAP tx: cefepime and vancomycin on 06/04 - MRSA PCR and Viral PCR - sputum culture, if obtainable - new supplemental O2 requirement: 2L NC - supportive care (2) Ground-level fall: Code(s): W18.30XA - Fall on same level, unspecified, initial encounter Status: Acute Assessment and Plan: - CT head: No intracranial hemorrhage, mass, or acute infarct. Atrophy and chronic white matter changes, as above - C-spine CT: Severe cervical spondylosis with no acute osseous abnormality. - hip/pelvis XR: Laterally impacted subcapital fracture of the proximal right femur with screw fixation. No acute osseous abnormality. - fall precautions (3) Closed displaced fracture of right femoral neck: Code(s): S72.001A - Fracture of unspecified part of neck of right femur, initial encounter for closed fracture Status: Acute Assessment and Plan: - closed reduction of the right hip on [facility] at [facility] - continue PT/OT evaluation and treatment - analgesics p.r.n. (4) A-fib: Qualifiers: Atrial fibrillation type: unspecified Qualified Code(s): I48.91 - Unspecified atrial fibrillation Code(s): I48.91 - Unspecified atrial fibrillation Status: Chronic Assessment and Plan: - continue home medications: (5) HTN (hypertension): Qualifiers: Hypertension type: primary hypertension Qualified Code(s): I10 - Essential (primary) hypertension Code(s): I10 - Essential (primary) hypertension Status: Chronic Assessment and Plan: - chronic, currently 108/96 - continue home medications: - monitor Plan Diet: Regular GI Prophylaxis: Not currently indicated DVT Prophylaxis: Eliquis Lines: Peripheral Code Status: Full code Quality VTE Prophylaxis VTE prophylaxis: pharmacologic ordered Hospitalist MIPS Advance Care Plan I have confirmed that the patient's Advanced Care Plan is present, code status is documented, or surrogate decision maker is listed in patient medical record.: Yes
[2024-06-04] MEDS: fentaNYL CITRATE INJ (*CRX) 100 MCG/2 ML VIAL 25 MCG IV PUSH (14:13)
[2024-06-04] MEDS: CEFEPIME 2 GM/NS 50 ML 2 GM/50 ML BAG IVPB (14:19)
[2024-06-04 14:21] VITALS: BP 134/72; PULSE 91; RESP 14; TEMP 36.6; O2SAT 94
--- NOTE | 2024-06-04 14:36 | PC.NURSE ---
discussed plan for patient to return to [facility]. Dank from care coordination verified with [facility] of [facility] that they will continue her rx antibiotics, oxygen. Family & patient agreeable for plan of care to return to [facility]. Lunch ordered for patient, patient requested pain medication and orders received. Pt medicated for pain. Will arrange transport for patient to return to [facility].
[2024-06-04 16:18] VITALS: BP 132/75; PULSE 98; RESP 16; O2SAT 94
== END 2024-06-04 16:41 ==
LOC: ANHED 10:14 → ANH3MEDSUR 14:53
PROVIDERS: Emergency Provider Nurse Practitioner Family; PCP Family Medicine
DX: J18.9 Pneumonia, unspecified organism (principal); M25.551 Pain in right hip; S72.011D Unspecified intracapsular fracture of right femur, subsequent encounter for closed fracture with routine healing; F03.90 Unspecified dementia, unspecified severity, without behavioral disturbance, psychotic disturbance, mood disturbance, and anxiety; I48.91 Unspecified atrial fibrillation; M47.812 Spondylosis without myelopathy or radiculopathy, cervical region; Z87.440 Personal history of urinary (tract) infections; Z79.01 Long term (current) use of anticoagulants; X58.XXXD Exposure to other specified factors, subsequent encounter; W06.XXXA Fall from bed, initial encounter
CPT/HCPCS: 36415; 70450; 71046; 72125; 73521; 80053; 81001; 83880; 85025; 87040; 96365; 96366; 96367; 96368; 96375; 96376; 99284; J0456; J0692; J0696; J3010